=== PATIENT | male | born 1950 | race Caucasian/White ===

== ENCOUNTER 2017-06-12 09:30 | Inpatient (IN) ==
[2017-06-11 14:25] LABS: Basophils # (Auto) 0 K/mcL (0.0-0.3); Basophils % (Auto) 0.4 % (0.0-2.0); Eosinophils # (Auto) 0.1 K/mcL (0.0-0.7); Eosinophils % (Auto) 1.4 % (0.0-7.0); Lymphocytes # (Auto) 0.9 K/mcL (1.5-4.8); Lymphocytes % (Auto) 19.9 % (15.5-49.0); Mean Cell Volume 100.4 fL (80.0-100.0); Mean Corpuscular HGB Conc 34.7 g/dL (31.0-36.0); Mean Corpuscular Hemoglobin 34.8 pg (26.0-34.0); Monocytes # (Auto) 0.6 K/mcL (0.1-0.9); Monocytes % (Auto) 13.3 % (1.0-12.0); Platelet Count 113 K/mcL (140-440); RBC 3.77 M/mcL (4.50-5.90); Red Cell Distribution Width 14.4 % (11.5-14.5)
[2017-06-11 14:34] LABS: Appearance,Urine CLEAR; Bacteria,Urine 0 /hpf (0); Bilirubin,Urine NEG (NEG); Color,Urine AMBER; Glucose,Urine (UA) NEGATIVE (NEG); Leukocyte Esterase,Urine 25 /uL (NEG); Mucus,Urine MOD /hpf (0); Nitrate,Urine NEG (NEG); Protein,Urine NEG (NEG); Specific Gravity,Urine 1.024 (1.000-1.035); Urine Blood 0.03 mg/dL (<0.03); Urine RBC 3 /hpf (0-1); Urine Squamous Epithelial Cell < 1 /hpf (0-4); Urine WBC 14 /hpf (0-4)
[2017-06-11 14:42] LABS: Blood Urea Nitrogen 14 mg/dl (8-23)
[~2017-06-12 09:30] MED LIST: CELECOXIB 200 MG CAPSULE PO SCH; KETOROLAC 30 MG, ROPIVACAINE HCL/PF 49.5 ML, EPINEPHrine 0.5 MG, 0.9 % SODIUM CHLORIDE ... IJ SCH; PREGABALIN 75 MG CAPSULE PO SCH; ceFAZolin 1 GM VIAL IV SCH; oxyCODONE 10 MG TAB.ER.12H PO SCH
[2017-06-12] MEDS ORDERED: LIDOCAINE HCL/PF 100 MG/5 ML SYRINGE IV ONE (14:05)
[2017-06-12] MEDS ORDERED: MIDAZOLAM 2 MG/2 ML VIAL IV ONE (14:05)
[2017-06-12] MEDS ORDERED: SUCCINYLCHOLINE 20 MG/ML ML IV ONE (14:05)
[2017-06-12] MEDS ORDERED: PROPOFOL 200 MG/20 ML VIAL IV ONE (14:05)
[2017-06-12] MEDS ORDERED: fentaNYL 100 MCG/2 ML VIAL IV ONE (14:05)
[2017-06-12] MEDS ORDERED: DEXAMETHASONE 10 MG/ML VIAL IV ONE (14:05)
[2017-06-12] MEDS ORDERED: ONDANSETRON 4 MG/2 ML VIAL IV ONE (14:05)
[2017-06-12] MEDS ORDERED: IPRATROPIUM/ALBUTEROL 3 ML AMPUL.NEB NEB PRN (15:06)
[2017-06-12] MEDS ORDERED: fentaNYL 100 MCG/2 ML VIAL IV PRN (15:06)
[2017-06-12] MEDS ORDERED: ATROPINE SULFATE 0.4 MG/ML VIAL IV PRN (15:06)
[2017-06-12] MEDS ORDERED: ePHEDrine 50 MG/ML AMPUL IV PRN (15:06)
[2017-06-12] MEDS ORDERED: diphenhydrAMINE 50 MG/ML VIAL IV PRN (15:06)
[2017-06-12] MEDS ORDERED: FLUMAZENIL 0.1 MG/ML ML IV PRN (15:06)
[2017-06-12] MEDS ORDERED: ONDANSETRON 4 MG/2 ML VIAL IV PRN (15:06)
[2017-06-12] MEDS ORDERED: METOPROLOL TARTRATE 5 MG/5 ML VIAL IV PRN (15:06)
[2017-06-12] MEDS ORDERED: HYDROmorphone 2 MG/ML SYRINGE IV PRN (15:06)
[2017-06-12] MEDS ORDERED: NALOXONE HCL 0.4 MG/ML VIAL IV PRN (15:06)
[2017-06-12] MEDS ORDERED: MEPERIDINE 25 MG/ML SYRINGE IV PRN (15:06)
[2017-06-12] MEDS ORDERED: METHOCARBAMOL 1,000 MG/10 ML VIAL IV PRN (15:06)
[2017-06-12] MEDS ORDERED: BENZOCAINE/MENTHOL 1 LOZENGE PO PRN (15:06)
[2017-06-12] MEDS ORDERED: LACTATED RINGERS 1,000 ML IV SCH (15:15)
--- NOTE | 2017-06-12 15:40 | Brief Operative Note ---
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
[2017-06-12] MEDS ORDERED: TRANEXAMIC ACID 1,000 MG/10 ML VIAL IV ONE (15:42)
[2017-06-12] MEDS ORDERED: DEXTROSE 31 GM ORAL.SUSP PO PRN (15:42)
[2017-06-12] MEDS ORDERED: DEXTROSE 50% 50 ML VIAL IV PRN (15:42)
[2017-06-12] MEDS ORDERED: ZOLPIDEM 5 MG TABLET PO PRN (15:48)
--- NOTE | 2017-06-12 16:02 | Operative Note ---
DATE OF OPERATION: 06/12/2017 PREOPERATIVE DIAGNOSIS: Right knee instability, status post total knee arthroplasty. POSTOPERATIVE DIAGNOSIS: Right knee instability, status post total knee arthroplasty. PROCEDURE PERFORMED: Revision right total knee arthroplasty with replacement of tibial insert, removing 9 mm CR insert and replacing it with a 13 mm CS X3 Triathlon insert from [employer]. SURGEON: Eric Simmons MD. SURVEYOR GEODETIC: Matthew Heller PA-C. ANESTHESIA: Spinal plus general. DRAINS: None. SPECIMENS REMOVED: Removed polyethylene insert which was discarded, and culture and sensitivity of the deep joint fluid x2. BLOOD LOSS: 30 mL. COMPLICATIONS: None. POSTOPERATIVE CONDITION: Stable. INDICATIONS FOR SURGERY: This is a 67-year-old male who had a total knee arthroplasty done several years prior. He had done well initially from the surgery but then had progressive worsening pain. X-rays were negative. He had workup for infection which was negative. There was no evidence of loosening. However, on clinical exam, he had significant laxity. FINDINGS AT SURGERY: There was gross laxity to varus-valgus and anterior drawer. 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 Post-revision showed substantial improvement and stability with still good range of motion. PROCEDURE IN DETAIL: The patient had been seen preoperatively and informed consent had been obtained after discussion of risks and benefits of surgery. Risks including, but not limited to, bleeding; infection, possibly requiring implant removal and prolonged IV antibiotics; injury to nerves, blood vessels, and other surrounding structures; anesthetic risks; incomplete or no resolution of symptoms; stiffness; pain; instability; possibility of needing further revision surgery. He understood these risks and wished to proceed. Correct operative site was marked and then patient was taken to the operating room and general anesthesia was induced after spinal was given in preop holding. The right lower extremity was carefully prepped and draped in normal sterile fashion, and a time-out was performed verifying patient name, operative site, and plan. Esmarch was used to exsanguinate the extremity and tourniquet was inflated to 300 mmHg. His previous incision was used. A timeout was performed prior to the incision, and we did cover all skin surfaces with Ioban. Midline incision was made with a scalpel through skin and subcutaneous tissue. Irrisept was irrigated and then a medial parapatellar arthrotomy made. He had very little joint fluid, but we did go ahead and culture this with two culture swabs. Inspection of the joint revealed stained synovium which appeared to be from recurring hemarthrosis. Implants showed no evidence of loosening on the tibia or the femur. There was no purulence or evidence of deep infection. We did have gross instability. We went ahead and did a subperiosteal exposure of the anterior medial tibia. Exposure was challenging due to scarring of the retropatellar fat pad area. I did excise scar tissue from this. We removed the 9 insert. An 11 trial was placed which did improve stability, but we felt like still could be tightened more, and so we elected to open a 13 mm cruciate stabilized insert. We irrigated the joint with Irrisept. After waiting a minute, we pulse lavaged copiously with saline and then the insert was impacted. We carefully verified it was fully seated. We then felt our range of motion, and he had near full extension and much improved stability with no laxity to varus-valgus. We went ahead then and used a looped 0 Maxon with [id number] sutures around the patella, a running 0 Maxon for the patellar tendon and quad tendon. Another Irrisept irrigation was done, and after a minute more pulse lavage. Then 2-0 Monocryl was used for subcutaneous and placido for skin. Xeroform and sterile dressing were applied. Tourniquet was released. The patient was awakened, extubated, and transferred to recovery in stable condition. ALEX:sage Job ID: [id number] Doc ID: [id number] Eric Simmons MD
[2017-06-12] MEDS ORDERED: KETOROLAC 15 MG/ML VIAL IV ONE (16:39)
--- NOTE | 2017-06-12 16:50 | XRay Report ---
CLINICAL INFORMATION: Status post right total knee arthroplasty TECHNIQUE: AP, crosstable lateral, patellar views COMPARISON: None. FINDINGS: Status post right total knee arthroplasty. Distal femoral and proximal tibial complements are in anatomic positions. There is postsurgical soft tissue and intra-articular gas. There is skin placido anteriorly IMPRESSION: Status post right total knee arthroplasty Interpreted and Authenticated by: Ovidio Suarez 06/12/17
[2017-06-12] MEDS: 0.9 % SODIUM CHLORIDE 1,000 ML IV SCH (16:53)
[2017-06-12] MEDS: INSULIN LISPRO 1 UNIT/0.01 ML UNIT SQ SCH ×2 (18:18→21:58)
[2017-06-12] MEDS: HYDROCODONE/APAP 7.5/325MG TABLET PO PRN ×2 (19:26→21:57)
[2017-06-12] MEDS ORDERED: ASPIRIN 325 MG ENTERIC COATED TABLET PO SCH (21:00)
[2017-06-12] MEDS: 0.9 % SODIUM CHLORIDE 10 ML SYRINGE IV SCH (21:46)
[2017-06-12] MEDS: ceFAZolin 1 GM VIAL IV SCH (21:58)
[2017-06-13] MEDS: 0.9 % SODIUM CHLORIDE 1,000 ML IV SCH (02:43)
[2017-06-13] MEDS: HYDROCODONE/APAP 7.5/325MG TABLET PO PRN (03:38)
[2017-06-13] MEDS: 0.9 % SODIUM CHLORIDE 10 ML SYRINGE IV SCH (05:27)
[2017-06-13] MEDS: ceFAZolin 1 GM VIAL IV SCH (05:27)
--- NOTE | 2017-06-13 05:50 | Discharge Summary ---
Ortho Discharge - TKA - Patient Instructions Diet: Consistent Carbohydrate Activity: activity as tolerated, weight bearing as tolerated Total Knee Protocol: For Total Knee: Start ROM DENICE with stationary bike or rocking chair. Work on gaining full extension of knee. Posterior dislocation precautions provided. Hip abductor strengthening and gait training instructions provided. Apply Cryocuff as instructed. Dressing Care: May shower in 3 days, Cover dressing in shower, Aquacel Ag - leave on for 5 days - Follow Up Plan Follow Up Appointments: Eric Simmons MD [Physician] - 06/27/17 1:40 pm Disposition: Home, Self-Care Prognosis: Fair Rehab Potential: Fair - Orders For Discharge Additional Discharge Orders: Physical Therapy at Discharge - TKA Location: Determined By Patient Toilet Riser Discharge Order Location: Determined By Patient Walker Location: Determined By Patient
--- NOTE | 2017-06-13 06:16 | Orthopedic Progress Note ---
Subjective Patient information: Note initiated : 06/13/17 at 6:14 am Service Date, if different from initiated Date: [] Patient: Jamie Aggarwal 67 y/o M admitted on 06/12/17 for Rt Knee Revision w/ Removal of Tibial Insert*!party coordinator!. Chief Complaint: [] Principal diagnosis: s/p revision right total knee Interval history: pain tolerable, wants to d/c Objective Vital signs: Vital Signs Temp Pulse Resp BP BP Pulse Ox 06/13/17 03:44 98.0 F 60 16 118/70 95 06/13/17 00:00 97.6 F 66 18 131/81 98 06/12/17 19:47 97.4 F 66 14 145/90 98 06/12/17 18:47 66 130/92 99 06/12/17 18:13 62 155/88 99 06/12/17 17:47 62 158/98 84 L 06/12/17 17:32 76 153/83 98 06/12/17 17:17 62 159/107 97 06/12/17 17:02 69 162/95 06/12/17 16:45 97.4 F 60 12 130/76 99 06/12/17 16:26 60 12 132/74 99 06/12/17 16:11 61 14 113/94 98 06/12/17 15:56 97.5 F 70 16 138/73 99 06/12/17 11:27 97.6 F 65 20 111/68 96 Intake and Output 06/12/17 06/13/17 06/13/17 21:59 05:59 13:59 Intake Total 1640 / 1640 1483 / 1483 Output Total 1650 / 1650 825 / 825 Balance -10 / -10 658 / 658 Intake: IV 983 / 983 Sodium Chloride 0.9% 1, 983 / 983 000 ml @ 100 mls/hr IV . Q10H RICHARD Rx#:[id number] Oral 240 / 240 500 / 500 Epidural 1300 / 1300 IV - Manual Only 100 / 100 Output: Urine Catheter Amount 500 / 500 Void Amount 1050 / 1050 825 / 825 # of times incontinent of 0 / 0 urine Estimated Blood Loss 100 / 100 Other: Meal Dinner tuna sandwich, suger free ice cream, Percent of Meal Consumed 100% 100% Feeding Ability Assist with Tray Set Up # Voids 1 1 Weight 272 lb Intake & Output: Intake & Output 06/12/17 06/13/17 06/13/17 21:59 05:59 13:59 Intake Total 1640 / 1640 1483 / 1483 Output Total 1650 / 1650 825 / 825 Balance -10 / -10 658 / 658 Weight 272 lb Intake: IV 983 / 983 Sodium Chloride 0.9% 1, 983 / 983 000 ml @ 100 mls/hr IV . Q10H RICHARD Rx#:[id number] Oral 240 / 240 500 / 500 Epidural 1300 / 1300 IV - Manual Only 100 / 100 Output: Urine Catheter Amount 500 / 500 Void Amount 1050 / 1050 825 / 825 # of times incontinent of 0 / 0 urine Estimated Blood Loss 100 / 100 Other: Meal Dinner tuna sandwich, suger free ice cream, Percent of Meal Consumed 100% 100% Feeding Ability Assist with Tray Set Up # Voids 1 1 Dressing: Yes clean Neurological exam IM: Yes alert, Yes oriented X3 Extremities exam IM: Yes neurovascular intact - Labs CBC & BMP: 06/11/17 12:48 06/11/17 12:48 Labs: Orthopedic Labs 06/11/17 12:48 PT 16.0 H INR 1.2 H 06/11/17 12:48 Hgb 13.1 L Hct 37.9 L Assessment and Plan (1) S/P total knee arthroplasty POD#1 s/p poly exchange R total knee- -d/c home Status: Acute
[2017-06-13] MEDS: INSULIN LISPRO 1 UNIT/0.01 ML UNIT SQ SCH (07:13)
[2017-06-13] MEDS ORDERED: FUROSEMIDE 40 MG TABLET PO SCH (09:00)
[2017-06-13] MEDS ORDERED: SPIRONOLACTONE 25 MG TABLET PO SCH (09:00)
== END 2017-06-13 10:00 | disposition home or self-care (01) | DRG 488 ==
LOC: MEDSUR 10:24
PROVIDERS: ADMIT Orthopaedic Surgery; ATTEND Orthopaedic Surgery

== ENCOUNTER 2017-07-10 11:50 | Inpatient (IN) ==
[2017-07-10 13:12] LABS: Basophils # (Auto) 0 K/mcL (0.0-0.3); Basophils % (Auto) 0.3 % (0.0-2.0); Eosinophils # (Auto) 0.1 K/mcL (0.0-0.7); Eosinophils % (Auto) 1.5 % (0.0-7.0); Lymphocytes # (Auto) 0.7 K/mcL (1.5-4.8); Lymphocytes % (Auto) 10.6 % (15.5-49.0); Mean Cell Volume 99.4 fL (80.0-100.0); Mean Corpuscular HGB Conc 34.7 g/dL (31.0-36.0); Mean Corpuscular Hemoglobin 34.4 pg (26.0-34.0); Monocytes # (Auto) 1.2 K/mcL (0.1-0.9); Monocytes % (Auto) 18.6 % (1.0-12.0); Platelet Count 176 K/mcL (140-440); RBC 3.42 M/mcL (4.50-5.90); Red Cell Distribution Width 13.3 % (11.5-14.5)
[2017-07-10] MEDS ORDERED: BENZOCAINE/MENTHOL 1 LOZENGE PO PRN ×2 (13:40→15:38)
[2017-07-10] MEDS ORDERED: ACETAMINOPHEN 1,000 MG/100 ML BOTTLE IV ONE (13:40)
[2017-07-10] MEDS ORDERED: MEPERIDINE 25 MG/ML SYRINGE IV PRN (13:40)
[2017-07-10] MEDS ORDERED: METHOCARBAMOL 1,000 MG/10 ML VIAL IV PRN (13:40)
[2017-07-10] MEDS ORDERED: IPRATROPIUM/ALBUTEROL 3 ML AMPUL.NEB NEB PRN (13:40)
[2017-07-10] MEDS ORDERED: ONDANSETRON 4 MG/2 ML VIAL IV PRN ×2 (13:40→15:38)
[2017-07-10] MEDS ORDERED: diphenhydrAMINE 50 MG/ML VIAL IV PRN (13:40)
[2017-07-10] MEDS ORDERED: MIDAZOLAM 2 MG/2 ML VIAL IV ONE (13:45)
[2017-07-10] MEDS ORDERED: PROPOFOL 200 MG/20 ML VIAL IV ONE (13:45)
[2017-07-10] MEDS ORDERED: TRANEXAMIC ACID 1,000 MG/10 ML VIAL IV ONE ×2 (13:45→15:38)
[2017-07-10] MEDS ORDERED: ceFAZolin 1 GM VIAL IV ONE (13:45)
[2017-07-10] MEDS ORDERED: LIDOCAINE HCL/PF 100 MG/5 ML SYRINGE IV ONE (13:45)
[2017-07-10] MEDS ORDERED: GLYCOPYRROLATE 0.2 MG/ML VIAL IV ONE (13:45)
[2017-07-10] MEDS ORDERED: LACTATED RINGERS 1,000 ML IV SCH (13:45)
[2017-07-10] MEDS ORDERED: ROPIVACAINE HCL/PF 20 ML VIAL IJ ONE (13:45)
[2017-07-10] MEDS ORDERED: fentaNYL 100 MCG/2 ML VIAL IV ONE (13:45)
[2017-07-10] MEDS ORDERED: KETAMINE 100 MG/ML ML IV ONE (13:45)
[2017-07-10] MEDS ORDERED: ONDANSETRON 4 MG/2 ML VIAL IV ONE (13:45)
[2017-07-10 13:47] LABS: Appearance,Urine CLEAR; Bacteria,Urine 0 /hpf (0); Bilirubin,Urine NEG (NEG); Color,Urine YELLOW; Glucose,Urine (UA) NEGATIVE (NEG); Leukocyte Esterase,Urine NEG /uL (NEG); Mucus,Urine FEW /hpf (0); Nitrate,Urine NEG (NEG); Protein,Urine NEG (NEG); Urine Blood 0.03 mg/dL (<0.03); Urine RBC 1 /hpf (0-1); Urine Squamous Epithelial Cell < 1 /hpf (0-4); Urine WBC < 1 /hpf (0-4); Urobilinogen,Urine NEG (NEG)
[2017-07-10] MEDS ORDERED: TOBRAMYCIN SULFATE 1.2 GM VIAL TOPICAL ONE (15:25)
[2017-07-10] MEDS ORDERED: VANCOMYCIN 1 GM VIAL TOPICAL ONE (15:30)
--- NOTE | 2017-07-10 15:37 | Brief Operative Note ---
Date of procedure: 07/10/17 Pre-op diagnosis: R infected total knee, acute Post-op diagnosis: same Procedure: Irrigation and debridement of infected total knee, poly liner exchange, placement of antibiotic beads. Grafts/Implants: Yes (13 CS size 6 liner exchanged) Anesthesia: spinal, GLMA Findings: purulence into joint Complications: none Surgeon: Eric Simmons Molding Supervisor: Bala Heller Estimated blood loss (cc): 100 Specimens Removed/Pathology: other (2 superficial aspirates, 1 deep joint culture, 1 poly insert discarded) Disposition: PACU
[2017-07-10] MEDS ORDERED: BISACODYL 10 MG SUPP.RECT PR PRN (15:38)
[2017-07-10] MEDS ORDERED: POLYETHYLENE GLYCOL 3350 17 GM PACKET PO PRN (15:38)
[2017-07-10] MEDS ORDERED: FLEETS ADULT ENEMA PR PRN (15:38)
[2017-07-10] MEDS ORDERED: MAGNESIUM HYDROXIDE 30 ML ORAL.SUSP PO PRN (15:38)
[2017-07-10] MEDS ORDERED: DEXTROSE 50% 50 ML VIAL IV PRN (15:43)
[2017-07-10] MEDS ORDERED: DEXTROSE 31 GM ORAL.SUSP PO PRN (15:43)
[2017-07-10] MEDS ORDERED: ZOLPIDEM 5 MG TABLET PO PRN (15:48)
[2017-07-10] MEDS: fentaNYL 100 MCG/2 ML VIAL IV PRN ×7 (16:15→16:55)
[2017-07-10] MEDS ORDERED: VANCOMYCIN PER PHARMACY IV SCH (16:51)
[2017-07-10] MEDS ORDERED: VANCOMYCIN 1,000 MG in 0.9 % SODIUM CHLORIDE 250 ML IV ONE (17:00)
--- NOTE | 2017-07-10 17:21 | XRay Report ---
HISTORY: Reason for Exam: Follow-up incision and drainage and exchange of a probably line are in the right knee following previous arthroplasty FINDINGS: The total knee prosthesis remains well-positioned. There is no reabsorption of bone around the hardware. No fracture is present. Numerous radiopaque antibiotic pellets have been inserted into the joint. The majority of of them are in the suprapatellar bursa. IMPRESSION: Normal exam following debriding of the joint and insertion of pellets into the joint Interpreted and Authenticated by: Leroy Thornton 07/10/17
--- NOTE | 2017-07-10 17:34 | Internal Med History&Physical ---
Medical - H&P: HPI Patient information: Note initiated : 07/10/17 at 5:31 pm Service Date, if different from initiated Date: [] Patient: Jamie Aggarwal a 67 y/o M admitted on 07/10/17 for I&D & Rt Polyliner Exchange. Chief Complaint: [] History of present illness: Mr. Aggarwal is a 67 year old Male with h/o cirrhosis, liver ca, who has had a right knee washout and explant with antibiotic bead placement after being diagnosed with septic arthritis. Medicine is c onsulted for antibiotic management as well as medical management of medical issues. On my eval patient was post op and confused did not answer much questions, history obtained from chart review. The patient has cirrhosis on aldactone, lasix and lactulose for same. The patient has h/o right TKA in the past, it seems that he had worseing pain in that knee over the last few months, he was seen by Dr Perez and a Knee explant was done with thicke tibial insert around 1 month ago. The patient as per history fell and had some dihence of the wound. He was given oral antibiotics at that time. (keflex) The patient presented to [facility] on the july with worsening pain in the right leg and swelling and redness with subjective sensation of fever. blood and wound cultures sent. He was advised to continue antibiotics and follow up with Dr Simmons in the clinic. In the clinic the patient was deemed to have septic arthritis with pus coming out of the knee and he was taken to the OR for removal hard arboleda and washout, with antibiotic bead placement. He was noted to be more confused around that time. GIven patients history of cirrhosis and need for antibiotic managemnet, Medicine was consulted for further management. Pt was sleepy , just post op and therefore did not answer much, plan to check ammonia levels. ROS unobtainable: due to mental status Medical - H&P: PMH Medical history: liver ca hep c cirrhosis obesity Surgical history: right tka x2 latest 06/23, explant of tka today Pertinent family history: dad with cad mother with osteoporosis and dm Social history: right handed individual ex smoker present tobacco chewer. etoh? Medical - H&P: Meds Home Medications Medication Instructions Recorded Confirmed Type Furosemide [Lasix] 40 mg PO DAILY 06/11/17 07/10/17 History Lactulose [Cephulac] 10 gm PO BID 06/11/17 07/10/17 History Spironolactone [Aldactone] 100 mg PO DAILY 06/11/17 07/10/17 History Zolpidem [Ambien] 5 mg PO HSP PRN 06/11/17 07/10/17 History Aspirin [Ecotrin] 325 mg PO BID #28 tab.ec 06/13/17 07/10/17 Rx HYDROcodone/APAP 10/325MG [[place] 1 - 2 tab PO Q4H PRN #90 tablet 06/13/17 Rx 10/325Mg] Allergies Allergy/AdvReac Type Severity Reaction Status Date / Time No Known Drug Allergies Allergy Verified 07/10/17 13:25 Medical - H&P: Exam - Constitutional Vitals: Temp Pulse Resp BP Pulse Ox 98.0 F 82 16 132/68 99 07/10/17 17:00 07/10/17 17:00 07/10/17 17:00 07/10/17 17:00 07/10/17 17:00 Exam: GENERAL: The patient is a well-developed, well-nourished in no apparent distress. Is drowsy, but opens eyes to words but sleeps again. VITAL SIGNS: Reviewed and as noted elsewhere. HEENT: Head is normocephalic and atraumatic. Extraocular muscles are intact. Pupils are equal, round, Nares appeared normal. Mouth appears any without lesions. Mucous membranes are dry NECK: Normal to inspection, Supple, No lymphadenopathy or thyromegaly. LUNGS: Air entry equal on both sides, no wheezing, crackles or rhonchi noted. No accessory muscles of respiration HEART: Regular rate and rhythm normal, S1 and S2 heard, no Gallop, S3 or Rub Noted, No Gross murmur heard. ABDOMEN: Soft, nontender, and nondistended. Positive bowel sounds. No hepatosplenomegaly was noted. EXTREMITIES: No cyanosis, clubbing, rash, lesions or edema. NEUROLOGIC: Cranial nerves II through XII are grossly intact. Motor and Sensory System Grossly Intact limited exam given post op status. PSYCHIATRIC: drowsy. SKIN: No ulceration or wounds noted, No jaundice, No rash noted. Medical - H&P: Reslt - Labs CBC & Chem 7: 07/10/17 12:32 07/10/17 17:15 Labs: Short CBC 07/10/17 Range/Units 12:32 WBC 6.6 (4.5-11.0) K/mcL Hgb 11.8 L (13.5-16.5) g/dL Hct 34.0 L (41.0-55.0) % Plt Count 176 (140-440) K/mcL Urine 07/10/17 Range/Units 12:56 Urine Color Yellow Urine Appearance Clear Urine pH 5.0 (5.0-9.0) Ur Specific [place] 1.010 (1.000-1.035) Urine Protein Neg (NEG) mg/dL Urine Glucose (UA) Negative (NEG) mg/dL Medical - H&P: A/P - Narrative A/P Narrative: A/P Septic arthritis: patient has clinical picture of septic arthritis, the patient wbc is normal but given his cirroshisis status its likely he may not mount as good a immune response. Microbiology has been sent, will add fungal cultures, crystal, and cell count to the fluid. gram stain is negative. IV vancomycin ordered, as well as IV rocephin ordered. pt is on anceph as per post op policy, will discuss with Dr Simmons the need for this given coverage with vanco and rocephin. Will descalate antibiotics as per culture. will need atleast 4 weeks of antibiotics. will monitor labs, cbc, inpatient panel, crp and esr for now to establish baseline get blood cultures. cirrhosis: secondary to hep c, on Aldactone, lasix and lactulose, check ammonia level, if patient mental status does not clear in AM, will increase dose and consider NG administration. h/o hep c/ liver ca: review with patient when more awake DVT on asa 325 bid as per ortho policy Appreciate the opportunity to participate in the care of this patient. Medical - H&P: Qual - VTE Deep Vein Thrombosis/Pulmonary Embolism Present on Admission: No
[2017-07-10 18:01] LABS: Mean Cell Volume 98.6 fL (80.0-100.0); Mean Corpuscular HGB Conc 35.3 g/dL (31.0-36.0); Mean Corpuscular Hemoglobin 34.8 pg (26.0-34.0); Platelet Count 160 K/mcL (140-440); RBC 3.35 M/mcL (4.50-5.90); Red Cell Distribution Width 13.5 % (11.5-14.5)
[2017-07-10 18:10] LABS: ALT/SGPT 28 U/l (0-40); Albumin 2.9 gm/dL (3.2-5.2); Albumin/Globulin Ratio 0.9 (1.0-2.3); Alkaline Phosphatase 112 U/L (39-117); Blood Urea Nitrogen 11 mg/dl (8-23)
[2017-07-10 18:11] LABS: C-Reactive Protein 3.8 mg/dl (0.0-0.8)
[2017-07-10] MEDS: cefTRIAXone 2 GM in DEXTROSE 5% IN WATER 50 ML IV SCH (18:13)
[2017-07-10] MEDS: 0.9 % SODIUM CHLORIDE 1,000 ML IV SCH (18:43)
[2017-07-10 18:47] LABS: Basophils % (Manual) 1 % (0-2); Eosinophils % (Manual) 1 % (0-7); Lymphocytes % 17 % (15-49); Monocytes % (Manual) 8 % (1-12); Platelet Estimate NORMAL (NORMAL); RBC Morphology NORMAL (NORMAL); Segmented Neutrophils % 73 % (38-78)
[2017-07-10] MEDS ORDERED: VANCOMYCIN 500 MG in 0.9 % SODIUM CHLORIDE 100 ML IV ONE (19:00)
[2017-07-10] MEDS: oxyCODONE HCL 5 MG TABLET PO PRN (19:30)
[2017-07-10] MEDS ORDERED: ASPIRIN 325 MG ENTERIC COATED TABLET PO SCH (21:00)
[2017-07-10] MEDS: SENNOSIDES 1 TABLET PO SCH (21:47)
[2017-07-10] MEDS: LACTULOSE 20 GM/30 ML ORAL.SOL PO SCH (21:47)
[2017-07-10] MEDS: DOCUSATE SODIUM 100 MG CAPSULE PO SCH (21:47)
[2017-07-10] MEDS: ASPIRIN 325 MG ENTERIC COATED TABLET PO SCH (21:47)
[2017-07-10] MEDS: INSULIN LISPRO 1 UNIT/0.01 ML UNIT SQ SCH ×3 (21:48→22:11)
[2017-07-10] MEDS ORDERED: ceFAZolin 1 GM VIAL IV SCH (22:00)
[2017-07-10] MEDS: 0.9 % SODIUM CHLORIDE 10 ML SYRINGE IV SCH (22:50)
[2017-07-11] MEDS: 0.9 % SODIUM CHLORIDE 1,000 ML IV SCH ×4 (02:31→23:47)
[2017-07-11] MEDS: oxyCODONE HCL 5 MG TABLET PO PRN ×5 (02:31→23:47)
[2017-07-11 06:56] LABS: Basophils # (Auto) 0 K/mcL (0.0-0.3); Basophils % (Auto) 0.3 % (0.0-2.0); Eosinophils # (Auto) 0 K/mcL (0.0-0.7); Eosinophils % (Auto) 0.4 % (0.0-7.0); Granulocytes % (Auto) 75.6 % (38.0-78.0); Lymphocytes # (Auto) 0.7 K/mcL (1.5-4.8); Lymphocytes % (Auto) 9.5 % (15.5-49.0); Mean Cell Volume 98.3 fL (80.0-100.0); Mean Corpuscular Hemoglobin 34.4 pg (26.0-34.0); Monocytes % (Auto) 14.2 % (1.0-12.0); Platelet Count 154 K/mcL (140-440); RBC 3.17 M/mcL (4.50-5.90); Red Cell Distribution Width 12.9 % (11.5-14.5)
[2017-07-11 07:20] LABS: ALT/SGPT 26 U/l (0-40); Albumin 2.8 gm/dL (3.2-5.2); Albumin/Globulin Ratio 0.9 (1.0-2.3); Alkaline Phosphatase 105 U/L (39-117); Bilirubin,Direct 0.4 mg/dL (0.0-0.3); Blood Urea Nitrogen 11 mg/dl (8-23); C-Reactive Protein 4.4 mg/dl (0.0-0.8); Gamma Glutamyl Transpeptidase 49 U/L (8-61); Magnesium 1.7 mg/dL (1.6-2.5); Uric Acid 2.8 mg/dL (2.5-8.0)
--- NOTE | 2017-07-11 07:55 | Orthopedic Progress Note ---
Orthopedics - Auxillary Note - Subjective Patient Information: Note initiated : 07/11/17 at 7:54 am Service Date, if different from initiated Date: [] Patient: Jamie Aggarwal 67 y/o M admitted on 07/10/17 for I&D & Rt Polyliner Exchange. Chief Complaint: Moderate knee pain bandages c/d/i nvi-distal Vital Signs Temp Pulse Resp BP Pulse Ox 07/11/17 03:29 98.9 F 65 16 123/66 91 07/11/17 00:00 97.8 F 67 16 116/66 96 07/10/17 19:55 97.9 F 66 16 124/77 99 07/10/17 18:55 63 117/73 99 07/10/17 18:25 57 L 122/73 97 07/10/17 17:55 66 133/78 100 07/10/17 17:40 129/74 99 07/10/17 17:25 135/74 99 07/10/17 17:10 133/75 99 07/10/17 17:00 98.0 F 82 16 132/68 99 07/10/17 16:45 98.0 F 71 16 128/80 99 07/10/17 16:30 98.0 F 69 16 135/73 99 07/10/17 16:15 98.0 F 71 16 128/61 100 07/10/17 16:10 98.0 F 72 14 156/81 100 07/10/17 16:05 98.0 F 67 14 147/90 100 07/10/17 16:00 98.0 F 66 12 148/73 99 07/10/17 15:30 98.6 F 18 126/60 97 07/10/17 12:30 98.4 F 18 113/55 98 Intake and Output 07/10/17 07/11/17 07/11/17 21:59 05:59 13:59 Intake Total 1400 / 1400 1575 / 1575 Output Total 1635 / 1635 1070 / 1070 Balance -235 / -235 505 / 505 Intake: IV 975 / 975 Sodium Chloride 0.9% 1,000 ml @ 975 / 975 125 mls/hr IV .Q8H [facility] Rx#: [id number] Oral 0 / 0 600 / 600 IV - Manual Only 1400 / 1400 Output: Drainage 45 / 45 Right Knee 45 / 45 Right Knee Hemovac 0 / 0 Urine Catheter Amount 800 / 800 Void Amount 775 / 775 1025 / 1025 Estimated Blood Loss 60 / 60 Other: Weight 265 lb 9.6 oz Laboratory Results - last 24 hr 07/10/17 07/10/17 07/10/17 12:32 12:32 12:32 WBC 6.6 RBC 3.42 L Hgb 11.8 L Hct 34.0 L POC Hct 34.0 L MCV 99.4 MCH 34.4 H MCHC 34.7 RDW 13.3 Plt Count 176 MPV 7.4 Gran % 69.0 Lymph % (Auto) 10.6 L [place] % (Auto) 18.6 H Eos % (Auto) 1.5 Baso % (Auto) 0.3 Gran # 4.6 Lymph # (Auto) 0.7 L [place] # (Auto) 1.2 H Eos # (Auto) 0.1 Baso # (Auto) 0 Total Counted Seg Neutrophils % Band Neutrophils % Lymphocytes % Monocytes % (Manual) Eosinophils % (Manual) Basophils % (Manual) Platelet Estimate RBC Morphology ESR PT 15.4 H INR 1.2 H POC Sodium 136 Sodium POC Potassium 4.3 Potassium POC Chloride 100 Chloride Carbon Dioxide POC Total CO2 28 Anion Gap POC BUN 11 BUN Creatinine POC Creatinine 0.7 GFR Calculation Glucose POC Glucose 95 Uric Acid Calcium POC WB Ioniz Calcium 1.16 Phosphorus Magnesium Total Bilirubin Direct Bilirubin GGT AST ALT Alkaline Phosphatase Ammonia Lactate Dehydrogenase C-Reactive Protein Total Protein Albumin Globulin Albumin/Globulin Ratio Triglycerides Urine Color Urine Appearance Urine pH Ur Specific [place] Urine Protein Urine Glucose (UA) Urine Ketones Urine Occult Blood Urine Nitrate Urine Bilirubin Urine Urobilinogen Ur Leukocyte Esterase Urine RBC Urine WBC Ur Squamous Epith Cells Urine Bacteria Urine Mucus Ur Culture Indicated? Fluid Crystals Synovial Source Synovial Color Synovial Appearance Synovial Tot Cell Ct Synovial Nuc Cells Synovial Neutrophils Synovial Lymphocytes Synovial Other Cells Synovial Diff Comment 07/10/17 07/10/17 07/10/17 12:32 12:56 15:43 WBC RBC Hgb Hct POC Hct MCV MCH MCHC RDW Plt Count MPV Gran % Lymph % (Auto) [place] % (Auto) Eos % (Auto) Baso % (Auto) Gran # Lymph # (Auto) [place] # (Auto) Eos # (Auto) Baso # (Auto) Total Counted Seg Neutrophils % Band Neutrophils % Lymphocytes % Monocytes % (Manual) Eosinophils % (Manual) Basophils % (Manual) Platelet Estimate RBC Morphology ESR Cancelled PT INR POC Sodium Sodium POC Potassium Potassium POC Chloride Chloride Carbon Dioxide POC Total CO2 Anion Gap POC BUN BUN Creatinine POC Creatinine GFR Calculation Glucose POC Glucose Uric Acid Calcium POC WB Ioniz Calcium Phosphorus Magnesium Total Bilirubin Direct Bilirubin GGT AST ALT Alkaline Phosphatase Ammonia Lactate Dehydrogenase C-Reactive Protein Total Protein Albumin Globulin Albumin/Globulin Ratio Triglycerides Urine Color Yellow Urine Appearance Clear Urine pH 5.0 Ur Specific [place] 1.010 Urine Protein Neg Urine Glucose (UA) Negative Urine Ketones Neg Urine Occult Blood 0.03 A Urine Nitrate Neg Urine Bilirubin Neg Urine Urobilinogen Neg Ur Leukocyte Esterase Neg Urine RBC 1 Urine WBC < 1 Ur Squamous Epith Cells < 1 Urine Bacteria 0 Urine Mucus Few Ur Culture Indicated? No Fluid Crystals TNP Synovial Source Synovial Color Synovial Appearance Synovial Tot Cell Ct Synovial Nuc Cells Synovial Neutrophils Synovial Lymphocytes Synovial Other Cells Synovial Diff Comment 07/10/17 07/10/17 07/10/17 16:43 17:15 17:15 WBC 4.5 RBC 3.35 L Hgb 11.7 L Hct 33.1 L POC Hct MCV 98.6 MCH 34.8 H MCHC 35.3 RDW 13.5 Plt Count 160 MPV 7.3 L Gran % Lymph % (Auto) [place] % (Auto) Eos % (Auto) Baso % (Auto) Gran # Lymph # (Auto) [place] # (Auto) Eos # (Auto) Baso # (Auto) Total Counted 100 Seg Neutrophils % 73 Band Neutrophils % Not Reportable Lymphocytes % 17 Monocytes % (Manual) 8 Eosinophils % (Manual) 1 Basophils % (Manual) 1 Platelet Estimate Normal RBC Morphology Normal ESR PT INR POC Sodium Sodium POC Potassium Potassium POC Chloride Chloride Carbon Dioxide POC Total CO2 Anion Gap POC BUN BUN Creatinine POC Creatinine GFR Calculation Glucose POC Glucose Uric Acid Calcium POC WB Ioniz Calcium Phosphorus Magnesium Total Bilirubin Direct Bilirubin GGT AST ALT Alkaline Phosphatase Ammonia Lactate Dehydrogenase C-Reactive Protein 3.8 H Total Protein Albumin Globulin Albumin/Globulin Ratio Triglycerides Urine Color Urine Appearance Urine pH Ur Specific [place] Urine Protein Urine Glucose (UA) Urine Ketones Urine Occult Blood Urine Nitrate Urine Bilirubin Urine Urobilinogen Ur Leukocyte Esterase Urine RBC Urine WBC Ur Squamous Epith Cells Urine Bacteria Urine Mucus Ur Culture Indicated? Fluid Crystals Synovial Source TNP Synovial Color TNP Synovial Appearance TNP Synovial Tot Cell Ct Not Reportable Synovial Nuc Cells TNP Synovial Neutrophils TNP Synovial Lymphocytes Not Reportable Synovial Other Cells Not Reportable Synovial Diff Comment Not Reportable 07/10/17 07/10/17 07/10/17 17:15 17:15 17:24 WBC RBC Hgb Hct POC Hct MCV MCH MCHC RDW Plt Count MPV Gran % Lymph % (Auto) [place] % (Auto) Eos % (Auto) Baso % (Auto) Gran # Lymph # (Auto) [place] # (Auto) Eos # (Auto) Baso # (Auto) Total Counted Seg Neutrophils % Band Neutrophils % Lymphocytes % Monocytes % (Manual) Eosinophils % (Manual) Basophils % (Manual) Platelet Estimate RBC Morphology ESR 36 H PT INR POC Sodium Sodium 133 POC Potassium Potassium 4.4 POC Chloride Chloride 97 Carbon Dioxide 26 POC Total CO2 Anion Gap 10.0 POC BUN BUN 11 Creatinine 0.8 POC Creatinine GFR Calculation 92 Glucose 117 H POC Glucose Uric Acid Calcium 8.2 L POC WB Ioniz Calcium Phosphorus Magnesium Total Bilirubin 1.4 H Direct Bilirubin GGT AST 43 H ALT 28 Alkaline Phosphatase 112 Ammonia 24 Lactate Dehydrogenase C-Reactive Protein Total Protein 6.3 Albumin 2.9 L Globulin 3.4 Albumin/Globulin Ratio 0.9 L Triglycerides Urine Color Urine Appearance Urine pH Ur Specific [place] Urine Protein Urine Glucose (UA) Urine Ketones Urine Occult Blood Urine Nitrate Urine Bilirubin Urine Urobilinogen Ur Leukocyte Esterase Urine RBC Urine WBC Ur Squamous Epith Cells Urine Bacteria Urine Mucus Ur Culture Indicated? Fluid Crystals Synovial Source Synovial Color Synovial Appearance Synovial Tot Cell Ct Synovial Nuc Cells Synovial Neutrophils Synovial Lymphocytes Synovial Other Cells Synovial Diff Comment 07/11/17 07/11/17 07/11/17 05:30 05:30 05:30 WBC 7.4 RBC 3.17 L Hgb 10.9 L Hct 31.2 L POC Hct MCV 98.3 MCH 34.4 H MCHC 35.0 RDW 12.9 Plt Count 154 MPV 7.9 Gran % 75.6 Lymph % (Auto) 9.5 L [place] % (Auto) 14.2 H Eos % (Auto) 0.4 Baso % (Auto) 0.3 Gran # 5.6 Lymph # (Auto) 0.7 L [place] # (Auto) 1.0 H Eos # (Auto) 0 Baso # (Auto) 0 Total Counted Seg Neutrophils % Band Neutrophils % Lymphocytes % Monocytes % (Manual) Eosinophils % (Manual) Basophils % (Manual) Platelet Estimate RBC Morphology ESR TNP PT INR POC Sodium Sodium 136 POC Potassium Potassium 4.5 POC Chloride Chloride 101 Carbon Dioxide 24 POC Total CO2 Anion Gap 11.0 POC BUN BUN 11 Creatinine 0.7 POC Creatinine GFR Calculation 97 Glucose 110 H POC Glucose Uric Acid 2.8 Calcium 8.5 L POC WB Ioniz Calcium Phosphorus 3.5 Magnesium 1.7 Total Bilirubin 1.3 H Direct Bilirubin 0.4 H GGT 49 AST 40 H ALT 26 Alkaline Phosphatase 105 Ammonia 56 Lactate Dehydrogenase 225 C-Reactive Protein 4.4 H Total Protein 6.0 Albumin 2.8 L Globulin 3.2 Albumin/Globulin Ratio 0.9 L Triglycerides 38 Urine Color Urine Appearance Urine pH Ur Specific [place] Urine Protein Urine Glucose (UA) Urine Ketones Urine Occult Blood Urine Nitrate Urine Bilirubin Urine Urobilinogen Ur Leukocyte Esterase Urine RBC Urine WBC Ur Squamous Epith Cells Urine Bacteria Urine Mucus Ur Culture Indicated? Fluid Crystals Synovial Source Synovial Color Synovial Appearance Synovial Tot Cell Ct Synovial Nuc Cells Synovial Neutrophils Synovial Lymphocytes Synovial Other Cells Synovial Diff Comment 07/11/17 05:30 WBC RBC Hgb Hct POC Hct MCV MCH MCHC RDW Plt Count MPV Gran % Lymph % (Auto) [place] % (Auto) Eos % (Auto) Baso % (Auto) Gran # Lymph # (Auto) [place] # (Auto) Eos # (Auto) Baso # (Auto) Total Counted Seg Neutrophils % Band Neutrophils % Lymphocytes % Monocytes % (Manual) Eosinophils % (Manual) Basophils % (Manual) Platelet Estimate RBC Morphology ESR PT TNP INR TNP POC Sodium Sodium POC Potassium Potassium POC Chloride Chloride Carbon Dioxide POC Total CO2 Anion Gap POC BUN BUN Creatinine POC Creatinine GFR Calculation Glucose POC Glucose Uric Acid Calcium POC WB Ioniz Calcium Phosphorus Magnesium Total Bilirubin Direct Bilirubin GGT AST ALT Alkaline Phosphatase Ammonia Lactate Dehydrogenase C-Reactive Protein Total Protein Albumin Globulin Albumin/Globulin Ratio Triglycerides Urine Color Urine Appearance Urine pH Ur Specific [place] Urine Protein Urine Glucose (UA) Urine Ketones Urine Occult Blood Urine Nitrate Urine Bilirubin Urine Urobilinogen Ur Leukocyte Esterase Urine RBC Urine WBC Ur Squamous Epith Cells Urine Bacteria Urine Mucus Ur Culture Indicated? 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
[2017-07-11] MEDS: 0.9 % SODIUM CHLORIDE 10 ML SYRINGE IV SCH ×3 (08:28→20:23)
[2017-07-11] MEDS: INSULIN LISPRO 1 UNIT/0.01 ML UNIT SQ SCH ×4 (08:29→20:18)
[2017-07-11] MEDS: VANCOMYCIN 1,500 MG in 0.9 % SODIUM CHLORIDE 500 ML IV SCH (09:27)
[2017-07-11] MEDS: SPIRONOLACTONE 25 MG TABLET PO SCH (09:43)
[2017-07-11] MEDS: DOCUSATE SODIUM 100 MG CAPSULE PO SCH ×2 (09:43→20:16)
[2017-07-11] MEDS: ASPIRIN 325 MG ENTERIC COATED TABLET PO SCH ×2 (09:43→20:16)
[2017-07-11] MEDS: FUROSEMIDE 40 MG TABLET PO SCH (09:43)
[2017-07-11] MEDS: LACTULOSE 20 GM/30 ML ORAL.SOL PO SCH (09:44)
--- NOTE | 2017-07-11 10:49 | XRay Report ---
HISTORY: Reason for Exam:PICC PLACEMENT FINDINGS: PICC line has been inserted through the left arm. The tip is in the region of the left innominate vein. There is no widening of the mediastinum. No pneumothorax or pleural effusion are present. The lungs are clear. The heart is borderline enlarged. IMPRESSION: PICC line in the region of the left innominate vein. Nursing was called with the results Interpreted and Authenticated by: Leroy Thornton 07/11/17
--- NOTE | 2017-07-11 15:47 | Internal Med Progress Note ---
Medical - PN: Subj Patient information: Note initiated : 07/11/17 at 3:45 pm Service Date, if different from initiated Date: [] Patient: Jamie Aggarwal a 67 y/o M admitted on 07/10/17 for I&D & Rt Polyliner Exchange. Chief Complaint: [] Interval history: Mr. Aggarwal is a 67 year old Male with h/o cirrhosis, liver ca, who has had a right knee washout and explant with antibiotic bead placement after being diagnosed with septic arthritis. Medicine is c onsulted for antibiotic management as well as medical management of medical issues. On my eval patient was post op and confused did not answer much questions, history obtained from chart review. The patient has cirrhosis on aldactone, lasix and lactulose for same. The patient has h/o right TKA in the past, it seems that he had worseing pain in that knee over the last few months, he was seen by Dr Perez and a Knee explant was done with thick tibial insert around 1 month ago. The patient as per history fell and had some dihence of the wound. He was given oral antibiotics at that time. (keflex) The patient presented to [facility] on the july with worsening pain in the right leg and swelling and redness with subjective sensation of fever. blood and wound cultures sent. He was advised to continue antibiotics and follow up with Dr Simmons in the clinic. In the clinic the patient was deemed to have septic arthritis with pus coming out of the knee and he was taken to the OR for removal hard arboleda and washout, with antibiotic bead placement. He was noted to be more confused around that time. GIven patients history of cirrhosis and need for antibiotic managemnet, Medicine was consulted for further management. Pt was sleepy , just post op and therefore did not answer much, plan to check ammonia levels. july 11: patient seen examined mental status much better today, lying comfortably in bed, does have some pain in the knee, but otherwise doing well history and home meds reviewed with him Patient takes lacutolose bid, but only has one BM a day, educated the need for 2 -3 BM a day, Await cultures and sensitivities. continue with rocephin and vancomycin for now. Pertinent ROS: Denies headache, dizziness Denies chest pain, palpitations Denies cough or shortness of breath Denies abdominal pain, nausea or vomiting. - Constitutional Vitals: Vital Signs Temp Pulse Resp BP Pulse Ox 98.4 F 66 16 126/71 93 07/11/17 12:00 07/11/17 12:00 07/11/17 12:00 07/11/17 12:00 07/11/17 12:00 Period Temp Pulse Resp BP Sys/Roper Pulse Ox Last 24 Hr 97.8 F-98.9 F 57-82 12-16 116-156/61-90 91-100 Intake and Output 07/11/17 07/11/17 07/11/17 05:59 13:59 21:59 Intake Total 1575 / 1575 2165 / 2165 Output Total 1070 / 1070 510 / 510 Balance 505 / 505 1655 / 1655 Intake & Output: Intake & Output 07/11/17 07/11/17 07/11/17 05:59 13:59 21:59 Intake Total 1575 / 1575 2165 / 2165 Output Total 1070 / 1070 510 / 510 Balance 505 / 505 1655 / 1655 Intake: IV 975 / 975 1365 / 1365 Sodium Chloride 0.9% 1,000 ml @ 975 / 975 865 / 865 125 mls/hr IV .Q8H [facility] Rx#: [id number] Vancomycin 1,500 mg In Sodium 500 / 500 Chloride 0.9% 500 ml @ 333.3 mls/hr IV Q24H [facility] Rx#: [id number] Oral 600 / 600 800 / 800 Output: Drainage 45 / 45 110 / 110 Right Knee 45 / 45 Right Knee Hemovac 0 / 0 110 / 110 Void Amount 1025 / 1025 400 / 400 Exam: Constitutional; Afebrile, cooperative, alert, not in distress. Eyes- No icterus, , No periorbital swelling Ears- Ext ear normal, hearing normal to conversation. Neck- Midline trachea, supple Respiratory system: Air Entry equal on both sides, No crackles or wheezing, no rhonchi. CVS- Rate rhythm regular, S1,S2 heard, no gallop, no rub. Abdomen- Soft nontender abdomen, no organomegaly, no tenderness, no guarding or rigidity, JUICE TESTER- AOOx3, moving all extremities, no gross focal deficit noted. No astrexis, exam limited in the irght lower leg which is covered in bandage Medical - PN: Obj Da - Labs CBC & Chem 7: 07/11/17 05:30 07/11/17 05:30 Labs: Abnormal Lab Results 07/11/17 07/11/17 07/11/17 06:40 06:40 05:30 RBC Hgb Hct POC Hct MCH MPV Lymph % (Auto) [place] % (Auto) Lymph # (Auto) [place] # (Auto) ESR 31 H PT 16.4 H INR 1.3 H Glucose 110 H Calcium 8.5 L Total Bilirubin 1.3 H Direct Bilirubin 0.4 H AST 40 H C-Reactive Protein 4.4 H Albumin 2.8 L Albumin/Globulin Ratio 0.9 L Urine Occult Blood 07/11/17 07/10/17 07/10/17 05:30 17:15 17:15 RBC 3.17 L Hgb 10.9 L Hct 31.2 L POC Hct MCH 34.4 H MPV Lymph % (Auto) 9.5 L [place] % (Auto) 14.2 H Lymph # (Auto) 0.7 L [place] # (Auto) 1.0 H ESR 36 H PT INR Glucose 117 H Calcium 8.2 L Total Bilirubin 1.4 H Direct Bilirubin AST 43 H C-Reactive Protein Albumin 2.9 L Albumin/Globulin Ratio 0.9 L Urine Occult Blood 07/10/17 07/10/17 07/10/17 17:15 17:15 12:56 RBC 3.35 L Hgb 11.7 L Hct 33.1 L POC Hct MCH 34.8 H MPV 7.3 L Lymph % (Auto) [place] % (Auto) Lymph # (Auto) [place] # (Auto) ESR PT INR Glucose Calcium Total Bilirubin Direct Bilirubin AST C-Reactive Protein 3.8 H Albumin Albumin/Globulin Ratio Urine Occult Blood 0.03 A 07/10/17 07/10/17 07/10/17 12:32 12:32 12:32 RBC 3.42 L Hgb 11.8 L Hct 34.0 L POC Hct 34.0 L MCH 34.4 H MPV Lymph % (Auto) 10.6 L [place] % (Auto) 18.6 H Lymph # (Auto) 0.7 L [place] # (Auto) 1.2 H ESR PT 15.4 H INR 1.2 H Glucose Calcium Total Bilirubin Direct Bilirubin AST C-Reactive Protein Albumin Albumin/Globulin Ratio Urine Occult Blood Meds: Medications Aspirin (Ecotrin) 325 mg PO BID [facility] Last Admin: 07/11/17 09:43 Dose: 325 mg Bisacodyl (Dulcolax) 10 mg MO Q2-3DAYS PRN PRN Reason: Constipation Dextrose (Dextrose 50%) 0 ml IV UD PRN PRN Reason: Hypoglycemia Diagnostic Test (Pha) (Accu-Chek) 1 each FS ACHS [facility] Last Admin: 07/11/17 11:25 Dose: 1 each Docusate Sodium (Colace) 100 mg PO BID [facility] Last Admin: 07/11/17 09:43 Dose: 100 mg Furosemide (Lasix) 40 mg PO DAILY [facility] Last Admin: 07/11/17 09:43 Dose: 40 mg Glucose (Insta-Glucose) 15 gm PO PRN PRN PRN Reason: Hypoglycemia Heparin Sodium (Porcine) (Heparin Flush) 2 ml IV Q12 [facility] Sodium Chloride (Sodium Chloride 0.9%) 1,000 mls @ 125 mls/hr IV .Q8H [facility] Last Admin: 07/11/17 09:26 Dose: 125 mls/hr Ceftriaxone Sodium 2 gm/ (Dextrose) 50 mls @ 100 mls/hr IV Q24H [facility] Last Infusion: 07/10/17 19:15 Dose: Infused Vancomycin HCl 1,500 mg/ (Sodium Chloride) 500 mls @ 333.3 mls/hr IV Q24H [facility] Last Infusion: 07/11/17 11:00 Dose: Infused Insulin Human Lispro (Humalog) 0 unit SQ ACHS [facility] PRN Reason: Protocol Last Admin: 07/11/17 11:25 Dose: Not Given Lactulose (Cephulac) 10 gm PO TID [facility] Magnesium Hydroxide (Milk Of Magnesia) 30 ml PO BIDP PRN PRN Reason: Constipation Morphine Sulfate (Morphine) 0 mg IV Q1HP PRN PRN Reason: Pain Last Admin: 07/11/17 09:50 Dose: 4 mg Ondansetron HCl (Zofran) 4 mg IV Q4HP PRN PRN Reason: Nausea And Vomiting Oxycodone HCl (Roxicodone) 0 mg PO Q4HP PRN PRN Reason: Pain Last Admin: 07/11/17 11:26 Dose: 10 mg Polyethylene Glycol (Miralax) 17 gm PO DAILYP PRN PRN Reason: Constipation Senna (Senokot) 2 tab PO HS [facility] Last Admin: 07/10/17 21:47 Dose: 2 tab Sodium Biphosphate/Sodium Phosphate (Fleets Adult) 1 dose MO Q3-4DAYS PRN PRN Reason: Constipation Sodium Chloride (Saline Flush) 10 ml IV Q8 [facility] Last Admin: 07/11/17 14:49 Dose: Not Given Spironolactone (Aldactone) 100 mg PO DAILY [facility] Last Admin: 07/11/17 09:43 Dose: 100 mg Throat Lozenges (Cepacol) 1 lozenge PO PRN PRN PRN Reason: Sore Throat Vancomycin HCl (Vancomycin Per Pharmacy) 1 order IV UD [facility] Zolpidem Tartrate (Ambien) 5 mg PO HSP PRN PRN Reason: Sleep Medical - PN: A/P - Time Spent With Patient Total time spent is greater than 50% in coordination of care (as documented) at patient's floor/unit and/or counseling patient: - Narrative A/P Narrative: A/P Septic Arthritis Hep C Cirrhosis h/o Liver Ca Anemia continue vanco and rocephin, await sensitivities Not in Hepatic enceph but increase dose of lactulose for 2-3 soft BM in 24 hrs PICC line placed, will need abx for 4 weeks atleast outpatient ID follow up continue lasix and aldactone MELD score is 10 DVT porphylaxis as per ortho Regular diet. Medical - PN: Qual - VTE Deep Vein Thrombosis/Pulmonary Embolism Present on Admission: No
[2017-07-11] MEDS: cefTRIAXone 2 GM in DEXTROSE 5% IN WATER 50 ML IV SCH (18:09)
[2017-07-11] MEDS: SENNOSIDES 1 TABLET PO SCH (20:16)
[2017-07-11] MEDS ORDERED: LACTULOSE 20 GM/30 ML ORAL.SOL PO SCH (21:00)
[2017-07-12] MEDS: 0.9 % SODIUM CHLORIDE 10 ML SYRINGE IV SCH ×3 (05:22→21:58)
[2017-07-12 06:05] LABS: Basophils # (Auto) 0 K/mcL (0.0-0.3); Basophils % (Auto) 0 % (0.0-2.0); Eosinophils # (Auto) 0.1 K/mcL (0.0-0.7); Eosinophils % (Auto) 0.8 % (0.0-7.0); Granulocytes % (Auto) 78.5 % (38.0-78.0); Lymphocytes # (Auto) 0.6 K/mcL (1.5-4.8); Lymphocytes % (Auto) 7.3 % (15.5-49.0); Mean Cell Volume 98.8 fL (80.0-100.0); Mean Corpuscular HGB Conc 35.1 g/dL (31.0-36.0); Mean Corpuscular Hemoglobin 34.7 pg (26.0-34.0); Monocytes # (Auto) 1.2 K/mcL (0.1-0.9); Monocytes % (Auto) 13.4 % (1.0-12.0); Platelet Count 147 K/mcL (140-440); RBC 3.23 M/mcL (4.50-5.90); Red Cell Distribution Width 12.7 % (11.5-14.5)
[2017-07-12 06:26] LABS: ALT/SGPT 21 U/l (0-40); Albumin 2.8 gm/dL (3.2-5.2); Albumin/Globulin Ratio 0.8 (1.0-2.3); Alkaline Phosphatase 101 U/L (39-117); Bilirubin,Direct 0.5 mg/dL (0.0-0.3); Blood Urea Nitrogen 11 mg/dl (8-23); C-Reactive Protein 8.7 mg/dl (0.0-0.8); Gamma Glutamyl Transpeptidase 44 U/L (8-61); Magnesium 1.7 mg/dL (1.6-2.5); Uric Acid 2.5 mg/dL (2.5-8.0)
[2017-07-12] MEDS ORDERED: LACTULOSE 20 GM/30 ML ORAL.SOL PO ONE (06:26)
[2017-07-12] MEDS: INSULIN LISPRO 1 UNIT/0.01 ML UNIT SQ SCH ×2 (07:03→11:27)
[2017-07-12] MEDS: 0.9 % SODIUM CHLORIDE 1,000 ML IV SCH ×3 (07:04→23:47)
[2017-07-12] MEDS: LACTULOSE 20 GM/30 ML ORAL.SOL PO SCH ×3 (09:22→20:06)
[2017-07-12] MEDS: ASPIRIN 325 MG ENTERIC COATED TABLET PO SCH ×2 (09:22→20:05)
[2017-07-12] MEDS: FUROSEMIDE 40 MG TABLET PO SCH (09:23)
[2017-07-12] MEDS: DOCUSATE SODIUM 100 MG CAPSULE PO SCH ×2 (09:23→20:05)
[2017-07-12] MEDS: SPIRONOLACTONE 25 MG TABLET PO SCH (09:23)
--- NOTE | 2017-07-12 10:00 | Orthopedic Progress Note ---
Subjective Patient information: Note initiated : 07/12/17 at 9:59 am Service Date, if different from initiated Date: [] Patient: Jamie Aggarwal 67 y/o M admitted on 07/10/17 for I&D & Rt Polyliner Exchange. Chief Complaint: [] Principal diagnosis: s/p I&D of infected R TKA revision Interval history: c/o pain, but reasonably controlled Objective Vital signs: Vital Signs Temp Pulse Pulse Resp BP Pulse Ox 07/12/17 07:12 98.9 F 18 124/66 96 07/12/17 04:00 95 07/12/17 03:58 98.2 F 62 16 119/68 84 L 07/11/17 23:40 73 18 93 07/11/17 23:38 99.2 F H 74 18 151/78 88 L 07/11/17 19:36 98.8 F 65 16 132/60 94 07/11/17 16:00 98.0 F 70 18 126/70 93 07/11/17 12:00 98.4 F 66 16 126/71 93 Intake and Output 07/11/17 07/12/17 07/12/17 21:59 05:59 13:59 Intake Total 1920 / 1920 881 / 881 Output Total 760 / 760 1675 / 1675 100 / 100 Balance 1160 / 1160 -794 / -794 -100 / -100 Intake: IV 1000 / 1000 681 / 681 Sodium Chloride 0.9% 1,000 ml @ 1000 / 1000 681 / 681 125 mls/hr IV .Q8H [facility] Rx#: [id number] Oral 920 / 920 200 / 200 Output: Drainage 160 / 160 Right Knee Hemovac 160 / 160 Void Amount 600 / 600 1675 / 1675 100 / 100 Other: Meal Dinner Percent of Meal Consumed 25% Feeding Ability Independent # Voids 1 Weight 266 lb Intake & Output: Intake & Output 07/11/17 07/12/17 07/12/17 21:59 05:59 13:59 Intake Total 0 / 1920 881 / 881 Output Total 760 / 760 1675 / 1675 100 / 100 Balance 1160 / 1160 -794 / -794 -100 / -100 Weight 266 lb Intake: IV 1000 / 1000 681 / 681 Sodium Chloride 0.9% 1,000 ml @ 1000 / 1000 681 / 681 125 mls/hr IV .Q8H [facility] Rx#: [id number] Oral 920 / 920 200 / 200 Output: Drainage 160 / 160 Right Knee Hemovac 160 / 160 Void Amount 600 / 600 1675 / 1675 100 / 100 Other: Meal Dinner Percent of Meal Consumed 25% Feeding Ability Independent # Voids 1 Dressing: Yes clean, Yes dry, Yes intact Extremities exam IM: Yes neurovascular intact - Labs CBC & BMP: 07/12/17 04:59 07/12/17 04:59 Labs: Orthopedic Labs 07/12/17 07/11/17 07/11/17 04:59 06:40 05:30 PT 16.8 H 16.4 H TNP INR 1.3 H 1.3 H TNP 07/10/17 12:32 PT 15.4 H INR 1.2 H 07/12/17 07/11/17 07/10/17 04:59 05:30 17:15 Hgb 11.2 L 10.9 L 11.7 L Hct 32.0 L 31.2 L 33.1 L 07/10/17 12:32 Hgb 11.8 L Hct 34.0 L Assessment and Plan (1) Infection of total knee replacement POD#2 s/p I&D, cultures still neg to date- -await final cultures -will need 6 weeks IV Gauri, social work to arrange, likely d/c home tomorrow -hospitalist following Status: Acute
--- NOTE | 2017-07-12 10:27 | Discharge Summary ---
Ortho Discharge - TKA - Patient Instructions Diet: Regular Diet Activity: weight bearing as tolerated Total Knee Protocol: For Total Knee: Start ROM DENICE with stationary bike or rocking chair. Work on gaining full extension of knee. Posterior dislocation precautions provided. Hip abductor strengthening and gait training instructions provided. Apply Cryocuff as instructed. Dressing Care: Cover dressing in shower, Aquacel Ag - leave on for 5 days - Problem Maintenance (1) Infection of total knee replacement Status: Acute - Follow Up Plan Follow Up Appointments: Eric Simmons MD [Physician] - Disposition: Home Health Service Prognosis: Fair Rehab Potential: Fair - Orders For Discharge Additional Discharge Orders: Physical Therapy at Discharge - TKA Location: Determined By Patient C-Reactive Protein Location: Determined By Patient Erythrocyte Sedimentation Rate Location: Determined By Patient
[2017-07-12] MEDS: VANCOMYCIN 1,500 MG in 0.9 % SODIUM CHLORIDE 500 ML IV SCH ×3 (10:49→21:53)
--- NOTE | 2017-07-12 11:14 | Internal Med Progress Note ---
Medical - PN: Subj Patient information: Note initiated : 07/12/17 at 11:11 am Service Date, if different from initiated Date: [] Patient: Jamie Aggarwal a 67 y/o M admitted on 07/10/17 for I&D & Rt Polyliner Exchange. Chief Complaint: [] Interval history: Mr. Aggarwal is a 67 year old Male with h/o cirrhosis, liver ca, who has had a right knee washout and explant with antibiotic bead placement after being diagnosed with septic arthritis. Medicine is c onsulted for antibiotic management as well as medical management of medical issues. On my eval patient was post op and confused did not answer much questions, history obtained from chart review. The patient has cirrhosis on aldactone, lasix and lactulose for same. The patient has h/o right TKA in the past, it seems that he had worseing pain in that knee over the last few months, he was seen by Dr Perez and a Knee explant was done with thick tibial insert around 1 month ago. The patient as per history fell and had some dihence of the wound. He was given oral antibiotics at that time. (keflex) The patient presented to [facility] on the july with worsening pain in the right leg and swelling and redness with subjective sensation of fever. blood and wound cultures sent. He was advised to continue antibiotics and follow up with Dr Simmons in the clinic. In the clinic the patient was deemed to have septic arthritis with pus coming out of the knee and he was taken to the OR for removal hard arboleda and washout, with antibiotic bead placement. He was noted to be more confused around that time. GIven patients history of cirrhosis and need for antibiotic managemnet, Medicine was consulted for further management. Pt was sleepy , just post op and therefore did not answer much, plan to check ammonia levels. july 11: patient seen examined mental status much better today, lying comfortably in bed, does have some pain in the knee, but otherwise doing well history and home meds reviewed with him Patient takes lacutolose bid, but only has one BM a day, educated the need for 2 -3 BM a day, Await cultures and sensitivities. continue with rocephin and vancomycin for now. Jul 12: Patient seen examined, overnight had some nausea and one episode of vomiting as per patient, nurse notes he was more confused. This am doing well, but still tired no BM yet dose of lactuose increased to 20mg TID, culture neg so far Plan for 6 weeks abx, vanco and rocephin unless microbiology suggests otherwise. if mental status clears, can d/c in AM, ortho cleared for D/C Pertinent ROS: Denies headache, dizziness Denies chest pain, palpitations Denies cough or shortness of breath Denies abdominal pain, nausea or vomiting. - Constitutional Vitals: Vital Signs Temp Pulse Resp BP Pulse Ox 98.9 F 62 18 124/66 96 07/12/17 07:12 07/12/17 03:58 07/12/17 07:12 07/12/17 07:12 07/12/17 07:12 Period Temp Pulse Resp BP Sys/Roper Pulse Ox Last 24 Hr 98.0 F-99.2 F 62-74 16-18 119-151/60-78 84-96 Intake and Output 07/11/17 07/12/17 07/12/17 21:59 05:59 13:59 Intake Total 1920 / 1920 881 / 881 Output Total 760 / 760 1675 / 1675 100 / 100 Balance 1160 / 1160 -794 / -794 -100 / -100 Weight 266 lb Intake & Output: Intake & Output 07/11/17 07/12/17 07/12/17 21:59 05:59 13:59 Intake Total 1920 / 1920 881 / 881 Output Total 760 / 760 1675 / 1675 100 / 100 Balance 1160 / 1160 -794 / -794 -100 / -100 Weight 266 lb Intake: IV 1000 / 1000 681 / 681 Sodium Chloride 0.9% 1,000 ml @ 1000 / 1000 681 / 681 125 mls/hr IV .Q8H [facility] Rx#: [id number] Oral 920 / 920 200 / 200 Output: Drainage 160 / 160 Right Knee Hemovac 160 / 160 Void Amount 600 / 600 1675 / 1675 100 / 100 Other: Meal Dinner Percent of Meal Consumed 25% Feeding Ability Independent # Voids 1 Exam: Constitutional; Afebrile, cooperative, alert, not in distress. Eyes- No icterus, , No periorbital swelling Ears- Ext ear normal, hearing normal to conversation. Neck- Midline trachea, supple Respiratory system: Air Entry equal on both sides, No crackles or wheezing, no rhonchi. CVS- Rate rhythm regular, S1,S2 heard, no gallop, no rub. Abdomen- Soft nontender abdomen, no organomegaly, no tenderness, no guarding or rigidity, TRAINING DEVELOPMENT DIRECTOR- AOOx3, moving all extremities, no gross focal deficit noted. No [employer] Medical - PN: Obj Da - Labs CBC & Chem 7: 07/12/17 04:59 07/12/17 04:59 Labs: Abnormal Lab Results 07/12/17 07/12/17 07/12/17 07:04 04:59 04:59 RBC Hgb Hct POC Hct MCH MPV Gran % Lymph % (Auto) Laurel % (Auto) Lymph # (Auto) Laurel # (Auto) ESR 39 H PT 16.8 H INR 1.3 H Sodium 131 L Glucose 110 H Calcium Total Bilirubin 1.7 H Direct Bilirubin 0.5 H AST Lactate Dehydrogenase 259 H C-Reactive Protein 8.7 H Albumin 2.8 L Albumin/Globulin Ratio 0.8 L Urine Occult Blood 07/12/17 07/11/17 07/11/17 04:59 06:40 06:40 RBC 3.23 L Hgb 11.2 L Hct 32.0 L POC Hct MCH 34.7 H MPV Gran % 78.5 H Lymph % (Auto) 7.3 L Laurel % (Auto) 13.4 H Lymph # (Auto) 0.6 L Laurel # (Auto) 1.2 H ESR 31 H PT 16.4 H INR 1.3 H Sodium Glucose Calcium Total Bilirubin Direct Bilirubin AST Lactate Dehydrogenase C-Reactive Protein Albumin Albumin/Globulin Ratio Urine Occult Blood 07/11/17 07/11/17 07/10/17 05:30 05:30 17:15 RBC 3.17 L Hgb 10.9 L Hct 31.2 L POC Hct MCH 34.4 H MPV Gran % Lymph % (Auto) 9.5 L Laurel % (Auto) 14.2 H Lymph # (Auto) 0.7 L Laurel # (Auto) 1.0 H ESR PT INR Sodium Glucose 110 H 117 H Calcium 8.5 L 8.2 L Total Bilirubin 1.3 H 1.4 H Direct Bilirubin 0.4 H AST 40 H 43 H Lactate Dehydrogenase C-Reactive Protein 4.4 H Albumin 2.8 L 2.9 L Albumin/Globulin Ratio 0.9 L 0.9 L Urine Occult Blood 07/10/17 07/10/17 07/10/17 17:15 17:15 17:15 RBC 3.35 L Hgb 11.7 L Hct 33.1 L POC Hct MCH 34.8 H MPV 7.3 L Gran % Lymph % (Auto) Laurel % (Auto) Lymph # (Auto) Laurel # (Auto) ESR 36 H PT INR Sodium Glucose Calcium Total Bilirubin Direct Bilirubin AST Lactate Dehydrogenase C-Reactive Protein 3.8 H Albumin Albumin/Globulin Ratio Urine Occult Blood 07/10/17 07/10/17 07/10/17 12:56 12:32 12:32 RBC Hgb Hct POC Hct 34.0 L MCH MPV Gran % Lymph % (Auto) Laurel % (Auto) Lymph # (Auto) Laurel # (Auto) ESR PT 15.4 H INR 1.2 H Sodium Glucose Calcium Total Bilirubin Direct Bilirubin AST Lactate Dehydrogenase C-Reactive Protein Albumin Albumin/Globulin Ratio Urine Occult Blood 0.03 A 07/10/17 12:32 RBC 3.42 L Hgb 11.8 L Hct 34.0 L POC Hct MCH 34.4 H MPV Gran % Lymph % (Auto) 10.6 L Laurel % (Auto) 18.6 H Lymph # (Auto) 0.7 L Laurel # (Auto) 1.2 H ESR PT INR Sodium Glucose Calcium Total Bilirubin Direct Bilirubin AST Lactate Dehydrogenase C-Reactive Protein Albumin Albumin/Globulin Ratio Urine Occult Blood Meds: Medications Aspirin (Ecotrin) 325 mg PO BID [facility] Last Admin: 07/12/17 09:22 Dose: 325 mg Bisacodyl (Dulcolax) 10 mg MA Q2-3DAYS PRN PRN Reason: Constipation Dextrose (Dextrose 50%) 0 ml IV UD PRN PRN Reason: Hypoglycemia Diagnostic Test (Pha) (Accu-Chek) 1 each FS ACHS [facility] Last Admin: 07/12/17 07:02 Dose: 1 each Docusate Sodium (Colace) 100 mg PO BID [facility] Last Admin: 07/12/17 09:23 Dose: 100 mg Furosemide (Lasix) 40 mg PO DAILY [facility] Last Admin: 07/12/17 09:23 Dose: 40 mg Glucose (Insta-Glucose) 15 gm PO PRN PRN PRN Reason: Hypoglycemia Heparin Sodium (Porcine) (Heparin Flush) 2 ml IV Q12 [facility] Last Admin: 07/12/17 09:23 Dose: 2 ml Sodium Chloride (Sodium Chloride 0.9%) 1,000 mls @ 125 mls/hr IV .Q8H [facility] Last Admin: 07/12/17 07:04 Dose: Not Given Ceftriaxone Sodium 2 gm/ (Dextrose) 50 mls @ 100 mls/hr IV Q24H [facility] Last Admin: 07/11/17 18:09 Dose: 100 mls/hr Vancomycin HCl 1,500 mg/ (Sodium Chloride) 500 mls @ 333.3 mls/hr IV Q12H [facility] Last Admin: 07/12/17 10:49 Dose: 333.3 mls/hr Insulin Human Lispro (Humalog) 0 unit SQ ACHS [facility] PRN Reason: Protocol Last Admin: 07/12/17 07:03 Dose: Not Given Lactulose (Cephulac) 20 gm PO TID [facility] Last Admin: 07/12/17 09:22 Dose: 20 gm Magnesium Hydroxide (Milk Of Magnesia) 30 ml PO BIDP PRN PRN Reason: Constipation Morphine Sulfate (Morphine) 0 mg IV Q1HP PRN PRN Reason: Pain Last Admin: 07/11/17 09:50 Dose: 4 mg Ondansetron HCl (Zofran) 4 mg IV Q4HP PRN PRN Reason: Nausea And Vomiting Last Admin: 07/11/17 23:58 Dose: 4 mg Oxycodone HCl (Roxicodone) 0 mg PO Q4HP PRN PRN Reason: Pain Last Admin: 07/11/17 23:47 Dose: 10 mg Polyethylene Glycol (Miralax) 17 gm PO DAILYP PRN PRN Reason: Constipation Senna (Senokot) 2 tab PO HS [facility] Last Admin: 07/11/17 20:16 Dose: 2 tab Sodium Biphosphate/Sodium Phosphate (Fleets Adult) 1 dose MA Q3-4DAYS PRN PRN Reason: Constipation Sodium Chloride (Saline Flush) 10 ml IV Q8 [facility] Last Admin: 07/12/17 05:22 Dose: 10 ml Spironolactone (Aldactone) 100 mg PO DAILY [facility] Last Admin: 07/12/17 09:23 Dose: 100 mg Throat Lozenges (Cepacol) 1 lozenge PO PRN PRN PRN Reason: Sore Throat Vancomycin HCl (Vancomycin Per Pharmacy) 1 [place] [facility] [place] Zolpidem Tartrate (Ambien) 5 mg PO HSP PRN PRN Reason: Sleep Last Admin: 07/11/17 22:27 Dose: 5 mg Medical - PN: A/P - Time Spent With Patient Total time spent is greater than 50% in coordination of care (as documented) at patient's floor/unit and/or counseling patient: - Narrative A/P Narrative: A/P Septic Arthritis Hep C Cirrhosis h/o Liver Ca Anemia continue vanco and rocephin, await sensitivities, culture neg so far Not in Hepatic enceph this AM, but pt does have intermittent confusion and no bm since admission, lactulose increased to 20mg TID PICC line placed, will need abx for 6 weeks atleast outpatient ID follow up/ Ortho follow up continue lasix and aldactone MELD score is 10 DVT porphylaxis as per ortho Regular diet. Medical - PN: Qual - VTE Deep Vein Thrombosis/Pulmonary Embolism Present on Admission: No
[2017-07-12] MEDS: oxyCODONE HCL 5 MG TABLET PO PRN ×3 (13:51→23:46)
[2017-07-12] MEDS ORDERED: ESCITALOPRAM 10 MG TABLET PO ONE (16:00)
[2017-07-12] MEDS: cefTRIAXone 2 GM in DEXTROSE 5% IN WATER 50 ML IV SCH (17:31)
[2017-07-12] MEDS: SENNOSIDES 1 TABLET PO SCH (20:05)
[2017-07-13 07:36] LABS: Basophils # (Auto) 0 K/mcL (0.0-0.3); Basophils % (Auto) 0.2 % (0.0-2.0); Eosinophils # (Auto) 0.1 K/mcL (0.0-0.7); Eosinophils % (Auto) 1.1 % (0.0-7.0); Lymphocytes # (Auto) 0.6 K/mcL (1.5-4.8); Lymphocytes % (Auto) 8.1 % (15.5-49.0); Mean Cell Volume 99.3 fL (80.0-100.0); Mean Corpuscular HGB Conc 34.8 g/dL (31.0-36.0); Mean Corpuscular Hemoglobin 34.5 pg (26.0-34.0); Monocytes # (Auto) 1.1 K/mcL (0.1-0.9); Monocytes % (Auto) 14.6 % (1.0-12.0); Platelet Count 149 K/mcL (140-440); RBC 3.29 M/mcL (4.50-5.90); Red Cell Distribution Width 12.8 % (11.5-14.5)
[2017-07-13 08:10] LABS: ALT/SGPT 20 U/l (0-40); Albumin 3.1 gm/dL (3.2-5.2); Albumin/Globulin Ratio 0.9 (1.0-2.3); Alkaline Phosphatase 107 U/L (39-117); Bilirubin,Direct 0.4 mg/dL (0.0-0.3); Blood Urea Nitrogen 13 mg/dl (8-23); C-Reactive Protein 9.5 mg/dl (0.0-0.8); Gamma Glutamyl Transpeptidase 48 U/L (8-61); Magnesium 1.9 mg/dL (1.6-2.5); Uric Acid 2.9 mg/dL (2.5-8.0)
[2017-07-13] MEDS ORDERED: SPIRONOLACTONE 25 MG TABLET PO SCH (09:00)
[2017-07-13] MEDS ORDERED: ESCITALOPRAM 10 MG TABLET PO SCH (09:00)
[2017-07-13 09:05] LABS: Erythrocyte Sedimentation Rate 41 mm/hr (0-15)
--- NOTE | 2017-07-13 09:15 | Discharge Summary ---
Providers - Providers Patient information: Note initiated : 07/13/17 at 9:14 am Service Date, if different from initiated Date: [] Patient: Jamie Aggarwal 67 y/o M admitted on 07/10/17 for I&D & Rt Polyliner Exchange. Chief Complaint: [right knee infection s/p TKA] POD #3 s/p right knee I&D and polyliner exchange. He is doing quite well this morning and has no questions. He denies numbness, tingling or calf pain. Discharge date: 07/13/17 Hospitalization Hospital course: Patient was admitted on 07/10/17 for right knee I&D with poly exchange. This procedure occurred without event. He was admitted to the hospital for observation, medical management and pain control. He will d/c to home today and f/u with Dr. Simmons in clinic in 2 weeks time. The length of his stay occurred without major event. Discharge diagnosis: right knee infection Exam - Exam Incision healing: Yes Clean and dry: Yes Weight bearing status: as tolerated (with assistive device) Ortho Discharge - TKA - Patient Instructions Diet: Regular Diet Activity: weight bearing as tolerated Total Knee Protocol: For Total Knee: Start ROM DENICE with stationary bike or rocking chair. Work on gaining full extension of knee. Posterior dislocation precautions provided. Hip abductor strengthening and gait training instructions provided. Apply Cryocuff as instructed. Patient Education: Aspirin (By mouth), Oxycodone, Rapid Release (By mouth), Vancomycin (Injection), Revision Total Joint Arthroplasty (DC), Incision and Drainage (DC) Additional Instructions: Discharge Instructions: Do the exercises at home that physical therapy gave you. You will have home health for physical therapy. Take your prescription, photo ID, insurance cards, and current medication list with you to your first physical therapy appointment. Wear comfortable clothing for your physical therapy. Weight bearing as tolerated. You have the Aquacel Ag dressing, leave in place for 7 days then remove. If dressing becomes soiled (turns black), remove and use gauze 4x4 dressing and silvasorb ointment and change daily. Keep incision clean and dry. You may start showering on post op day #2. To avoid constipation while taking any narcotic pain medication, take an over the counter stool softener/laxative. Use your Cryocuff or ice packs as directed, on for 20 minutes at a time throughout the day. This and elevation will help with pain and swelling. Call your physician for fevers above 100.5 or pain not controlled by medication. Your prescriptions are with your discharge information. Some medications were electronically transmitted to your pharmacy of choice. - Follow Up Plan Follow Up Appointments: Eric Simmons MD [Physician] - 07/25/17 9:20 am ( ) Disposition: Home Health Service Prognosis: Fair Rehab Potential: Fair - Orders For Discharge Prescriptions: Aspirin [Ecotrin] 325 mg PO DAILY #14 tab.ec oxyCODONE HCL [Roxicodone] 5 - 10 mg PO Q4HP PRN #60 tab PRN Reason: Pain Vancomycin Per Pharmacy 1 order IV ONCE #40 miscell Additional Discharge Orders: Physical Therapy at Discharge - TKA Location: Determined By Patient C-Reactive Protein Location: Determined By Patient Erythrocyte Sedimentation Rate Location: Determined By Patient Pending Studies Resuscitation Status Full Code Diet Regular Diet Start Sat 6 Dinner Aspirin (Ecotrin) 325 mg PO BID [facility] Last Admin: 07/12/17 20:05 Dose: 325 mg Admin: 07/12/17 09:22 Dose: 325 mg Admin: 07/11/17 20:16 Dose: 325 mg Admin: 07/11/17 09:43 Dose: 325 mg Admin: 07/10/17 21:47 Dose: 325 mg Docusate Sodium (Colace) 100 mg PO BID [facility] Last Admin: 07/12/17 20:05 Dose: 100 mg Admin: 07/12/17 09:23 Dose: 100 mg Admin: 07/11/17 20:16 Dose: 100 mg Admin: 07/11/17 09:43 Dose: 100 mg Admin: 07/10/17 21:47 Dose: 100 mg Furosemide (Lasix) 40 mg PO DAILY [facility] Last Admin: 07/12/17 09:23 Dose: 40 mg Admin: 07/11/17 09:43 Dose: 40 mg Heparin Sodium (Porcine) (Heparin Flush) 2 ml IV Q12 [facility] Last Admin: 07/12/17 20:06 Dose: 2 ml Admin: 07/12/17 09:23 Dose: 2 ml Admin: 07/11/17 20:22 Dose: 2 ml Sodium Chloride (Sodium Chloride 0.9%) 1,000 mls @ 125 mls/hr IV .Q8H [facility] Last Admin: 07/12/17 23:47 Dose: Admin: 07/12/17 14:43 Dose: Admin: 07/12/17 07:04 Dose: Admin: 07/11/17 23:47 Dose: Infusion: 07/11/17 23:35 Dose: 125 mls/hr Admin: 07/11/17 18:08 Dose: 125 mls/hr Infusion: 07/11/17 18:08 Dose: 0 mls/hr Admin: 07/11/17 09:26 Dose: 125 mls/hr Infusion: 07/11/17 09:26 Dose: 125 mls/hr Admin: 07/11/17 02:31 Dose: 125 mls/hr Infusion: 07/11/17 02:31 Dose: 125 mls/hr Admin: 07/10/17 18:43 Dose: 125 mls/hr Ceftriaxone Sodium 2 gm/ (Dextrose) 50 mls @ 100 mls/hr IV Q24H [facility] Last Admin: 07/12/17 17:31 Dose: 100 mls/hr Infusion: 07/11/17 18:39 Dose: 100 mls/hr Admin: 07/11/17 18:09 Dose: 100 mls/hr Infusion: 07/10/17 19:15 Dose: 0 mls/hr Admin: 07/10/17 18:13 Dose: 100 mls/hr Vancomycin HCl 1,500 mg/ (Sodium Chloride) 500 mls @ 333.3 mls/hr IV Q12H [facility] Last Infusion: 07/12/17 23:48 Dose: 0 mls/hr Admin: 07/12/17 21:53 Dose: 333.3 mls/hr Infusion: 07/12/17 13:50 Dose: 333.3 mls/hr Infusion: 07/12/17 12:20 Dose: 333.3 mls/hr Admin: 07/12/17 10:49 Dose: 333.3 mls/hr Lactulose (Cephulac) 20 gm PO TID [facility] Last Admin: 07/12/17 20:06 Dose: 20 gm Admin: 07/12/17 15:07 Dose: 20 gm Admin: 07/12/17 09:22 Dose: 20 gm Morphine Sulfate (Morphine) 0 mg IV Q1HP PRN PRN Reason: Pain Last Admin: 07/11/17 09:50 Dose: 4 mg Admin: 07/11/17 05:42 Dose: 2 mg Ondansetron HCl (Zofran) 4 mg IV Q4HP PRN PRN Reason: Nausea And Vomiting Last Admin: 07/11/17 23:58 Dose: 4 mg Oxycodone HCl (Roxicodone) 0 mg PO Q4HP PRN PRN Reason: Pain Last Admin: 07/12/17 23:46 Dose: 5 mg Admin: 07/12/17 20:05 Dose: 10 mg Admin: 07/12/17 13:51 Dose: 10 mg Admin: 07/11/17 23:47 Dose: 10 mg Admin: 07/11/17 20:16 Dose: 10 mg Admin: 07/11/17 11:26 Dose: 10 mg Admin: 07/11/17 08:34 Dose: 10 mg Admin: 07/11/17 02:31 Dose: 10 mg Admin: 07/10/17 19:30 Dose: 10 mg Senna (Senokot) 2 tab PO HS [facility] Last Admin: 07/12/17 20:05 Dose: 2 tab Admin: 07/11/17 20:16 Dose: 2 tab Admin: 07/10/17 21:47 Dose: 2 tab Sodium Chloride (Saline Flush) 10 ml IV Q8 [facility] Last Admin: 07/12/17 21:58 Dose: 10 ml Admin: 07/12/17 15:07 Dose: 10 ml Admin: 07/12/17 05:22 Dose: 10 ml Admin: 07/11/17 20:23 Dose: 10 ml Admin: 07/11/17 14:49 Dose: Not Given Admin: 07/11/17 08:28 Dose: 10 ml Admin: 07/10/17 22:50 Dose: 10 ml Zolpidem Tartrate (Ambien) 5 mg PO HSP PRN PRN Reason: Sleep Last Admin: 07/11/17 22:27 Dose: 5 mg Shift Summary 07/13/17 05:15 Shift Summary by Krystian Martines&Briana4. Had one instance of confusion during night when pt awoke saying he was having hallucinating dreams but knew they were not real. PICC to left arm. Dressing changed this shift. Ambulating to BR with FWW and SBA. Uses call light appropriately. C/o nausea and heartburn. 1 loose stool this shift. Oxycodone 2 tabs for pain control. Given for knee pain and headache this shift. Last dose, 1 tab @ 2350. Dressing to right knee changed, covered with aquacel. Knee very edematous and red. Hopes to discharge this morning. Initialized on 07/13/17 05:15 - END OF NOTE
[2017-07-13] MEDS: ASPIRIN 325 MG ENTERIC COATED TABLET PO SCH (10:17)
[2017-07-13] MEDS: LACTULOSE 20 GM/30 ML ORAL.SOL PO SCH (10:17)
[2017-07-13] MEDS: FUROSEMIDE 40 MG TABLET PO SCH (10:17)
[2017-07-13] MEDS: DOCUSATE SODIUM 100 MG CAPSULE PO SCH (10:17)
[2017-07-13] MEDS: 0.9 % SODIUM CHLORIDE 1,000 ML IV SCH (10:18)
[2017-07-13] MEDS: 0.9 % SODIUM CHLORIDE 10 ML SYRINGE IV SCH (10:18)
--- NOTE | 2017-07-13 11:48 | Discharge Summary ---
Medical - DS: Prov Patient information: Note initiated : 07/13/17 at 11:48 am Patient: Jamie Aggarwal 67 y/o M admitted on 07/10/17 for I&D & Rt Polyliner Exchange. Date of admission: 07/10/17 12:01 Discharge date: 07/13/17 Primary care physician: Dr. Vee Mckeon, at [facility] Admitting clinician: Eric Simmons Consults: 07/10/17 Consult to Physician [CONS] Urgent Comment: Consulting Provider: Rafael Barrera Reason For Exam: Physician to Consult Nadir Simmons, orthopedics Pascale Hwang, hospitalist Attending physician on discharge: Eric Simmons Medical - DS: Meds - Discharge Medications Prescriptions: cefTRIAXone [Rocephin] 2 gm IV Q24H #30 vial Escitalopram [Lexapro] 10 mg PO DAILY #30 tab oxyCODONE HCL [Roxicodone] 5 - 10 mg PO Q4HP PRN #60 tab PRN Reason: Pain Vancomycin Per Pharmacy 1 order IV ONCE #40 miscell Active and Home Medications: Discharge medications: Rocephin 2 g IV every 24 hours Vancomycin 1500 mg IV every 12 hours, here at Hospital I believe. Aspirin 325 mg p.o. twice daily for at least 1 month following surgery. Colace 100 mg p.o. twice daily as needed Lexapro 10 mg p.o. daily Lasix 40 mg p.o. daily Increase lactulose to 20 g p.o. 3 times daily Oxycodone 5 mg 1-2 tabs every 4 hours as needed Hydrocodone/APAP 10/325 1-2 every 4 hours as needed Spironolactone 50 mg p.o. daily Ambien 5 mg p.o. nightly as needed MiraLAX 17 g p.o. daily as needed constipation Senokot 2 tabs nightly as needed constipation Previous home Medications: Furosemide [Lasix] 40 mg PO DAILY 06/11/17 [History Confirmed 07/10/17 Last Taken 06/11/17 08:00] Lactulose [Cephulac] 10 gm PO BID 06/11/17 [History Confirmed 07/10/17 Last Taken 06/11/17 12:00] Zolpidem [Ambien] 5 mg PO HSP PRN 06/11/17 [History Confirmed 07/10/17 Last Taken 06/11/17 21:00] Aspirin [Ecotrin] 325 mg PO BID #28 tab.ec 06/13/17 [Rx Confirmed 07/10/17 Last Taken Unknown] HYDROcodone/APAP 10/325MG [[place] 10/325Mg] 1 - 2 tab PO Q4H PRN #90 tablet 06/13 [Rx Confirmed 07/10/17 Last Taken Unknown] Escitalopram 10 mg PO DAILY 07/12/17 [History Confirmed 07/12/17 Last Taken Unknown] Spironolactone [Aldactone] 50 mg PO DAILY 07/12/17 [History Confirmed 07/12/17 Last Taken Unknown] Medical - DS: Hosp Hospital course: Mr. Aggarwal is a 67 year old M July 10, 2017: Medical consultation: Mr. Aggarwal is a 67 year old Male with h/o cirrhosis, liver ca, who has had a right knee washout and explant with antibiotic bead placement after being diagnosed with septic arthritis. Medicine is c onsulted for antibiotic management as well as medical management of medical issues. On my eval patient was post op and confused did not answer much questions, history obtained from chart review. The patient has cirrhosis on aldactone, lasix and lactulose for same. The patient has h/o right TKA in the past, it seems that he had worseing pain in that knee over the last few months, he was seen by Dr Perez and a Knee explant was done with thick tibial insert around 1 month ago. The patient as per history fell and had some dehiscence of the wound. He was given oral antibiotics at that time. (keflex) The patient presented to [facility] on the july with worsening pain in the right leg and swelling and redness with subjective sensation of fever. blood and wound cultures sent. He was advised to continue antibiotics and follow up with Dr Simmons in the clinic. In the clinic the patient was deemed to have septic arthritis with pus coming out of the knee and he was taken to the OR for removal hard arboleda and washout, with antibiotic bead placement. He was noted to be more confused around that time. GIven patients history of cirrhosis and need for antibiotic managemnet, Medicine was consulted for further management. Pt was sleepy , just post op and therefore did not answer much, plan to check ammonia levels. july 11: patient seen examined mental status much better today, lying comfortably in bed, does have some pain in the knee, but otherwise doing well history and home meds reviewed with him Patient takes lacutolose bid, but only has one BM a day, educated the need for 2 -3 BM a day, Await cultures and sensitivities. continue with rocephin and vancomycin for now. Jul 12: Patient seen examined, overnight had some nausea and one episode of vomiting as per patient, nurse notes he was more confused. This am doing well, but still tired no BM yet dose of lactuose increased to 20mg TID, culture neg so far Plan for 6 weeks abx, vanco and rocephin unless microbiology suggests otherwise. if mental status clears, can d/c in AM, ortho cleared for D/C July 13: The patient reportedly did well overnight. He was a little confused during the night, but was clear this morning. Nursing staff reported that he had one loose bowel movement overnight, as he is now on increased dose of lactulose. Bilirubin levels are somewhat improved today. T-max is 99.1, white blood cell count remains normal. Sed rate remains elevated at 41. C-reactive protein also continues elevated. Intraoperative knee cultures are still pending. Blood cultures are negative so far. The patient notes he still having significant discomfort in his right knee. The pain medication seem to take the edge off. He continues to have a fair amount of drainage from the incision. The knee continues swollen. Otherwise he denies fever chills, chest pain or shortness of breath, abdominal pain, nausea or vomiting, dysuria. On physical exam, he is an elderly man in no acute distress. He seems fairly alert. Temperature 98.6, heart rate 57, respiratory rate 18, blood pressure 116/69, O2 saturation 95% on room air Neck shows no obvious JVD. Cardiac exam shows regular rate and rhythm. Lungs are clear to auscultation. Abdomen is soft and nontender. Extremities: Right lower extremity still has marked edema surrounding the knee. The incision is fairly soaked with a pink discharge, prior to the nurses changing it. A/P Narrative: Septic Arthritis Hep C Cirrhosis h/o Liver Ca Anemia #1. Septic arthritis. -He is status post right knee I&D and polyliner exchange, with antibiotic beads implanted. -Cultures are still pending. Continue IV Vanco and rocephin, await sensitivities. He will likely need 4-6 weeks of IV antibiotics. He should have CBC and CMP weekly to be sure he is tolerating these. -Primary care physician may want to have him follow-up with ID as well. -PICC line is in place. I believe he will be following up at the hospital for daily antibiotics. -Follow-up with physical therapy and orthopedics, as per orthotic discharge instructions 2. GI. History of cirrhosis, hepatitis C, previous liver cancer. The patient did have some confusion postop, which may have been mild exacerbation of hepatic encephalopathy, just reaction from medication and anesthesia. He was only having one bowel movement per day, so lactulose was increased to 20 g 3 times daily. -Resume usual diuretics. MELD score is 10 #3. DVT porphylaxis: I believe he is to be on aspirin 325 mg p.o. twice daily, as per ortho. #4. Probably should be on a lower protein hepatic diet. #5. Depression?. We apparently receive some information that the patient is normally on Lexapro, so this was resumed. Follow-up with primary care physician. Patient should have follow-up with his primary care physician, Dr. Vee Mckeon, at [facility]. Discharge diagnosis: Septic right knee, after total knee replacement. Hepatic encephalopathy. Secondary discharge diagnosis: Chronic liver cirrhosis. History of liver cancer. - Time Spent with Patient Total time spent providing and/or coordinating discharge services: Greater than 30 minutes Medical - DS: Exam - Constitutional Vitals: Vital Signs Temp Pulse Resp BP Pulse Ox 07/13/17 08:00 98.3 F 18 118/56 95 07/13/17 04:00 98.0 F 61 16 133/70 93 07/13/17 02:30 93 07/13/17 00:00 99.1 F H 63 16 146/69 95 07/12/17 23:51 97 07/12/17 20:00 98.3 F 63 16 133/73 96 07/12/17 16:55 98.7 F 64 17 132/69 94 07/12/17 12:00 98.7 F 20 124/63 92 Intake and Output 07/12/17 07/13/17 07/13/17 21:59 05:59 13:59 Intake Total 600 / 600 900 / 900 120 / 120 Output Total 200 / 200 330 / 330 225 / 225 Balance 400 / 400 570 / 570 -105 / -105 Intake: IV 500 / 500 Vancomycin 1,500 mg In Sodium 500 / 500 Chloride 0.9% 500 ml @ 333.3 mls/hr IV Q12H [facility] Rx#: [id number] Oral 600 / 600 400 / 400 120 / 120 Output: Void Amount 200 / 200 330 / 330 225 / 225 Other: Meal Dinner Breakfast Percent of Meal Consumed 50% 25% Feeding Ability Independent Independent # Voids 1 1 Weight 280 lb 6.4 oz Medical - DS: Data Labs on day of discharge: Labs from last 24 hours 07/13/17 07/13/17 07/13/17 09:05 04:30 04:30 WBC 7.9 RBC 3.29 L Hgb 11.4 L Hct 32.7 L MCV 99.3 MCH 34.5 H MCHC 34.8 RDW 12.8 Plt Count 149 MPV 8.0 Gran % 76.0 Lymph % (Auto) 8.1 L Reeves % (Auto) 14.6 H Eos % (Auto) 1.1 Baso % (Auto) 0.2 Gran # 6.0 Lymph # (Auto) 0.6 L Reeves # (Auto) 1.1 H Eos # (Auto) 0.1 Baso # (Auto) 0 ESR 41 H Sodium 137 Potassium 4.3 Chloride 99 Carbon Dioxide 27 Anion Gap 11.0 BUN 13 Creatinine 0.6 L GFR Calculation 103 Glucose 96 Uric Acid 2.9 Calcium 9.9 Phosphorus 3.7 Magnesium 1.9 Total Bilirubin 1.3 H Direct Bilirubin 0.4 H GGT 48 AST 28 ALT 20 Alkaline Phosphatase 107 Lactate Dehydrogenase 243 C-Reactive Protein 9.5 H Total Protein 6.4 Albumin 3.1 L Globulin 3.3 Albumin/Globulin Ratio 0.9 L Triglycerides 46 Vancomycin Trough 9.0 H Preliminary micro results at discharge 07/10/17 14:43 Anaerobic Culture - Preliminary Knee - Right Wound Culture - Preliminary 07/10/17 14:43 Anaerobic Culture - Preliminary Knee - Right Wound Culture - Preliminary 07/10/17 14:43 Anaerobic Culture - Preliminary Knee - Right 07/10/17 17:24 Blood Culture - Preliminary Blood 07/10/17 17:15 Blood Culture - Preliminary Blood July 4: Urinalysis: Negative for nitrites and leukocyte esterase. Fairly normal. July 10, blood cultures are negative so far. Intraoperative knee cultures are negative so far July 11: Chest x-ray: PICC line in the region of the left innominate vein. Lungs are clear. Medical - DS: A/P - Patient/Caregiver Discharge Instructions Activity: as per physical therapy, increase activity as tolerated Diet: Low Sodium (2gm) Additional Instructions: Discharge Instructions: Increase lactulose to 20 g 3 times a day, to achieve 2-3 bowel movements per day, to help avoid liver toxicity. Resume home diet as tolerated. Follow up with [facility] on 07/25 at 9:20 am. You will be receiving 2 different IV antibiotics for 6 weeks, twice a day. You received your first dose as an inpatient. Return to [facility], 07/13, at 9:00 pm for your second dose. Do the exercises at home that physical therapy gave you. Start range of motion DENICE with stationary bike or rocking chair.You will have home health for physical therapy. Wear comfortable clothing for your physical therapy. Weight bearing as tolerated. Use your Cryocuff or ice packs as directed, on for 20 minutes at a time throughout the day. This and elevation will help with pain and swelling. You have Silvasorb and Medipore dressing. Change daily for 7 days. If dressing becomes soiled (turns black), remove and replace. After day 7, stop using the Silvasorb gel. Keep incision clean and dry. You may start showering on post op day #2. Follow up with the lab of your choice for blood draws. Get draws done on 07/19 or 07/22. Take attached slip. To avoid constipation while taking any narcotic pain medication, take an over the counter stool softener/laxative. Your prescriptions are with your discharge information. Some medications were electronically transmitted to your pharmacy of choice. Return to ER for uncontrolled pain, unable to go to the bathroom, nausea and/or vomiting, chills, fever, signs of infection, swelling, redness, dizziness, shortness of breath, chest pain. Discharge medications: Rocephin 2 g IV every 24 hours Vancomycin 1500 mg IV every 12 hours, here at Hospital I believe. Aspirin 325 mg p.o. twice daily for at least 1 month following surgery. Colace 100 mg p.o. twice daily as needed Lexapro 10 mg p.o. daily Lasix 40 mg p.o. daily Increase lactulose to 20 g p.o. 3 times daily Oxycodone 5 mg 1-2 tabs every 4 hours as needed Hydrocodone/APAP 10/325 1-2 every 4 hours as needed Spironolactone 50 mg p.o. daily Ambien 5 mg p.o. nightly as needed MiraLAX 17 g p.o. daily as needed constipation Senokot 2 tabs nightly as needed constipation Previous home Medications: Furosemide [Lasix] 40 mg PO DAILY 06/11/17 [History Confirmed 07/10/17 Last Taken 06/11/17 08:00] Lactulose [Cephulac] 10 gm PO BID 06/11/17 [History Confirmed 07/10/17 Last Taken 06/11/17 12:00] Zolpidem [Ambien] 5 mg PO HSP PRN 06/11/17 [History Confirmed 07/10/17 Last Taken 06/11/17 21:00] Aspirin [Ecotrin] 325 mg PO BID #28 tab.ec 06/13/17 [Rx Confirmed 07/10/17 Last Taken Unknown] HYDROcodone/APAP 10/325MG [[place] 10/325Mg] 1 - 2 tab PO Q4H PRN #90 tablet 06/13 [Rx Confirmed 07/10/17 Last Taken Unknown] Escitalopram 10 mg PO DAILY 07/12/17 [History Confirmed 07/12/17 Last Taken Unknown] Spironolactone [Aldactone] 50 mg PO DAILY 07/12/17 [History Confirmed 07/12/17 Last Taken Unknown] Prescriptions: cefTRIAXone [Rocephin] 2 gm IV Q24H #30 vial Escitalopram [Lexapro] 10 mg PO DAILY #30 tab oxyCODONE HCL [Roxicodone] 5 - 10 mg PO Q4HP PRN #60 tab PRN Reason: Pain Vancomycin Per Pharmacy 1 order IV ONCE #40 miscell Other Amb Orders: Physical Therapy at Discharge - TKA Location: Determined By Patient C-Reactive Protein Location: Determined By Patient Complete Blood Count Time Frame: 5 Days, Location: Determined By Patient Comprehensive Metabolic Panel Time Frame: 5 Days, Location: Determined By Patient Erythrocyte Sedimentation Rate Location: Determined By Patient - Follow up Plan Follow up with: Eric Simmons MD [Physician] - 07/25/17 9:20 am ( ) Disposition: Home Health Service Prognosis: Fair Rehab Potential: Fair I certify that the patient requires SNF services: Yes Overall status at discharge: patient is progressing back to baseline Medical - DS: Qual - VTE Deep Vein Thrombosis/Pulmonary Embolism Present on Admission: No
[2017-07-13] MEDS: VANCOMYCIN 1,500 MG in 0.9 % SODIUM CHLORIDE 500 ML IV SCH (12:37)
--- NOTE | 2017-08-13 08:44 | Operative Note ---
DATE OF OPERATION: 07/10/2017 PREOPERATIVE DIAGNOSIS: Right infected total knee arthroplasty, acute. POSTOPERATIVE DIAGNOSIS: Right infected total knee arthroplasty, acute. PROCEDURE PERFORMED: Irrigation and debridement of infected total knee arthroplasty with polyethylene liner exchange, placement of antibiotic beads, and total synovectomy. SURGEON: Eric Simmons M.D. TWISTER FRAME TENDER: Matthew Heller PA-C. ANESTHESIA: General. DRAINS: Medium Hemovac. SPECIMENS: Culture and sensitivity, a deep joint culture and two superficial aspirates, as well as his initial polyethylene insert which was discarded. BLOOD LOSS: 100 mL. COMPLICATIONS: None. POSTOPERATIVE CONDITION: Stable. INDICATIONS FOR SURGERY: This is a 67-year-old male who had undergone a total knee arthroplasty and had ended up falling down. I believe it was about a month after his total knee arthroplasty and dehisced his wound. This was irrigated and debrided and closed about 2 weeks prior. He then started developing increasing swelling and pain, and there was concern for deep prosthetic infection. FINDINGS AT SURGERY: There was fluid tracking from the subcutaneous through the medial arthrotomy into the joint with purulence. PROCEDURE IN DETAIL: The patient had been seen preoperatively. Informed consent had been obtained after discussion of risks and benefits of surgery. Risks including, but not limited to, bleeding, possibly requiring transfusion; infection, continued despite surgical treatment; possibility of further surgery. He understood these risks and wished to proceed. Correct operative site was marked. The patient was taken to the operating room and general anesthesia induced. The right lower extremity was then elevated for a minute, and a time-out was performed verifying patient name, operative site, and plan. Tourniquet was inflated. I used a needle to aspirate superficial fluid collection which did not show a whole lot of fluid, so I went ahead and made a midline incision and opened his previous incision down onto the extensor mechanism. We were then able to palpate a rent in the medial arthrotomy medial to the patella that communicated into the joint and purulence noted, so a deep joint culture was taken. We then opened his prior suture line and removed all suture material. I then removed his previous polyethylene insert. We then proceeded to irrigate preliminarily and then aggressively performed a synovectomy with a rongeur, removing any pseudomembrane. Once we had done an aggressive debridement and complete synovectomy, including the posterior capsule with insert removed, I then filled the joint with a mixture of 50% saline and 50% Betadine. I let this sit in the joint for several minutes and then aggressively pulse lavaged 9000 mL of fluid. Once this was completed, I then opened up a new 13 mm CS size 6 liner and impacted this into place. We had also mixed absorbable antibiotic beads which had vancomycin and tobramycin mixed. These were then placed in the suprapatellar pouch in the gutters. Then looped 0 Maxon was used in interrupted [id number] around the patella, running looped Maxon for the patellar tendon and quad tendon. We did another irrigation and then used 2-0 Monocryl for subcutaneous and placido for skin. We did place a drain out the superolateral pouch prior to closure. This was then hooked to ConstaVac suction. The patient was then awakened, extubated, and transferred to recovery in stable condition. BJB:sage Job ID: [id number] Doc ID: [id number] Eric Simmons MD
== END 2017-07-13 14:30 | disposition home health service (06) | DRG 470 ==
LOC: MEDSUR 12:01 → SUATTDRO 12:01 → MEDSUR 12:16
PROVIDERS: ADMIT Orthopaedic Surgery; ATTEND Internal Medicine

== ENCOUNTER 2017-11-06 11:02 | Inpatient (IN) ==
[2017-11-01 16:11] LABS: Appearance,Urine CLEAR; Bacteria,Urine 0 /hpf (0); Bilirubin,Urine NEG (NEG); Color,Urine AMBER; Glucose,Urine (UA) NEGATIVE (NEG); Leukocyte Esterase,Urine NEG /uL (NEG); Mucus,Urine MOD /hpf (0); Protein,Urine NEG (NEG); Specific Gravity,Urine 1.026 (1.000-1.035); Urine Blood 0.03 mg/dL (<0.03); Urine RBC 1 /hpf (0-1); Urine Squamous Epithelial Cell 0 /hpf (0-4); Urine WBC 1 /hpf (0-4)
[2017-11-01 20:38] LABS: Blood Urea Nitrogen 9 mg/dl (8-23); C-Reactive Protein 5.2 mg/dl (0.0-0.8)
[2017-11-01 21:02] LABS: Basophils # (Auto) 0 K/mcL (0.0-0.3); Basophils % (Auto) 0.3 % (0.0-2.0); Eosinophils # (Auto) 0.2 K/mcL (0.0-0.7); Eosinophils % (Auto) 3.6 % (0.0-7.0); Granulocytes % (Auto) 65.8 % (38.0-78.0); Lymphocytes # (Auto) 0.7 K/mcL (1.5-4.8); Lymphocytes % (Auto) 14.2 % (15.5-49.0); Mean Cell Volume 91.3 fL (80.0-100.0); Mean Corpuscular HGB Conc 34.6 g/dL (31.0-36.0); Mean Corpuscular Hemoglobin 31.6 pg (26.0-34.0); Monocytes # (Auto) 0.8 K/mcL (0.1-0.9); Monocytes % (Auto) 16.1 % (1.0-12.0); Platelet Count 188 K/mcL (140-440); RBC 3.46 M/mcL (4.50-5.90); Red Cell Distribution Width 15.5 % (11.5-14.5)
[~2017-11-06 11:02] MED LIST changes: -KETOROLAC 30 MG, ROPIVACAINE HCL/PF 49.5 ML, EPINEPHrine 0.5 MG, 0.9 % SODIUM CHLORIDE ... IJ SCH
[2017-11-06] MEDS ORDERED: MIDAZOLAM 2 MG/2 ML VIAL IV ONE (15:35)
[2017-11-06] MEDS ORDERED: LIDOCAINE HCL/PF 100 MG/5 ML SYRINGE IV ONE (15:35)
[2017-11-06] MEDS ORDERED: DEXAMETHASONE 10 MG/ML VIAL IV ONE (15:35)
[2017-11-06] MEDS ORDERED: PHENYLEPHRINE 10 MG/ML VIAL IV ONE (15:35)
[2017-11-06] MEDS ORDERED: ONDANSETRON 4 MG/2 ML VIAL IV ONE (15:35)
[2017-11-06] MEDS ORDERED: BUPIVACAINE W/EPI 0.5% 50 ML VIAL IJ ONE (15:35)
[2017-11-06] MEDS ORDERED: KETAMINE 100 MG/ML ML IV ONE (15:35)
[2017-11-06] MEDS ORDERED: fentaNYL 100 MCG/2 ML VIAL IV ONE (15:35)
[2017-11-06] MEDS ORDERED: GLYCOPYRROLATE 0.2 MG/ML VIAL IV ONE (15:35)
[2017-11-06] MEDS ORDERED: TRANEXAMIC ACID 1,000 MG/10 ML VIAL IV ONE ×2 (15:35→17:31)
[2017-11-06] MEDS ORDERED: PROPOFOL 200 MG/20 ML VIAL IV ONE (15:35)
[2017-11-06] MEDS ORDERED: ePHEDrine 50 MG/ML AMPUL IV ONE (15:35)
[2017-11-06] MEDS ORDERED: TOBRAMYCIN SULFATE 1.2 GM VIAL TOPICAL ONE (16:11)
[2017-11-06] MEDS ORDERED: VANCOMYCIN 1 GM VIAL TOPICAL SCH (16:15)
[2017-11-06] MEDS ORDERED: IPRATROPIUM/ALBUTEROL 3 ML AMPUL.NEB NEB PRN (17:14)
[2017-11-06] MEDS ORDERED: ONDANSETRON 4 MG/2 ML VIAL IV PRN ×2 (17:14→17:31)
[2017-11-06] MEDS ORDERED: ACETAMINOPHEN 1,000 MG/100 ML BOTTLE IV ONE (17:14)
[2017-11-06] MEDS ORDERED: NALOXONE HCL 0.4 MG/ML VIAL IV PRN (17:14)
[2017-11-06] MEDS ORDERED: PROMETHAZINE 25 MG/ML VIAL IV PRN (17:14)
[2017-11-06] MEDS ORDERED: LACTATED RINGERS 250 ML IV PRN (17:14)
[2017-11-06] MEDS ORDERED: FLUMAZENIL 0.1 MG/ML ML IV PRN (17:14)
[2017-11-06] MEDS ORDERED: BENZOCAINE/MENTHOL 1 LOZENGE PO PRN ×2 (17:14→17:31)
[2017-11-06] MEDS ORDERED: METHOCARBAMOL 1,000 MG/10 ML VIAL IV PRN (17:14)
[2017-11-06] MEDS ORDERED: LACTATED RINGERS 1,000 ML IV SCH (17:15)
--- NOTE | 2017-11-06 17:21 | Brief Operative Note ---
Date of procedure: 11/06/17 Pre-op diagnosis: Infected R total knee arthroplasty Post-op diagnosis: same Procedure: Removal of infected total knee arthroplasty and placement of articulating antibiotic spacer Grafts/Implants: Yes (Depuy Attune 8 CR femur, 8mm tibial insert) Anesthesia: spinal, GLMA Findings: gross purulence Complications: none Surgeon: Eric Simmons Stock Hanger: Allegra Bruno Specimens Removed/Pathology: other (c&s x 2, gram stain x 2) Condition: stable Disposition: PACU
[2017-11-06] MEDS ORDERED: POLYETHYLENE GLYCOL 3350 17 GM PACKET PO PRN ×2 (17:31→17:36)
[2017-11-06] MEDS ORDERED: MAGNESIUM HYDROXIDE 30 ML ORAL.SUSP PO PRN (17:31)
[2017-11-06] MEDS ORDERED: DEXTROSE 31 GM ORAL.SUSP PO PRN (17:31)
[2017-11-06] MEDS ORDERED: BISACODYL 10 MG SUPP.RECT PR PRN (17:31)
[2017-11-06] MEDS ORDERED: DEXTROSE 50% 50 ML VIAL IV PRN (17:31)
[2017-11-06] MEDS ORDERED: FLEETS ADULT ENEMA PR PRN (17:31)
[2017-11-06] MEDS: fentaNYL 100 MCG/2 ML VIAL IV PRN ×2 (18:30→18:32)
[2017-11-06] MEDS: 0.9 % SODIUM CHLORIDE 1,000 ML IV SCH (18:52)
[2017-11-06] MEDS: HYDROmorphone 2 MG/ML VIAL IV PRN (19:14)
[2017-11-06] MEDS: SENNOSIDES 1 TABLET PO SCH (20:40)
[2017-11-06] MEDS: LACTULOSE 20 GM/30 ML ORAL.SOL PO SCH (20:40)
[2017-11-06] MEDS: VANCOMYCIN 1,500 MG in 0.9 % SODIUM CHLORIDE 500 ML IV SCH (20:40)
[2017-11-06] MEDS: DOCUSATE SODIUM 100 MG CAPSULE PO SCH (20:41)
[2017-11-06] MEDS: WARFARIN 5 MG TABLET PO SCH (20:41)
[2017-11-06] MEDS: HYDROcodone/APAP 10/325MG TABLET PO PRN (20:41)
[2017-11-06] MEDS: INSULIN LISPRO 1 UNIT/0.01 ML UNIT SQ SCH (20:55)
[2017-11-06] MEDS ORDERED: VANCOMYCIN PER PHARMACY IV SCH (21:00)
[2017-11-06] MEDS: 0.9 % SODIUM CHLORIDE 10 ML SYRINGE IV SCH (22:15)
[2017-11-07] MEDS: HYDROcodone/APAP 10/325MG TABLET PO PRN ×4 (01:08→21:09)
[2017-11-07] MEDS: HYDROmorphone 2 MG/ML VIAL IV PRN ×2 (03:45→15:28)
[2017-11-07] MEDS: 0.9 % SODIUM CHLORIDE 10 ML SYRINGE IV SCH ×3 (04:15→21:12)
[2017-11-07 06:38] LABS: Basophils # (Auto) 0 K/mcL (0.0-0.3); Basophils % (Auto) 0 % (0.0-2.0); Eosinophils # (Auto) 0.2 K/mcL (0.0-0.7); Eosinophils % (Auto) 2.8 % (0.0-7.0); Granulocytes % (Auto) 89.1 % (38.0-78.0); Lymphocytes # (Auto) 0.3 K/mcL (1.5-4.8); Lymphocytes % (Auto) 3.8 % (15.5-49.0); Mean Cell Volume 90.8 fL (80.0-100.0); Mean Corpuscular HGB Conc 34.6 g/dL (31.0-36.0); Mean Corpuscular Hemoglobin 31.4 pg (26.0-34.0); Monocytes # (Auto) 0.3 K/mcL (0.1-0.9); Monocytes % (Auto) 4.3 % (1.0-12.0); Platelet Count 177 K/mcL (140-440); RBC 3.26 M/mcL (4.50-5.90); Red Cell Distribution Width 15.9 % (11.5-14.5)
[2017-11-07] MEDS: INSULIN LISPRO 1 UNIT/0.01 ML UNIT SQ SCH ×4 (07:03→21:01)
[2017-11-07] MEDS: 0.9 % SODIUM CHLORIDE 1,000 ML IV SCH ×3 (07:06→19:07)
--- NOTE | 2017-11-07 08:25 | XRay Report ---
HISTORY: Reason for Exam:Post-Op Total Knee FINDINGS: The knee prosthesis has been revised since 07/10/17. The prosthetic tibial plateau has been replaced with a radiolucent prosthesis. There is radiopaque cement between this prosthesis and the bone. There is also dense radiopaque material within the joint space between the patella and femur, extending into the suprapatellar bursa. Numerous radiopaque pellets are again seen throughout the joint. No fracture is present. There is no bone erosion. IMPRESSION: Well-positioned revised knee prosthesis Interpreted and Authenticated by: Leroy Thornton 11/07/17
--- NOTE | 2017-11-07 08:35 | Operative Note ---
DATE OF OPERATION: 11/06/2017 PREOPERATIVE DIAGNOSIS: Infected right total knee arthroplasty. POSTOPERATIVE DIAGNOSIS: Infected right total knee arthroplasty. PROCEDURES PERFORMED: Irrigation and debridement of infected right total knee arthroplasty with removal of the knee implant and placement of an articulating antibiotic spacer. SURGEON: Eric Simmons M.D. [employer] SUPERVISOR: Allegra Bruno PA-C. ANESTHESIA: Spinal plus general. DRAINS: Medium Hemovac. SPECIMENS: Culture and sensitivity x2, as well as the removed total knee arthroplasty components. BLOOD LOSS: 50 mL. COMPLICATIONS: None. POSTOPERATIVE CONDITION: Stable. INDICATIONS FOR SURGERY: This is a 67-year-old male who several years ago underwent a total knee arthroplasty. He did not do well from the initial surgery, and it was identified that he had some instability. His infection workup at that time was negative. He did not wish to live with his symptoms as they currently were so elected to proceed with a revision of the knee with placement of a thicker tibial insert. He is very pleased with that surgery, and several weeks after surgery was out working on his deck and fell down, striking his knee and dehiscing the wound. He was brought in and washed out and closed. However, he subsequently developed an infection, so we attempted a polyethylene exchange with I and D and prolonged IV antibiotics. He then stopped the IV antibiotics and had increasing pain and swelling with a rising CRP. FINDINGS AT SURGERY: There was willam pus within the joint. PROCEDURE IN DETAIL: The patient had been seen preoperatively. Informed consent had been obtained after discussion of risks and benefits of surgery. Risks including, but not limited to, bleeding; continued infection; injury to nerves, blood vessels, and other surrounding structures; anesthetic risks; continued pain, infection, instability; DVT and pulmonary embolus risks; the need for further revision surgery; possibility of eventually ending up in an amputation. He understood these risks and wished to proceed. Correct operative site was marked and then patient was taken to the operating room and general anesthesia induced. He did receive spinal in preop holding. He was then positioned on the table and then the right lower extremity was carefully prepped and draped in normal sterile fashion, and a time-out was performed verifying patient name, operative site, and plan. A knife was used through skin using a midline incision. We then continued carefully sharply dissecting through dense scar tissue. We then sharply made medial and lateral flaps. We did identify our prior suture line. We then made a medial parapatellar arthrotomy and noted immediate pus which was cultured with a culture swab x2. We then removed some scar tissue behind the patellar tendon. The patella was making our exposure difficult, so we went ahead and used an oscillating saw underneath the patella and amputated the patellar component. We then used a small drill to remove the three pegs. We then used a flexible osteotome to get underneath the cement layer and removed most of the cement off the patella. At this point we did note there was pus between the cement layer and within the bone. We went ahead and then exposed the femoral component. Flexible osteotomes were used and then used the mallet to knock this off of the femur. It did take bone with it. We then exposed the tibia and flexible osteotome was used around it as much as possible and then a fishmouth was used to remove the tibia. Again, there was purulence down into the bone. We used osteotomes and then graspers to remove the cement from the tibia. We then checked our femoral component and he sized to a size 8 Attune which was opened. We chose a size 8 mm thick stemmed tibial insert. We then did an aggressive multi-compartment synovectomy using a rongeur of the suprapatellar pouch, medial and lateral gutters and the posterior capsule. Once this was completed, we then filled the joint with his leg in extension with 50% saline and 50% Betadine. We let this sit for 5 minutes and then pulse lavaged with 3000 mL of saline. We then had antibiotic beads already made and we also mixed two bottles of tobramycin and two bottles of vancomycin with a single [place] cement mix. Cement was mixed and then we allowed the cancellous bone surfaces to get blood covering them and then we placed the doughy cement on the tibia and then placed our tibial component. We then cemented the femur and femoral component. This was impacted and the knee was taken into extension. Excess cement removed. We then also made a small disk with the antibiotic cement to place in the suprapatellar pouch. Once the cement had hardened, we placed the disk in the suprapatellar pouch as well as our antibiotic beads. We used a looped Maxon running stitch, one starting distal running to mid-patella, the second one starting proximal and running to mid-patella. We then irrigated some more with pulse lavage after irrigating with Irrisept. Then 2-0 Monocryl for subcutaneous and placido for skin. We did place a drain prior to closure. A large Hemovac out the superolateral pouch. Xeroform and sterile dressing were applied and the suction was hooked to a ConstaVac reservoir. We then released the tourniquet. The patient was then awakened, extubated, and transferred to recovery in stable condition after being placed in a hinged knee ranger. ALEX:sage Job ID: [id number] Doc ID: [id number] Eric Simmons MD
[2017-11-07] MEDS: ESCITALOPRAM 10 MG TABLET PO SCH (08:59)
[2017-11-07] MEDS: FUROSEMIDE 40 MG TABLET PO SCH (08:59)
[2017-11-07] MEDS: DOCUSATE SODIUM 100 MG CAPSULE PO SCH ×2 (08:59→21:09)
[2017-11-07] MEDS: LACTULOSE 20 GM/30 ML ORAL.SOL PO SCH ×3 (08:59→21:08)
[2017-11-07] MEDS: VANCOMYCIN 1,500 MG in 0.9 % SODIUM CHLORIDE 500 ML IV SCH ×2 (08:59→21:09)
[2017-11-07] MEDS: SPIRONOLACTONE 25 MG TABLET PO SCH (08:59)
[2017-11-07] MEDS ORDERED: ESCITALOPRAM 10 MG TABLET PO SCH (09:00)
--- NOTE | 2017-11-07 12:00 | Orthopedic Progress Note ---
Subjective Patient information: Note initiated : 11/07/17 at 11:56 am Service Date, if different from initiated Date: [] Patient: Jamie Aggarwal 67 y/o M admitted on 11/06/17 for Right Knee, Removal of Total Knee, I&D . Chief Complaint: [] Principal diagnosis: infected TKA Interval history: pain is significant Objective Vital signs: Vital Signs Temp Pulse Resp BP Pulse Ox 11/07/17 06:58 98.2 F 20 145/68 97 11/07/17 04:00 97.6 F 70 16 118/61 96 11/07/17 00:30 95 11/07/17 00:00 97.7 F 73 16 126/72 97 11/06/17 22:35 93 11/06/17 21:48 97.8 F 67 18 124/68 97 11/06/17 20:48 90 145/81 97 11/06/17 20:20 95 H 173/79 95 11/06/17 19:48 86 150/83 94 11/06/17 19:34 79 142/64 91 11/06/17 19:19 88 140/76 100 11/06/17 19:03 93 H 159/94 93 11/06/17 19:00 98 11/06/17 18:48 97.6 F 91 H 18 175/79 98 11/06/17 18:40 97.9 F 89 15 139/72 98 11/06/17 18:35 86 15 148/86 99 11/06/17 18:20 91 H 15 164/78 99 11/06/17 18:15 90 16 154/86 97 11/06/17 18:10 86 17 164/86 99 11/06/17 18:05 87 16 147/84 99 11/06/17 18:00 88 18 163/82 100 11/06/17 17:55 81 15 149/75 99 11/06/17 17:50 97.8 F 82 12 138/78 100 Intake and Output 11/06/17 11/07/17 11/07/17 21:59 05:59 13:59 Intake Total 1890 / 1890 2480 / 2480 240 / 240 Output Total 1305 / 1305 766 / 766 200 / 200 Balance 585 / 585 1714 / 1714 40 / 40 Intake: IV 1800 / 1800 1500 / 1500 Sodium Chloride 0.9% 1,000 ml @ 1000 / 1000 100 mls/hr IV .Q10H RICHARD Rx#: [id number] Vancomycin 1,500 mg In Sodium 500 / 500 Chloride 0.9% 500 ml @ 333.3 mls/hr IV Q12H RICHARD Rx#: [id number] Oral 90 / 90 980 / 980 240 / 240 Output: Drainage 280 / 280 140 / 140 Right Knee 280 / 280 140 / 140 Void Amount 925 / 925 625 / 625 200 / 200 Straight 550 / 550 # of times incontinent of urine 1 Estimated Blood Loss 100 / 100 Other: Meal jello & 2x chees sticks Soup & 3x cracker pks Breakfast Percent of Meal Consumed 100% 100% 75% Feeding Ability Independent Independent # Voids 1 1 1 Weight 171 lb 8 oz Intake & Output: Intake & Output 11/06/17 11/07/17 11/07/17 21:59 05:59 13:59 Intake Total 1890 / 1890 2480 / 2480 240 / 240 Output Total 1305 / 1305 766 / 766 200 / 200 Balance 585 / 585 1714 / 1714 40 / 40 Weight 171 lb 8 oz Intake: IV 1800 / 1800 1500 / 1500 Sodium Chloride 0.9% 1,000 ml @ 1000 / 1000 100 mls/hr IV .Q10H RICHARD Rx#: [id number] Vancomycin 1,500 mg In Sodium 500 / 500 Chloride 0.9% 500 ml @ 333.3 mls/hr IV Q12H RICHARD Rx#: [id number] Oral 90 / 90 980 / 980 240 / 240 Output: Drainage 280 / 280 140 / 140 Right Knee 280 / 280 140 / 140 Void Amount 925 / 925 625 / 625 200 / 200 Straight 550 / 550 # of times incontinent of urine 1 / Estimated Blood Loss 100 / 100 Other: Meal jello & 2x chees sticks Soup & 3x cracker pks Breakfast Percent of Meal Consumed 100% 100% 75% Feeding Ability Independent Independent # Voids 1 1 1 Dressing: Yes clean, Yes dry, Yes intact Neurological exam IM: Yes alert, Yes oriented X3 - Labs CBC & BMP: 11/07/17 05:03 11/01/17 14:09 Labs: Orthopedic Labs 11/07/17 05:03 PT 16.2 H INR 1.3 H 11/07/17 11/01/17 05:03 14:10 Hgb 10.2 L 10.9 L Hct 29.6 L 31.6 L Assessment and Plan (1) Infection of total knee replacement POD#1 s/p removal of infected TKA-stable, gram stain neg, afebrile -IV abx, pull drain today -consult hospitalist -plan Snf placement Status: Acute
[2017-11-07] MEDS: WARFARIN 5 MG TABLET PO SCH (13:53)
--- NOTE | 2017-11-07 20:21 | Internal Medicine Consult Note ---
Medical - CN: HPI - Data of Consult Consult date: 11/07/17 Requesting Physician: Eric Simmons Primary Care Provider: Vee Levine MD - Consult Narrative Reason for consult: Medical management of infected total knee arthroplasty History of present illness: Mr. Aggarwal is a 67 year old M with a history of hepatitis C, cirrhosis from above, osteoarthritis with prior right total knee replacement. History is obtained in speaking with the patient, speaking with Dr. Simmons and reviewing the medical record. Patient had a right total knee arthroplasty approximately 3 years ago. He subsequently had revision for instability, and underwent revision with liner exchange on June 12, 2017. He tolerated the procedure well, intraoperative cultures were without growth. He did well initially, however he presented to [facility] on July 09 with complaints of surgical wound becoming red hot and swollen for 3-4 days. Apparently he had been working on a porch and had dehiscence of the wound. He had purulent drainage from the wound, and on July 10 he underwent irrigation debridement and had liner exchange and placement of antibiotic beads. Purulence extended into the wound at that time. Cultures were notable for eventual growth of Staphylococcus saccharolyticus on 1 of 3 anaerobic cultures, finalizing on July 20. All other aerobic and anaerobic cultures remained no growth. At that time he was started on vancomycin and ceftriaxone. He was eventually discharged from the hospital on July 13, and completed a 6 week course of antibiotics on August 24. Appears he received vancomycin and ceftriaxone (according to internal medicine discharge summary, which was done following the orthopedic discharge summary). Patient states he did well initially, however then noted that he was having difficulty walking upstairs, apparently from pain in the knee. He also developed swelling of the knee. This occurred before [place]. His symptoms continued to progress, particularly the swelling. Because of this, he presented to Dr. Simmons's office, who took him to the OR yesterday for incision and drainage. There is purulent material in the joint. He had removal of the hardware, a new femoral component and tibial component with antibiotics cementation antibiotic beads to allow weight bearing. Cultures were done intraoperatively. In addition to the patient's symptoms, inflammatory markers have worsened with a sedimentation rate of 65 and CRP of 8.0. Patient states he had a low-grade fever during that [place] [address] [place]. Occasionally have chills. He had no nausea, no vomiting, no abdominal pain. He has chronic loose stools secondary to lactulose therapy for cirrhosis. Noted no rashes, no headache, no vision changes, no sore throat , no cough, no sputum production, no dyspnea, no chest pain. 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 Surgical history: Right TKA with revision 06/23 Amputation right index finger Pertinent family history: Dad with cad Mother with osteoporosis and DM Son of pancreatic cancer 08/2017 Social history: Ex smoker, uses smokeless tobacco No alcohol use Medical - CN: Meds Home Medications Medication Instructions Recorded Confirmed Type Furosemide [Lasix] 40 mg PO DAILY 06/11/17 11/06/17 History Aspirin [Ecotrin] 325 mg PO BID #28 tab.ec 06/13/17 11/06/17 Rx HYDROcodone/APAP 10/325MG [Cedar 1 - 2 tab PO Q4H PRN #90 tablet 06/13/17 Rx 10/325Mg] Escitalopram 10 mg PO DAILY 07/12/17 11/06/17 History oxyCODONE HCL [Roxicodone] 5 - 10 mg PO Q4HP PRN #60 tab 07/12/17 11/06/17 Rx Escitalopram [Lexapro] 10 mg PO DAILY #30 tab 07/13/17 11/06/17 Rx Lactulose [Cephulac] 20 gm PO TID oral.shaheed 07/13/17 11/06/17 Rx Polyethylene Glycol 3350 [Miralax] 17 gm PO DAILYP PRN packet 07/13/17 Rx Spironolactone [Aldactone] 50 mg PO DAILY tablet 07/13/17 11/06/17 Rx Allergies Allergy/AdvReac Type Severity Reaction Status Date / Time No Known Drug Allergies Allergy Verified 11/01/17 13:44 Medical - CN: Exam - Constitutional Vitals: Temp Pulse Resp BP Pulse Ox 99.2 F H 70 18 123/66 95 11/07/17 16:00 11/07/17 04:00 11/07/17 16:00 11/07/17 16:00 11/07/17 16:00 Exam: General: Alert, in no acute distress HEENT: Normocephalic. Pupils are equally round and reactive to light. Sclera are anicteric. No conjunctival injection. Oropharynx is with moist mucous membranes, no lip or gum lesions. Tongue is midline. Neck: Supple, no meningismus. No thyromegaly. Chest: Clear to auscultation bilaterally with no rales or wheezes. No accessory muscle use. Cardiovascular: Regular rate and rhythm without murmur gallop or rub. Carotid pulses are 2+ without bruit. There is no lower extremity edema. JVP is normal. Abdomen: Soft, mildly distended, nontender, no guarding or rebound. Bowel sounds active. No hepatosplenomegaly. Lymphatic: No cervical or supraclavicular lymphadenopathy. Skin: Warm, dry. Skin turgor is normal Musculoskeletal: Right leg in knee brace, drain in place, leg/thigh wrapped in dressings. NVI. Strength 5/5 in upper and left lower extremities. Digits without cyanosis or clubbing. Right index finger s/p amputation. Neuro: Alert, oriented X3. Cranial nerves II through XII grossly intact. Sensation intact to light touch. DTR 2+ in the upper and lower extremity. No asterixis Psychiatric: Affect and orientation are normal. Medical - CN: Result - Labs CBC & Chem 7: 11/07/17 05:03 11/01/17 14:09 Labs: Short CBC 11/07/17 Range/Units 05:03 WBC 8.0 (4.5-11.0) K/mcL Hgb 10.2 L (13.5-16.5) g/dL Hct 29.6 L (41.0-55.0) % Plt Count 177 (140-440) K/mcL Microbiology 11/06/17 18:17 Fungal Smear - Final Knee - Right 11/06/17 18:18 Fungal Smear - Final Knee - Right 11/06/17 18:17 Gram Stain - Final Knee - Right Gram Stain - Final Anaerobic Culture - Preliminary Gram Stain - Final Wound Culture - Preliminary 11/06/17 18:18 Gram Stain - Final Knee - Right Gram Stain - Final Anaerobic Culture - Preliminary Gram Stain - Final Wound Culture - Preliminary No growth to date. July 10, 2017: Synovial fluid culture without growth. Three further intra- op knee cultures without aerobic growth; one of the 3 anaerobic cultures grew Staphylococcus saccharolyticus. Medical - CN: A/P (1) Infection of total knee replacement Status: Acute - Narrative A/P Narrative: 67-year-old male with a history of cirrhosis, osteoarthritis, status post right total knee arthroplasty with revision and subsequent infection of revised prosthesis (liner was exchanged) and wound. Now with recurrent infection. Infected right total knee arthroplasty. Recurrent infection, now status post hardware removal with further antibiotic bead placement. New components to allow weightbearing have been placed with antibiotic impregnated cement. Suspect this was a recurrent deep infection rather than new infection that entered the joint space superficially (original infected joint was from wound dehiscence and infection). Only bacterium cultured was an anaerobic coag- negative staphylococcus species from one culture. Some anaerobic staphylococcus species have been reported to cause infection. As this came from a deep culture, could represent a pathogen. I am unaware of how easily this can be cultured, though it is possible that with a low inoculum only one of 3 cultures was positive. For staphylococcus vancomycin should have provided appropriate antibiotic coverage. It is possible that antibiotic tissue penetration deeper into the joint was inadequate to fully eradicate the infection (but clinical response suggest adequate coverage initially). I would' ve expected a significant infection back in July with Staphylococcus aureus or streptococcus to have grown on at least one intraoperative culture. 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 Currently compensated no evidence of encephalopathy. Plan: Continue with lactulose. Will continue to follow
[2017-11-07] MEDS: SENNOSIDES 1 TABLET PO SCH (21:08)
[2017-11-07] MEDS ORDERED: CLINDAMYCIN 600 MG/4 ML VIAL ONE (22:27)
[2017-11-07] MEDS: CLINDAMYCIN 600 MG in DEXTROSE 5% IN WATER 50 ML IV SCH (22:53)
[2017-11-08] MEDS: 0.9 % SODIUM CHLORIDE 1,000 ML IV SCH ×3 (01:26→20:23)
[2017-11-08] MEDS: HYDROcodone/APAP 10/325MG TABLET PO PRN ×4 (01:30→15:22)
[2017-11-08] MEDS ORDERED: CLINDAMYCIN 600 MG/4 ML VIAL ONE (05:01)
[2017-11-08] MEDS: CLINDAMYCIN 600 MG in DEXTROSE 5% IN WATER 50 ML IV SCH (05:28)
[2017-11-08] MEDS: INSULIN LISPRO 1 UNIT/0.01 ML UNIT SQ SCH ×4 (07:52→21:32)
[2017-11-08] MEDS: SPIRONOLACTONE 25 MG TABLET PO SCH (09:18)
[2017-11-08] MEDS: ESCITALOPRAM 10 MG TABLET PO SCH (09:19)
[2017-11-08] MEDS: DOCUSATE SODIUM 100 MG CAPSULE PO SCH ×2 (09:19→21:37)
[2017-11-08] MEDS: FUROSEMIDE 40 MG TABLET PO SCH (09:20)
[2017-11-08] MEDS: LACTULOSE 20 GM/30 ML ORAL.SOL PO SCH ×3 (09:20→21:36)
[2017-11-08] MEDS: 0.9 % SODIUM CHLORIDE 10 ML SYRINGE IV SCH ×2 (09:50→21:20)
--- NOTE | 2017-11-08 10:49 | Discharge Summary ---
Providers - Providers Patient information: Note initiated : 11/08/17 at 10:45 am Service Date, if different from initiated Date: [11/09/17] Patient: Jamie Aggarwal 67 y/o M admitted on 11/06/17 for Right Knee, Removal of Total Knee, I&D . Chief Complaint: [] Date of admission: 11/06/17 Discharge date: 11/09/17 Attending physician: Eric Simmons Hospitalist consultation for infectious disease consultation/medical comanagement Hospitalization Hospital course: Patient was taken for removal of infected prosthesis, he then was admitted postoperatively for IV abx and pain control. Hospitalist was consulted for infectious disease consultation and antibiotic recommendations and medical management. Discharge diagnosis: infected right total knee arthroplasty Reason for admission: increasing knee swelling and pain Procedures: Removal of infected total knee arthroplasty with placement of antibiotic spacer Pertinent studies/significant findings: he had elevated esr of 60's and crp 8 Exam - Exam Weight bearing status: as tolerated (with brace) Ortho Discharge - TKA - Patient Instructions Diet: Consistent Carbohydrate Activity: weight bearing as tolerated Total Knee Protocol: Apply Cryocuff as instructed. Dressing Care: Silvasorb gel & gauze - change daily Patient Education: Hardware Removal (DC), Incision and Drainage (DC) - Problem Maintenance (1) Infection of total knee replacement Status: Acute - Follow Up Plan Follow Up Appointments: Vee Levine MD [Primary Care Provider] - (It has been recommended by Anesthesia to follow up with your Primary Care doctor concerning your lab work. They have been faxed to your doctor. Call to set up an appointment.) Bala Heller PA-C [Physician [employer]] - 11/21/17 1:40 pm Disposition: Xfer SNF Prognosis: Fair Rehab Potential: Fair - Orders For Discharge Prescriptions: HYDROcodone/APAP 10/325MG [[place] 10/325Mg] 1 - 2 tab PO Q4H PRN #120 tab PRN Reason: Pain Warfarin [Coumadin] 4 mg PO DAILY #90 tab Additional Discharge Orders: OT Discharge Order Location: Determined By Patient Physical Therapy at Discharge - TKA Location: Determined By Patient Outpatient PICC Care Location: Determined By Patient Toilet Riser Discharge Order Location: Determined By Patient Walker Location: Determined By Patient Pending Studies Resuscitation Status Full Code Diet Consistent Carbohydrate Diet Start SatNov 06 Dinner Hydrocodone Bitart/Acetaminophen ([place] 10/325mg) 0 tab PO Q4HP PRN PRN Reason: PAIN LEVEL 3-6 Last Admin: 11/08/17 09:47 Dose: 2 tab Admin: 11/08/17 05:29 Dose: 2 tab Admin: 11/08/17 01:30 Dose: 2 tab Admin: 11/07/17 21:09 Dose: 2 tab Admin: 11/07/17 12:50 Dose: 2 tab Admin: 11/07/17 05:51 Dose: 2 tab Admin: 11/07/17 01:08 Dose: 2 tab Admin: 11/06/17 20:41 Dose: 2 tab Diagnostic Test (Pha) (Accu-Chek) 1 each FS ACHS [facility] Last Admin: 11/08/17 07:52 Dose: 1 each Admin: 11/07/17 21:00 Dose: 1 each Admin: 11/07/17 17:36 Dose: 1 each Admin: 11/07/17 11:12 Dose: 1 each Admin: 11/07/17 07:03 Dose: 1 each Admin: 11/06/17 20:51 Dose: 1 each Docusate Sodium (Colace) 100 mg PO BID [facility] Last Admin: 11/08/17 09:19 Dose: 100 mg Admin: 11/07/17 21:09 Dose: 100 mg Admin: 11/07/17 08:59 Dose: 100 mg Admin: 11/06/17 20:41 Dose: 100 mg Escitalopram Oxalate (Lexapro) 10 mg PO DAILY [facility] Last Admin: 11/08/17 09:19 Dose: 10 mg Admin: 11/07/17 08:59 Dose: 10 mg Furosemide (Lasix) 40 mg PO DAILY [facility] Last Admin: 11/08/17 09:20 Dose: 40 mg Admin: 11/07/17 08:59 Dose: 40 mg Heparin Sodium (Porcine) (Heparin Flush) 2 ml IV Q12 [facility] Last Admin: 11/08/17 09:50 Dose: Admin: 11/07/17 21:12 Dose: Admin: 11/07/17 09:00 Dose: Hydromorphone HCl (Dilaudid) 0 mg IV Q2HP PRN PRN Reason: PAIN LEVEL > 6 Last Admin: 11/07/17 15:28 Dose: 1 mg Admin: 11/07/17 03:45 Dose: 1 mg Admin: 11/06/17 19:14 Dose: 1 mg Sodium Chloride (Sodium Chloride 0.9%) 1,000 mls @ 100 mls/hr IV .Q10H [facility] Last Admin: 11/08/17 09:50 Dose: Admin: 11/08/17 01:26 Dose: Infusion: 11/08/17 01:24 Dose: 100 mls/hr Admin: 11/07/17 19:07 Dose: 100 mls/hr Infusion: 11/07/17 17:06 Dose: 100 mls/hr Admin: 11/07/17 12:51 Dose: Not Given Admin: 11/07/17 07:06 Dose: 100 mls/hr Infusion: 11/07/17 04:52 Dose: 100 mls/hr Admin: 11/06/17 18:52 Dose: 100 mls/hr Vancomycin HCl 1,500 mg/ (Sodium Chloride) 500 mls @ 333.3 mls/hr IV Q12H [facility] Last Infusion: 11/08/17 01:23 Dose: 333.3 mls/hr Admin: 11/07/17 21:09 Dose: 333 mls/hr Infusion: 11/07/17 10:30 Dose: 0 mls/hr Admin: 11/07/17 08:59 Dose: 333.3 mls/hr Infusion: 11/06/17 22:11 Dose: 333.3 mls/hr Admin: 11/06/17 20:40 Dose: 333.3 mls/hr Clindamycin Phosphate 600 mg/ (Dextrose) 54 mls @ 100 mls/hr IV Q8H [facility] Last Admin: 11/08/17 05:28 Dose: Not Given Admin: 11/07/17 22:53 Dose: Not Given Insulin Human Lispro (Humalog) 0 unit SQ ACHS [facility] PRN Reason: Protocol Last Admin: 11/08/17 07:52 Dose: Not Given Admin: 11/07/17 21:01 Dose: Not Given Admin: 11/07/17 17:39 Dose: 4 unit Admin: 11/07/17 11:12 Dose: 4 unit Admin: 11/07/17 07:03 Dose: Not Given Admin: 11/06/17 20:55 Dose: 2 unit Lactulose (Cephulac) 20 gm PO TID [facility] Last Admin: 11/08/17 09:20 Dose: 20 gm Admin: 11/07/17 21:08 Dose: 20 gm Admin: 11/07/17 15:15 Dose: 20 gm Admin: 11/07/17 08:59 Dose: 20 gm Admin: 11/06/17 20:40 Dose: 20 gm Senna (Senokot) 2 tab PO HS [facility] Last Admin: 11/07/17 21:08 Dose: 2 tab Admin: 11/06/17 20:40 Dose: 2 tab Sodium Chloride (Saline Flush) 10 ml IV Q12 [facility] Last Admin: 11/08/17 09:50 Dose: 10 ml Admin: 11/07/17 21:12 Dose: Not Given Admin: 11/07/17 09:05 Dose: Not Given Spironolactone (Aldactone) 50 mg PO DAILY [facility] Last Admin: 11/08/17 09:18 Dose: 50 mg Admin: 11/07/17 08:59 Dose: 50 mg Warfarin Sodium (Coumadin) 5 mg PO DAILY@1400 [facility] Last Admin: 11/07/17 13:53 Dose: 5 mg Admin: 11/06/17 20:41 Dose: 5 mg Shift Summary 11/08/17 04:59 Shift Summary by Kristin Zarate&Ox4. VSS on RA while awake; uses Bipap when sleeping. 18 gauge to left hand is SL. 20 to LAC is SL and PICC is to be placed to the site today. Patient has generalized edema and pitting edema to BLE. fine crackles noted in bases. Dressing in place to surgical site to right knee; brace also in place and locked in full extension. Up with FWW, gait belt and 2 assist. Medicated with 2 tablets Wilder 10/325mg for right knee pain x2. Will update at bedside. Initialized on 11/08/17 04:59 - END OF NOTE
--- NOTE | 2017-11-08 11:14 | XRay Report ---
HISTORY: Reason for Exam:PICC Placement FINDINGS: The PICC line has been inserted through the left arm. The tip is at the junction of the innominate vein and superior vena cava. There is no pneumothorax or pleural effusion. There are generalized infiltrates in both lungs, right worse than left. The heart is enlarged. IMPRESSION: Well-positioned PICC line at the boundary of the innominate vein and superior vena cava Bilateral pulmonary infiltrates which could be due to congestive heart failure with pulmonary edema or widespread pneumonia The charge nurse was called with the results Interpreted and Authenticated by: Leroy Thornton 11/08/17
[2017-11-08] MEDS: VANCOMYCIN 1,500 MG in 0.9 % SODIUM CHLORIDE 500 ML IV SCH ×2 (11:23→21:21)
[2017-11-08] MEDS: HYDROmorphone 2 MG/ML VIAL IV PRN (11:35)
--- NOTE | 2017-11-08 11:35 | Orthopedic Progress Note ---
Subjective Patient information: Note initiated : 11/08/17 at 11:32 am Service Date, if different from initiated Date: [] Patient: Jamie Aggarwal 67 y/o M admitted on 11/06/17 for Right Knee, Removal of Total Knee, I&D . Chief Complaint: [] Principal diagnosis: infected TKA Interval history: complains of significant pain still Objective Vital signs: Vital Signs Temp Pulse Resp BP BP Pulse Ox 11/08/17 06:46 97.9 F 18 117/63 94 11/08/17 03:40 98.1 F 64 14 133/71 96 11/08/17 00:00 97.1 F 69 13 124/67 96 11/07/17 19:30 98.1 F 68 13 130/58 95 11/07/17 16:00 99.2 F H 18 123/66 95 11/07/17 12:00 98.4 F 20 133/65 96 Intake and Output 11/07/17 11/08/17 11/08/17 21:59 05:59 13:59 Intake Total 1000 / 1000 1450 / 1450 200 / 200 Output Total 370 / 370 915 / 915 325 / 325 Balance 630 / 630 535 / 535 -125 / -125 Intake: IV 1000 / 1000 650 / 650 Sodium Chloride 0.9% 1,000 ml @ 1000 / 1000 150 / 150 100 mls/hr IV .Q10H [facility] Rx#: [id number] Vancomycin 1,500 mg In Sodium 500 / 500 Chloride 0.9% 500 ml @ 333.3 mls/hr IV Q12H [facility] Rx#: [id number] Oral 800 / 800 200 / 200 Output: Drainage 170 / 170 90 / 90 Right Knee 170 / 170 90 / 90 Void Amount 200 / 200 825 / 825 325 / 325 Other: Meal Milkshake Breakfast Percent of Meal Consumed 100% 75% Feeding Ability Independent # Voids 1 # Bowel Movements 1 Weight 263 lb 8 oz Intake & Output: Intake & Output 11/07/17 11/08/17 11/08/17 21:59 05:59 13:59 Intake Total 1000 / 1000 1450 / 1450 200 / 200 Output Total 370 / 370 915 / 915 325 / 325 Balance 630 / 630 535 / 535 -125 / -125 Weight 263 lb 8 oz Intake: IV 1000 / 1000 650 / 650 Sodium Chloride 0.9% 1,000 ml @ 1000 / 1000 150 / 150 100 mls/hr IV .Q10H [facility] Rx#: [id number] Vancomycin 1,500 mg In Sodium 500 / 500 Chloride 0.9% 500 ml @ 333.3 mls/hr IV Q12H [facility] Rx#: [id number] Oral 800 / 800 200 / 200 Output: Drainage 170 / 170 90 / 90 Right Knee 170 / 170 90 / 90 Void Amount 200 / 200 825 / 825 325 / 325 Other: Meal Milkshake Breakfast Percent of Meal Consumed 100% 75% Feeding Ability Independent # Voids 1 # Bowel Movements 1 Dressing: Yes intact Weight bearing status: as tolerated Neurological exam IM: Yes alert, Yes oriented X3 Extremities exam IM: Yes neurovascular intact - Labs CBC & BMP: 11/07/17 05:03 11/01/17 14:09 Labs: Orthopedic Labs 11/08/17 11/07/17 05:40 05:03 PT 17.2 H 16.2 H INR 1.4 H 1.3 H 11/07/17 11/01/17 05:03 14:10 Hgb 10.2 L 10.9 L Hct 29.6 L 31.6 L Assessment and Plan (1) Infection of total knee replacement POD#2 s/p removal of infected TKA-stable, gram stain neg, cx's ngtd, afebrile -IV abx per hospitalist recs -awaiting cx results -plan Snf placement tomorrow Status: Acute
[2017-11-08 11:48] LABS: Estimated Average Glucose(eAG) 97 mg/dL
[2017-11-08] MEDS: WARFARIN 5 MG TABLET PO SCH (13:37)
[2017-11-08] MEDS: CLINDAMYCIN 600 MG in 0.9 % SODIUM CHLORIDE 50 ML IV SCH ×2 (13:47→23:00)
--- NOTE | 2017-11-08 20:30 | Internal Med Progress Note ---
Medical - PN: Subj Patient information: Note initiated : 11/08/17 at 8:27 pm Service Date, if different from initiated Date: [] Patient: Jamie Aggarwal 67 y/o M admitted on 11/06/17 for Right Knee, Removal of Total Knee, I&D . Chief Complaint: f/u TKR infection Interval history: 11/07-consulted on this 67-year-old gentleman who had a right total knee arthroplasty approximately 3 years ago. He subsequently had revision for instability, and underwent revision with liner exchange on June 12, 2017. He tolerated the procedure well, intraoperative cultures were without growth. He did well initially, however he presented to [facility] on July 09 with complaints of surgical wound becoming red hot and swollen for 3-4 days. Apparently he had been working on a porch and had dehiscence of the wound. He had purulent drainage from the wound, and on July 10 he underwent irrigation debridement and had liner exchange and placement of antibiotic beads. Purulence extended into the wound at that time. Cultures were notable for eventual growth of Staphylococcus saccharolyticus on 1 of 3 anaerobic cultures, finalizing on July 20. All other aerobic and anaerobic cultures remained no growth. At that time he was started on vancomycin and ceftriaxone. He was eventually discharged from the hospital on July 13, and completed a 6 week course of antibiotics on August 24. He received vancomycin and ceftriaxone. Patient states he did well initially after antibiotics stopped, however then noted that he was having difficulty walking upstairs, apparently from pain in the knee. He also developed swelling of the knee. This occurred before . His symptoms continued to progress, particularly the swelling. Because of this, he presented to Dr. Simmons's office, who took him to the OR yesterday for incision and drainage. There is purulent material in the joint. He had removal of the hardware, a new femoral component and tibial component with antibiotics cementation antibiotic beads to allow weight bearing. Cultures were done intraoperatively. In addition to the patient's symptoms, inflammatory markers have worsened with a sedimentation rate of 65 and CRP of 8.0. 11/08-I saw the patient in late afternoon. He was still complaining of pain postoperatively. Cultures were reviewed, he now is growing coagulase-negative staph from both sets of intraoperative cultures from 2 days ago. Patient denies any fevers or chills. - Constitutional Vitals: Vital Signs Temp Pulse Resp BP Pulse Ox 98.0 F 66 12 134/66 97 11/08/17 19:20 11/08/17 19:20 11/08/17 19:20 11/08/17 19:20 11/08/17 19:20 Period Temp Pulse Resp BP Sys/Roper Pulse Ox Last 24 Hr 97.1 F-98.9 F 56-69 12-18 117-143/62-71 92-97 Intake and Output 11/08/17 11/08/17 11/08/17 05:59 13:59 21:59 Intake Total 1450 / 1450 700 / 700 754 / 754 Output Total 915 / 915 700 / 700 Balance 535 / 535 0 / 0 754 / 754 Weight 263 lb 8 oz Patient Weight 11/09/17 05:59 Weight 263 lb 8 oz Intake & Output: Intake & Output 11/08/17 11/08/17 11/08/17 05:59 13:59 21:59 Intake Total 1450 / 1450 700 / 700 754 / 754 Output Total 915 / 915 700 / 700 Balance 535 / 535 0 / 0 754 / 754 Weight 263 lb 8 oz Intake: IV 650 / 650 500 / 500 54 / 54 Sodium Chloride 0.9% 1,000 ml @ 150 / 150 100 mls/hr IV .Q10H [facility] Rx#: [id number] Cleocin 600 mg In Sodium 54 / 54 Chloride 0.9% 50 ml @ 100 mls/ hr IV Q8H [facility] Rx#:[id number] Vancomycin 1,500 mg In Sodium 500 / 500 500 / 500 Chloride 0.9% 500 ml @ 333.3 mls/hr IV Q12H [facility] Rx#: [id number] Oral 800 / 800 200 / 200 700 / 700 Output: Drainage 90 / 90 Right Knee 90 / 90 Void Amount 825 / 825 700 / 700 Other: Meal Lunch Dinner Percent of Meal Consumed 100% Refused # Voids 1 # Bowel Movements 1 1 Exam: General: Sleeping, awakes, no distress Chest: Unlabored, clear Cardiovascular: Regular, no murmur. Abdomen: Soft, nontender, mildly distended Musculoskeletal: Right lower extremity in knee brace, postop dressings have been changed. Extremity neurovascular intact Neuro: Alert, oriented 3, no asterixis Medical - PN: Obj Da - Labs CBC & Chem 7: 11/07/17 05:03 11/01/17 14:09 Labs: Abnormal Lab Results 11/08/17 11/07/17 11/07/17 05:40 05:03 05:03 RBC 3.26 L Hgb 10.2 L Hct 29.6 L RDW 15.9 H MPV 6.7 L Gran % 89.1 H Lymph % (Auto) 3.8 L Lymph # (Auto) 0.3 L ESR PT 17.2 H 16.2 H INR 1.4 H 1.3 H C-Reactive Protein 11/06/17 11/06/17 11/06/17 18:56 18:56 11:43 RBC Hgb Hct RDW MPV Gran % Lymph % (Auto) Lymph # (Auto) ESR 65 H 61 H PT INR C-Reactive Protein 8.0 H Microbiology 11/06/17 18:17 Gram Stain - Final Knee - Right Gram Stain - Final Anaerobic Culture - Preliminary Gram Stain - Final Wound Culture - Preliminary Coagulase negative staph 11/06/17 18:18 Gram Stain - Final Knee - Right Gram Stain - Final Anaerobic Culture - Preliminary Gram Stain - Final Wound Culture - Preliminary Coagulase negative staph 11/06/17 18:17 Fungal Smear - Final Knee - Right 11/06/17 18:18 Fungal Smear - Final Knee - Right Meds: Medications Hydrocodone Bitart/Acetaminophen ([place] 10/325mg) 0 tab PO Q4HP PRN PRN Reason: PAIN LEVEL 3-6 Last Admin: 11/08/17 15:22 Dose: 2 tab Bisacodyl (Dulcolax) 10 mg [place] Q2-3DAYS PRN PRN Reason: Constipation Dextrose (Dextrose 50%) 0 ml IV UD PRN PRN Reason: Hypoglycemia Diagnostic Test (Pha) (Accu-Chek) 1 each FS ACHS [facility] Last Admin: 11/08/17 17:18 Dose: 1 each Docusate Sodium (Colace) 100 mg PO BID [facility] Last Admin: 11/08/17 09:19 Dose: 100 mg Escitalopram Oxalate (Lexapro) 10 mg PO DAILY [facility] Last Admin: 11/08/17 09:19 Dose: 10 mg Furosemide (Lasix) 40 mg PO DAILY [facility] Last Admin: 11/08/17 09:20 Dose: 40 mg Glucose (Insta-Glucose) 15 gm PO PRN PRN PRN Reason: Hypoglycemia Heparin Sodium (Porcine) (Heparin Flush) 2 ml IV Q12 [facility] Last Admin: 11/08/17 09:50 Dose: Not Given Hydromorphone HCl (Dilaudid) 0 mg IV Q2HP PRN PRN Reason: PAIN LEVEL > 6 Last Admin: 11/08/17 11:35 Dose: 1 mg Sodium Chloride (Sodium Chloride 0.9%) 1,000 mls @ 100 mls/hr IV .Q10H [facility] Last Admin: 11/08/17 20:23 Dose: Not Given Vancomycin HCl 1,500 mg/ (Sodium Chloride) 500 mls @ 333.3 mls/hr IV Q12H [facility] Last Infusion: 11/08/17 13:00 Dose: Infused Clindamycin Phosphate 600 mg/ (Sodium Chloride) 54 mls @ 100 mls/hr IV Q8H [facility] Last Infusion: 11/08/17 14:20 Dose: Infused Insulin Human Lispro (Humalog) 0 unit SQ ACHS [facility] PRN Reason: Protocol Last Admin: 11/08/17 17:48 Dose: Not Given Lactulose (Cephulac) 20 gm PO TID [facility] Last Admin: 11/08/17 14:44 Dose: 20 gm Magnesium Hydroxide (Milk Of Magnesia) 30 ml PO BIDP PRN PRN Reason: Constipation Ondansetron HCl (Zofran) 4 mg IV Q4HP PRN PRN Reason: Nausea And Vomiting Oxycodone HCl (Roxicodone) 5 - 10 mg PO Q4HP PRN PRN Reason: Pain Polyethylene Glycol (Miralax) 17 gm PO DAILYP PRN PRN Reason: Constipation Senna (Senokot) 2 tab PO HS [facility] Last Admin: 11/07/17 21:08 Dose: 2 tab Sodium Biphosphate/Sodium Phosphate (Fleets Adult) 1 dose [place] Q3-4DAYS PRN PRN Reason: Constipation Sodium Chloride (Saline Flush) 10 ml IV UD PRN PRN Reason: FLUSH Sodium Chloride (Saline Flush) 10 ml IV Q12 [facility] Last Admin: 11/08/17 09:50 Dose: 10 ml Spironolactone (Aldactone) 50 mg PO DAILY [facility] Last Admin: 11/08/17 09:18 Dose: 50 mg Throat Lozenges (Cepacol) 1 lozenge PO PRN PRN PRN Reason: Sore Throat Vancomycin HCl (Vancomycin Per Pharmacy) 0 order IV UD [facility] Warfarin Sodium (Coumadin Per Pharmacy) 1 order PO UD [facility] Warfarin Sodium (Coumadin) 5 mg PO DAILY@1400 [facility] Last Admin: 11/08/17 13:37 Dose: 5 mg Medical - PN: A/P - Time Spent With Patient Total time spent is greater than 50% in coordination of care (as documented) at patient's floor/unit and/or counseling patient: 25 - 35 minutes (1) Infection of total knee replacement Status: Acute Current Visit: Yes - Narrative A/P Narrative: 67-year-old male with a history of cirrhosis, osteoarthritis, status post right total knee arthroplasty with revision and subsequent infection of revised prosthesis (liner was exchanged) and wound. Now with recurrent infection. Infected right total knee arthroplasty. Current cultures growing coag-negative staph from late this afternoon (Saturday). Single culture from July 09 grew an anaerobic coag-negative Staphylococcus. May be the same organism, though was not eradicated with initial antibiotic regimen. Alternatively may represent either coag-negative staph, some of which can be pathogenic, including anaerobic species. At this point we'll need to identify species to better determine final antibiotic choices. Recommendation: -Continue vancomycin and clindamycin -Delay discharge to skilled facility -Follow up current intraoperative cultures for final identification. 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 Currently compensated no evidence of encephalopathy. Plan: Continue with lactulose. Elevated blood glucoses. No prior history of diabetes. Is currently being covered with insulin. Could be secondary to physiologic stress from infection. Plan: Check hemoglobin A1c Will continue to follow Medical - PN: Qual - VTE Deep Vein Thrombosis/Pulmonary Embolism Present on Admission: No
[2017-11-08] MEDS: SENNOSIDES 1 TABLET PO SCH (21:36)
[2017-11-08] MEDS: 0.9 % SODIUM CHLORIDE 10 ML SYRINGE IV PRN (23:40)
[2017-11-09] MEDS: HYDROcodone/APAP 10/325MG TABLET PO PRN ×2 (00:44→05:12)
[2017-11-09] MEDS: 0.9 % SODIUM CHLORIDE 1,000 ML IV SCH (06:01)
[2017-11-09] MEDS: 0.9 % SODIUM CHLORIDE 10 ML SYRINGE IV PRN (06:02)
[2017-11-09] MEDS: CLINDAMYCIN 600 MG in 0.9 % SODIUM CHLORIDE 50 ML IV SCH ×3 (06:02→22:45)
[2017-11-09] MEDS: INSULIN LISPRO 1 UNIT/0.01 ML UNIT SQ SCH ×4 (08:07→21:14)
[2017-11-09] MEDS: DOCUSATE SODIUM 100 MG CAPSULE PO SCH ×2 (08:38→21:06)
[2017-11-09] MEDS: LACTULOSE 20 GM/30 ML ORAL.SOL PO SCH ×5 (08:38→21:05)
[2017-11-09] MEDS: SPIRONOLACTONE 25 MG TABLET PO SCH (08:41)
[2017-11-09] MEDS: FUROSEMIDE 40 MG TABLET PO SCH (08:41)
[2017-11-09] MEDS: 0.9 % SODIUM CHLORIDE 10 ML SYRINGE IV SCH ×2 (08:42→21:05)
[2017-11-09] MEDS: ESCITALOPRAM 10 MG TABLET PO SCH (08:42)
[2017-11-09] MEDS: VANCOMYCIN 1,500 MG in 0.9 % SODIUM CHLORIDE 500 ML IV SCH ×2 (08:42→21:04)
[2017-11-09] MEDS: oxyCODONE HCL 5 MG TABLET PO PRN ×4 (08:42→21:06)
--- NOTE | 2017-11-09 09:14 | Orthopedic Progress Note ---
Subjective Patient information: Note initiated : 11/09/17 at 9:12 am Service Date, if different from initiated Date: [] Patient: Jamie Aggarwal 67 y/o M admitted on 11/06/17 for Right Knee, Removal of Total Knee, I&D . Chief Complaint: [POD #3 s/p right I&D right knee with removal of hardware Patient is sitting up eating breakfast. He reports moderate pain in the left knee but otherwise has no concerns. He denies calf pain, SOB, chest pain, numbness or tingling in either foot. He has no questions or concerns at this time.] Principal diagnosis: infected TKA Objective Vital signs: Vital Signs Temp Pulse Resp BP Pulse Ox 11/09/17 07:34 98.8 F 20 146/74 97 11/09/17 04:00 98.2 F 58 L 16 136/73 97 11/08/17 22:23 98 F 59 L 132/76 97 11/08/17 19:20 98.0 F 66 12 134/66 97 11/08/17 17:53 14 11/08/17 16:00 98 F 16 138/62 94 11/08/17 13:14 98.3 F 56 L 12 143/62 92 11/08/17 12:00 98.9 F 18 132/70 96 Intake and Output 11/08/17 11/09/17 11/09/17 21:59 05:59 13:59 Intake Total 754 / 754 1354 / 1354 54 / 54 Output Total 350 / 350 Balance 754 / 754 1004 / 1004 54 / 54 Intake: IV 54 / 54 554 / 554 54 / 54 Cleocin 600 mg In Sodium 54 / 54 54 / 54 54 / 54 Chloride 0.9% 50 ml @ 100 mls/ hr IV Q8H [facility] Rx#:[id number] Vancomycin 1,500 mg In Sodium 500 / 500 Chloride 0.9% 500 ml @ 333.3 mls/hr IV Q12H [facility] Rx#: [id number] Oral 700 / 700 800 / 800 Output: Void Amount 350 / 350 Other: Meal Dinner Percent of Meal Consumed Refused # Voids 1 1 # Bowel Movements 1 1 Weight 260 lb 8 oz Intake & Output: Intake & Output 11/08/17 11/09/17 11/09/17 21:59 05:59 13:59 Intake Total 754 / 754 1354 / 1354 54 / 54 Output Total 350 / 350 Balance 754 / 754 1004 / 1004 / 54 Weight 260 lb 8 oz Intake: IV 554 / 554 54 / 54 Cleocin 600 mg In Sodium 54 / 54 54 / 54 54 / 54 Chloride 0.9% 50 ml @ 100 mls/ hr IV Q8H [facility] Rx#:[id number] Vancomycin 1,500 mg In Sodium 500 / 500 Chloride 0.9% 500 ml @ 333.3 mls/hr IV Q12H [facility] Rx#: [id number] Oral 700 / 700 800 / 800 Output: Void Amount 350 / 350 Other: Meal Dinner Percent of Meal Consumed Refused # Voids 1 1 # Bowel Movements 1 1 Incision: Yes healing Incision clean and dry: Yes Dressing: Yes clean, Yes dry, Yes intact Weight bearing status: as tolerated (with assistive device) Neurological exam IM: Yes alert, Yes oriented X3, Yes neurovascular intact Extremities exam IM: No calf tenderness, Yes normal capillary refill, Yes normal inspection, No Bob's sign, Yes Foot pink and warm, Yes neurovascular intact - Periperhal Pulses Peripheral pulses: 2+: dorsalis pedis (L), dorsalis pedis (R), posterior tibialis (L), posterior tibialis (R) - Labs CBC & BMP: 11/07/17 05:03 11/01/17 14:09 Labs: Orthopedic Labs 11/09/17 11/08/17 11/07/17 06:20 05:40 05:03 PT Pending 17.2 H 16.2 H INR Pending 1.4 H 1.3 H 11/07/17 11/01/17 05:03 14:10 Hgb 10.2 L 10.9 L Hct 29.6 L 31.6 L Assessment and Plan (1) Infection of total knee replacement Assessment: Infection of total knee replacement right knee s/p I&D with removal of implants Plan: -patient will d/c to SNF once referral is accepted -outpatient IV antibiotics per hospitalist recommendation -keep aquacel in place over placido for 5-7 days, may shower with aquacel on. -f/u with Dr. Simmons in clinic in 10-14 days for staple removal Status: Acute
[2017-11-09] MEDS ORDERED: WARFARIN 2.5 MG TABLET PO ONE (14:00)
--- NOTE | 2017-11-09 16:51 | Internal Med Progress Note ---
Medical - PN: Subj Patient information: Note initiated : 11/09/17 at 4:48 pm Service Date, if different from initiated Date: [] Patient: Jamie Aggarwal 67 y/o M admitted on 11/06/17 for Right Knee, Removal of Total Knee, I&D . Chief Complaint: follow-up right TKA infection Interval history: 11/07-consulted on this 67-year-old gentleman who had a right total knee arthroplasty approximately 3 years ago. He subsequently had revision for instability, and underwent revision with liner exchange on June 12, 2017. He tolerated the procedure well, intraoperative cultures were without growth. He did well initially, however he presented to [facility] on July 09 with complaints of surgical wound becoming red hot and swollen for 3-4 days. Apparently he had been working on a porch and had dehiscence of the wound. He had purulent drainage from the wound, and on July 10 he underwent irrigation debridement and had liner exchange and placement of antibiotic beads. Purulence extended into the wound at that time. Cultures were notable for eventual growth of Staphylococcus saccharolyticus on 1 of 3 anaerobic cultures, finalizing on July 20. All other aerobic and anaerobic cultures remained no growth. At that time he was started on vancomycin and ceftriaxone. He was eventually discharged from the hospital on July 13, and completed a 6 week course of antibiotics on August 24. He received vancomycin and ceftriaxone. Patient states he did well initially after antibiotics stopped, however then noted that he was having difficulty walking upstairs, apparently from pain in the knee. He also developed swelling of the knee. This occurred before . His symptoms continued to progress, particularly the swelling. Because of this, he presented to Dr. Simmons's office, who took him to the OR yesterday for incision and drainage. There is purulent material in the joint. He had removal of the hardware, a new femoral component and tibial component with antibiotics cementation antibiotic beads to allow weight bearing. Cultures were done intraoperatively. In addition to the patient's symptoms, inflammatory markers have worsened with a sedimentation rate of 65 and CRP of 8.0. 2/2-I saw the patient in late afternoon. He was still complaining of pain postoperatively. Cultures were reviewed, he now is growing coagulase-negative staph from both sets of intraoperative cultures from 2 days ago. Patient denies any fevers or chills. /3-still with some pain postoperatively. Slept poorly last night. Pain meds help some. Also notes increased urination with the diuretic. Working with physical therapy. Cultures from intraoperative, both sets, positive for coag- negative Staphylococcus. I've asked the lab to speciate, though they can say that it is not Staphylococcus lugdunesis, which often behaves more like staph aureus. Likely is Staphylococcus epidermidis. Sensitivities are to vancomycin. Given coag-negative staph, vancomycin is the preferred agent. - Constitutional Vitals: Vital Signs Temp Pulse Resp BP Pulse Ox 98.8 F 58 L 20 132/70 96 11/09/17 15:28 11/09/17 04:00 11/09/17 15:28 11/09/17 15:28 11/09/17 15:28 Period Temp Pulse Resp BP Sys/Roper Pulse Ox Last 24 Hr 98 F-98.8 F 58-66 12-20 132-146/66-76 96-97 Intake and Output 11/09/17 11/09/17 11/09/17 05:59 13:59 21:59 Intake Total 1354 / 1354 794 / 794 500 / 500 Output Total 350 / 350 1450 / 1450 250 / 250 Balance 1004 / 1004 -656 / -656 250 / 250 Intake & Output: Intake & Output 11/09/17 11/09/17 11/09/17 05:59 13:59 21:59 Intake Total 1354 / 1354 794 / 794 500 / 500 Output Total 350 / 350 1450 / 1450 250 / 250 Balance 1004 / 1004 -656 / -656 250 / 250 Intake: IV 554 / 554 554 / 554 Cleocin 600 mg In Sodium 54 / 54 54 / 54 Chloride 0.9% 50 ml @ 100 mls/ hr IV Q8H [facility] Rx#:[id number] Vancomycin 1,500 mg In Sodium 500 / 500 500 / 500 Chloride 0.9% 500 ml @ 333.3 mls/hr IV Q12H [facility] Rx#: [id number] Oral 800 / 800 240 / 240 500 / 500 Output: Void Amount 350 / 350 1450 / 1450 250 / 250 Other: Meal Lunch Percent of Meal Consumed 100% # Voids 1 # Bowel Movements 1 Exam: General: Laying in bed, no acute distress Chest: Unlabored, clear Cardiovascular: Regular, trace edema Abdomen: Soft, active bowel sounds, nontender Musculoskeletal: Right lower extremity in knee brace, ice packs over the knee, dressing in place Neuro: Alert, oriented, no asterixis. Medical - PN: Obj Da - Labs CBC & Chem 7: 11/07/17 05:03 11/01/17 14:09 Labs: Abnormal Lab Results 11/09/17 11/08/17 11/07/17 06:20 05:40 05:03 RBC Hgb Hct RDW MPV Gran % Lymph % (Auto) Lymph # (Auto) ESR PT 21.3 H 17.2 H 16.2 H INR 1.8 H 1.4 H 1.3 H C-Reactive Protein 11/07/17 11/06/17 11/06/17 05:03 18:56 18:56 RBC 3.26 L Hgb 10.2 L Hct 29.6 L RDW 15.9 H MPV 6.7 L Gran % 89.1 H Lymph % (Auto) 3.8 L Lymph # (Auto) 0.3 L ESR 65 H PT INR C-Reactive Protein 8.0 H Microbiology 11/06/17 18:17 Gram Stain - Final Knee - Right Gram Stain - Final Anaerobic Culture - Preliminary Gram Stain - Final Wound Culture - Final Coagulase negative staph 11/06/17 18:18 Gram Stain - Final Knee - Right Gram Stain - Final Anaerobic Culture - Preliminary Gram Stain - Final Wound Culture - Final Coagulase negative staph Meds: Medications Hydrocodone Bitart/Acetaminophen (Millen 10/325mg) 0 tab PO Q4HP PRN PRN Reason: PAIN LEVEL 3-6 Last Admin: 11/09/17 05:12 Dose: 2 tab Bisacodyl (Dulcolax) 10 mg [place] Q2-3DAYS PRN PRN Reason: Constipation Dextrose (Dextrose 50%) 0 ml IV UD PRN PRN Reason: Hypoglycemia Diagnostic Test (Pha) (Accu-Chek) 1 each FS ACHS [facility] Last Admin: 11/09/17 11:22 Dose: 1 each Docusate Sodium (Colace) 100 mg PO BID [facility] Last Admin: 11/09/17 08:38 Dose: Not Given Escitalopram Oxalate (Lexapro) 10 mg PO DAILY [facility] Last Admin: 11/09/17 08:42 Dose: 10 mg Furosemide (Lasix) 40 mg PO DAILY [facility] Last Admin: 11/09/17 08:41 Dose: 40 mg Glucose (Insta-Glucose) 15 gm PO PRN PRN PRN Reason: Hypoglycemia Heparin Sodium (Porcine) (Heparin Flush) 2 ml IV Q12 [facility] Last Admin: 11/09/17 08:42 Dose: 2 ml Hydromorphone HCl (Dilaudid) 0 mg IV Q2HP PRN PRN Reason: PAIN LEVEL > 6 Last Admin: 11/08/17 11:35 Dose: 1 mg Vancomycin HCl 1,500 mg/ (Sodium Chloride) 500 mls @ 333.3 mls/hr IV Q12H [facility] Last Infusion: 11/09/17 10:24 Dose: Infused Clindamycin Phosphate 600 mg/ (Sodium Chloride) 54 mls @ 100 mls/hr IV Q8H [facility] Last Admin: 11/09/17 13:48 Dose: 100 mls/hr Insulin Human Lispro (Humalog) 0 unit SQ ACHS [facility] PRN Reason: Protocol Last Admin: 11/09/17 11:23 Dose: Not Given Lactulose (Cephulac) 20 gm PO TID [facility] Last Admin: 11/09/17 08:38 Dose: Not Given Magnesium Hydroxide (Milk Of Magnesia) 30 ml PO BIDP PRN PRN Reason: Constipation Ondansetron HCl (Zofran) 4 mg IV Q4HP PRN PRN Reason: Nausea And Vomiting Oxycodone HCl (Roxicodone) 5 - 10 mg PO Q4HP PRN PRN Reason: Pain Last Admin: 11/09/17 12:59 Dose: 10 mg Polyethylene Glycol (Miralax) 17 gm PO DAILYP PRN PRN Reason: Constipation Senna (Senokot) 2 tab PO HS [facility] Last Admin: 11/08/17 21:36 Dose: 2 tab Sodium Biphosphate/Sodium Phosphate (Fleets Adult) 1 dose AR Q3-4DAYS PRN PRN Reason: Constipation Sodium Chloride (Saline Flush) 10 ml IV UD PRN PRN Reason: FLUSH Last Admin: 11/09/17 06:02 Dose: 10 ml Sodium Chloride (Saline Flush) 10 ml IV Q12 [facility] Last Admin: 11/09/17 08:42 Dose: 10 ml Spironolactone (Aldactone) 50 mg PO DAILY [facility] Last Admin: 11/09/17 08:41 Dose: 50 mg Throat Lozenges (Cepacol) 1 lozenge PO PRN PRN PRN Reason: Sore Throat Vancomycin HCl (Vancomycin Per Pharmacy) 0 order IV UD [facility] Warfarin Sodium (Coumadin Per Pharmacy) 1 order PO UD [facility] Medical - PN: A/P - Time Spent With Patient Total time spent is greater than 50% in coordination of care (as documented) at patient's floor/unit and/or counseling patient: 25 - 35 minutes (1) Infection of total knee replacement Status: Acute Current Visit: Yes - Narrative A/P Narrative: 67-year-old male with a history of cirrhosis, osteoarthritis, status post right total knee arthroplasty with revision and subsequent infection of revised prosthesis (liner was exchanged) and wound. Now with recurrent infection. Infected right total knee arthroplasty. Coag-negative Staphylococcus aureus on culture, vascular lab to identify species. Coag negative staph, cause prosthetic joint infections. This is different than the anaerobic Staphylococcus that grew on July 09 (confirmed this with the lab). Appears to be a de adrian infection. Vancomycin is the drug of choice, will need 6 weeks of therapy. Consider adding rifampin. Recommendation: -Continue vancomycin -Discontinue clindamycin -Discharge to skilled facility when available -Follow up current intraoperative cultures for final identification. 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 Currently compensated no evidence of encephalopathy. Plan: Continue with lactulose. Elevated blood glucoses. No prior history of diabetes. Is currently being covered with insulin. Could be secondary to physiologic stress from infection. Plan: Check hemoglobin A1c Will continue to follow Medical - PN: Qual - VTE Deep Vein Thrombosis/Pulmonary Embolism Present on Admission: No
[2017-11-10] MEDS: oxyCODONE HCL 5 MG TABLET PO PRN ×4 (02:16→22:17)
[2017-11-10] MEDS: HYDROmorphone 2 MG/ML VIAL IV PRN (04:30)
[2017-11-10] MEDS: CLINDAMYCIN 600 MG in 0.9 % SODIUM CHLORIDE 50 ML IV SCH ×3 (05:56→22:17)
[2017-11-10] MEDS: INSULIN LISPRO 1 UNIT/0.01 ML UNIT SQ SCH ×4 (07:25→20:11)
[2017-11-10] MEDS: LACTULOSE 20 GM/30 ML ORAL.SOL PO SCH ×3 (08:46→20:10)
[2017-11-10] MEDS: DOCUSATE SODIUM 100 MG CAPSULE PO SCH ×2 (08:47→20:10)
[2017-11-10] MEDS: SPIRONOLACTONE 25 MG TABLET PO SCH (08:47)
[2017-11-10] MEDS: FUROSEMIDE 40 MG TABLET PO SCH (08:47)
[2017-11-10] MEDS: VANCOMYCIN 1,500 MG in 0.9 % SODIUM CHLORIDE 500 ML IV SCH ×2 (08:48→20:25)
[2017-11-10] MEDS: 0.9 % SODIUM CHLORIDE 10 ML SYRINGE IV SCH ×2 (08:48→20:11)
[2017-11-10] MEDS: ESCITALOPRAM 10 MG TABLET PO SCH (08:48)
--- NOTE | 2017-11-10 08:48 | Orthopedic Progress Note ---
Subjective Patient information: Note initiated : 11/10/17 at 8:46 am Service Date, if different from initiated Date: [] Patient: Jamie Aggarwal 67 y/o M admitted on 11/06/17 for Right Knee, Removal of Total Knee, I&D . Chief Complaint: [POD #4 s/p right I&D and hardware removal of total knee Patient is doing well this morning. He ambulated down the hallway with PT this morning and did okay. He feels stiff and is having mild to moderate discomfort in the knee but overall is ok. He denies numbness or tingling down the right extremity as well as no calf pain, SOB or chest pain. He has no questions or concerns at this time.] Principal diagnosis: infected TKA Objective Vital signs: Vital Signs Temp Pulse Resp BP Pulse Ox 11/10/17 06:47 98.8 F 18 125/66 96 11/10/17 04:34 98.0 F 69 18 146/69 95 11/09/17 23:55 98.0 F 62 18 136/70 96 11/09/17 19:39 98.0 F 59 L 18 147/74 98 11/09/17 15:28 98.8 F 20 132/70 96 11/09/17 11:50 98.6 F 20 139/68 97 Intake and Output 11/09/17 11/10/17 11/10/17 21:59 05:59 13:59 Intake Total 554 / 554 1584 / 1584 54 / 54 Output Total 750 / 750 550 / 550 325 / 325 Balance -196 / -196 1034 / 1034 -271 / -271 Intake: IV 54 / 54 554 / 554 54 / 54 Cleocin 600 mg In Sodium 54 / 54 54 / 54 54 / 54 Chloride 0.9% 50 ml @ 100 mls/ hr IV Q8H [facility] Rx#:[id number] Vancomycin 1,500 mg In Sodium 500 / 500 Chloride 0.9% 500 ml @ 333.3 mls/hr IV Q12H [facility] Rx#: [id number] Oral 500 / 500 1030 / 1030 Output: Void Amount 750 / 750 550 / 550 325 / 325 Other: Meal Chocolate pudding Percent of Meal Consumed 100% Feeding Ability Independent # Voids 1 1 # Bowel Movements 1 Weight 260 lb 8 oz Intake & Output: Intake & Output 11/09/17 11/10/17 11/10/17 21:59 05:59 13:59 Intake Total 554 / 554 1584 / 1584 54 / 54 Output Total 750 / 750 550 / 550 325 / 325 Balance -196 / -196 1034 / 1034 -271 / -271 Weight 260 lb 8 oz Intake: IV 54 / 54 554 / 554 54 / 54 Cleocin 600 mg In Sodium 54 / 54 54 / 54 54 / 54 Chloride 0.9% 50 ml @ 100 mls/ hr IV Q8H [facility] Rx#:[id number] Vancomycin 1,500 mg In Sodium 500 / 500 Chloride 0.9% 500 ml @ 333.3 mls/hr IV Q12H [facility] Rx#: [id number] Oral 500 / 500 1030 / 1030 Output: Void Amount 750 / 750 550 / 550 325 / 325 Other: Meal Chocolate pudding Percent of Meal Consumed 100% Feeding Ability Independent # Voids 1 1 # Bowel Movements 1 Incision: Yes healing, Yes clean and dry Incision clean and dry: Yes Dressing: Yes clean, Yes dry, Yes intact (aquacel has some visible blood) Weight bearing status: partial Range of motion: 15 deg ext/50 deg flex. Full AROM ankle/foot/LLE Neurological exam IM: Yes abnormal gait, Yes alert, Yes oriented X3, Yes motor sensory intact, Yes neurovascular intact Extremities exam IM: No calf tenderness, Yes normal capillary refill, No Bob' s sign, Yes Foot pink and warm, Yes neurovascular intact - Periperhal Pulses Peripheral pulses: 2+: dorsalis pedis (L), dorsalis pedis (R), posterior tibialis (L), posterior tibialis (R) - Allied Health Allied health notes reviewed: PT - Labs CBC & BMP: 11/07/17 05:03 11/01/17 14:09 Labs: Orthopedic Labs 11/10/17 11/10/17 11/09/17 07:00 04:38 06:20 PT 21.5 H TNP 21.3 H INR 1.8 H Not Reportable 1.8 H 11/08/17 11/07/17 05:40 05:03 PT 17.2 H 16.2 H INR 1.4 H 1.3 H 11/07/17 11/01/17 05:03 14:10 Hgb 10.2 L 10.9 L Hct 29.6 L 31.6 L Assessment and Plan (1) Infection of total knee replacement Assessment: 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 Final growth is coagulase negative staph -may remove aquacel today and replace with dry dressing to keep fluid off of the wound. Replace dressing daily. Keep knee ranger in place -f/u with Dr. Simmons in clinic in 10-14 days for staple removal Status: Acute
[2017-11-10] MEDS ORDERED: WARFARIN 2.5 MG TABLET PO ONE (14:00)
--- NOTE | 2017-11-10 19:06 | Internal Med Progress Note ---
Medical - PN: Subj Patient information: Note initiated : 11/10/17 at 7:04 pm Service Date, if different from initiated Date: [] Patient: Jamie Aggarwal 67 y/o M admitted on 11/06/17 for Right Knee, Removal of Total Knee, I&D . Chief Complaint: f/u TKA infection Interval history: 11/07-consulted on this 67-year-old gentleman who had a right total knee arthroplasty approximately 3 years ago. He subsequently had revision for instability, and underwent revision with liner exchange on June 12, 2017. He tolerated the procedure well, intraoperative cultures were without growth. He did well initially, however he presented to [facility] on July 09 with complaints of surgical wound becoming red hot and swollen for 3-4 days. Apparently he had been working on a porch and had dehiscence of the wound. He had purulent drainage from the wound, and on July 10 he underwent irrigation debridement and had liner exchange and placement of antibiotic beads. Purulence extended into the wound at that time. Cultures were notable for eventual growth of Staphylococcus saccharolyticus on 1 of 3 anaerobic cultures, finalizing on July 20. All other aerobic and anaerobic cultures remained no growth. At that time he was started on vancomycin and ceftriaxone. He was eventually discharged from the hospital on July 13, and completed a 6 week course of antibiotics on August 24. He received vancomycin and ceftriaxone. Patient states he did well initially after antibiotics stopped, however then noted that he was having difficulty walking upstairs, apparently from pain in the knee. He also developed swelling of the knee. This occurred before . His symptoms continued to progress, particularly the swelling. Because of this, he presented to Dr. Simmons's office, who took him to the OR yesterday for incision and drainage. There is purulent material in the joint. He had removal of the hardware, a new femoral component and tibial component with antibiotics cementation antibiotic beads to allow weight bearing. Cultures were done intraoperatively. In addition to the patient's symptoms, inflammatory markers have worsened with a sedimentation rate of 65 and CRP of 8.0. 2/2-I saw the patient in late afternoon. He was still complaining of pain postoperatively. Cultures were reviewed, he now is growing coagulase-negative staph from both sets of intraoperative cultures from 2 days ago. Patient denies any fevers or chills. 2/3-still with some pain postoperatively. Slept poorly last night. Pain meds help some. Also notes increased urination with the diuretic. Working with physical therapy. Cultures from intraoperative, both sets, positive for coag- negative Staphylococcus. I've asked the lab to speciate, though they can say that it is not Staphylococcus lugdunesis, which often behaves more like staph aureus. Likely is Staphylococcus epidermidis. Sensitivities are to vancomycin. Given coag-negative staph, vancomycin is the preferred agent. /-final cultures from intraoperative I&D shows staph epidermidis. Different pathogen then what grew from one anaerobic culture from 07/09/17. Will require 6 weeks of intravenous vancomycin for full treatment. Patient is complaining of knee pain, after having been up to the bathroom. Also noted there was some bleeding when his knee was unwrapped earlier today. Otherwise is without particular complaints. Low disappointed to hear easily going to require 6 weeks of antibiotic therapy, but there does not appear to be a relatively recommended alternative, particularly given staph epidermidis as the pathogen. - Constitutional Vitals: Vital Signs Temp Pulse Resp BP Pulse Ox 98.5 F 81 18 146/76 96 11/10/17 15:22 11/10/17 15:22 11/10/17 15:22 11/10/17 15:22 11/10/17 15:22 Period Temp Pulse Resp BP Sys/Roper Pulse Ox Last 24 Hr 97.9 F-98.8 F 59-81 18-18 125-147/61-76 95-98 Intake and Output 11/10/17 11/10/17 11/10/17 05:59 13:59 21:59 Intake Total 1584 / 1584 554 / 554 840 / 840 Output Total 550 / 550 1275 / 1275 800 / 800 Balance 1034 / 1034 -721 / -721 40 / 40 Intake & Output: Intake & Output 11/10/17 11/10/17 11/10/17 05:59 13:59 21:59 Intake Total 1584 / 1584 554 / 554 840 / 840 Output Total 550 / 550 1275 / 1275 800 / 800 Balance 1034 / 1034 -721 / -721 40 / 40 Intake: IV 554 / 554 554 / 554 Cleocin 600 mg In Sodium 54 / 54 54 / 54 Chloride 0.9% 50 ml @ 100 mls/ hr IV Q8H [facility] Rx#:[id number] Vancomycin 1,500 mg In Sodium 500 / 500 500 / 500 Chloride 0.9% 500 ml @ 333.3 mls/hr IV Q12H [facility] Rx#: [id number] Oral 1030 / 1030 840 / 840 Output: Void Amount 550 / 550 1275 / 1275 800 / 800 Other: Meal Chocolate pudding Percent of Meal Consumed 100% Feeding Ability Independent # Voids 1 4 2 # Bowel Movements 1 1 1 Exam: General: Laying in bed, in no acute distress Chest: Clear Cardiac vascular: Regular, no lower extremity edema Abdomen: Obese, soft, active bowel sounds Musculoskeletal: Right lower extremity in brace, neurovascularly intact. Neuro: Alert, oriented 3, no confusion, no asterixis. Medical - PN: Obj Da - Labs CBC & Chem 7: 11/07/17 05:03 11/01/17 14:09 Labs: Abnormal Lab Results 11/10/17 11/09/17 11/08/17 07:00 06:20 05:40 PT 21.5 H 21.3 H 17.2 H INR 1.8 H 1.8 H 1.4 H Microbiology 11/06/17 18:17 Gram Stain - Final Knee - Right Gram Stain - Final Anaerobic Culture - Preliminary Gram Stain - Final Wound Culture - Final Staphylococcus epidermidis 11/06/17 18:18 Gram Stain - Final Knee - Right Gram Stain - Final Anaerobic Culture - Preliminary Gram Stain - Final Wound Culture - Final Staphylococcus epidermidis Meds: Medications Bisacodyl (Dulcolax) 10 mg [place] Q2-3DAYS PRN PRN Reason: Constipation Dextrose (Dextrose 50%) 0 ml IV UD PRN PRN Reason: Hypoglycemia Diagnostic Test (Pha) (Accu-Chek) 1 each FS ACHS [facility] Last Admin: 11/10/17 16:52 Dose: 1 each Docusate Sodium (Colace) 100 mg PO BID [facility] Last Admin: 11/10/17 08:47 Dose: 100 mg Escitalopram Oxalate (Lexapro) 10 mg PO DAILY [facility] Last Admin: 11/10/17 08:48 Dose: 10 mg Furosemide (Lasix) 40 mg PO DAILY [facility] Last Admin: 11/10/17 08:47 Dose: 40 mg Glucose (Insta-Glucose) 15 gm PO PRN PRN PRN Reason: Hypoglycemia Heparin Sodium (Porcine) (Heparin Flush) 2 ml IV Q12 [facility] Last Admin: 11/10/17 08:46 Dose: 2 ml Hydromorphone HCl (Dilaudid) 0 mg IV Q2HP PRN PRN Reason: PAIN LEVEL > 6 Last Admin: 11/10/17 04:30 Dose: 0.5 mg Vancomycin HCl 1,500 mg/ (Sodium Chloride) 500 mls @ 333.3 mls/hr IV Q12H [facility] Last Infusion: 11/10/17 10:19 Dose: Infused Clindamycin Phosphate 600 mg/ (Sodium Chloride) 54 mls @ 100 mls/hr IV Q8H [facility] Last Admin: 11/10/17 14:01 Dose: 100 mls/hr Insulin Human Lispro (Humalog) 0 unit SQ ACHS [facility] PRN Reason: Protocol Last Admin: 11/10/17 16:53 Dose: Not Given Lactulose (Cephulac) 20 gm PO TID [facility] Last Admin: 11/10/17 14:30 Dose: 20 gm Magnesium Hydroxide (Milk Of Magnesia) 30 ml PO BIDP PRN PRN Reason: Constipation Ondansetron HCl (Zofran) 4 mg IV Q4HP PRN PRN Reason: Nausea And Vomiting Oxycodone HCl (Roxicodone) 5 - 10 mg PO Q4HP PRN PRN Reason: Pain Last Admin: 11/10/17 17:54 Dose: 10 mg Polyethylene Glycol (Miralax) 17 gm PO DAILYP PRN PRN Reason: Constipation Sodium Biphosphate/Sodium Phosphate (Fleets Adult) 1 dose [place] Q3-4DAYS PRN PRN Reason: Constipation Sodium Chloride (Saline Flush) 10 ml IV UD PRN PRN Reason: FLUSH Last Admin: 11/09/17 06:02 Dose: 10 ml Sodium Chloride (Saline Flush) 10 ml IV Q12 [facility] Last Admin: 11/10/17 08:48 Dose: 10 ml Spironolactone (Aldactone) 50 mg PO DAILY [facility] Last Admin: 11/10/17 08:47 Dose: 50 mg Throat Lozenges (Cepacol) 1 lozenge PO PRN PRN PRN Reason: Sore Throat Vancomycin HCl (Vancomycin Per Pharmacy) 0 order IV UD [facility] Warfarin Sodium (Coumadin Per Pharmacy) 1 order PO UD [facility] Medical - PN: A/P - Time Spent With Patient Total time spent is greater than 50% in coordination of care (as documented) at patient's floor/unit and/or counseling patient: 25 - 35 minutes (1) Infection of total knee replacement Status: Acute Current Visit: Yes - Narrative A/P Narrative: 67-year-old male with a history of cirrhosis, osteoarthritis, status post right total knee arthroplasty with revision and subsequent infection of revised prosthesis (liner was exchanged) and wound. Now with recurrent infection. Infected right total knee arthroplasty. Staphylococcus epidermidis on final culture with speciation. Well-recognized pathogen for infecting prosthetic joints. Recommendations are for 6 weeks of therapy with vancomycin. Additional rifampin can be considered, would be hesitant to use rifampin in this patient with underlying liver disease, as carries risk of side effects. Current Staphylococcus different from the anaerobic species that was seen in one culture from July 09. 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 Currently compensated no evidence of encephalopathy. Plan: Continue with lactulose. Elevated blood glucoses. No prior history of diabetes. Is currently being covered with insulin. Could be secondary to physiologic stress from infection. Plan: Check hemoglobin A1c Will continue to follow Medical - PN: Qual - VTE Deep Vein Thrombosis/Pulmonary Embolism Present on Admission: No
[2017-11-11] MEDS: HYDROmorphone 2 MG/ML VIAL IV PRN (00:02)
[2017-11-11] MEDS: oxyCODONE HCL 5 MG TABLET PO PRN ×3 (03:44→11:27)
[2017-11-11 05:20] LABS: Basophils # (Auto) 0 K/mcL (0.0-0.3); Basophils % (Auto) 0.3 % (0.0-2.0); Eosinophils # (Auto) 0.2 K/mcL (0.0-0.7); Eosinophils % (Auto) 3.7 % (0.0-7.0); Granulocytes % (Auto) 67.3 % (38.0-78.0); Lymphocytes % (Auto) 15.2 % (15.5-49.0); Mean Cell Volume 91.2 fL (80.0-100.0); Mean Corpuscular HGB Conc 34.2 g/dL (31.0-36.0); Mean Corpuscular Hemoglobin 31.2 pg (26.0-34.0); Monocytes # (Auto) 0.9 K/mcL (0.1-0.9); Monocytes % (Auto) 13.5 % (1.0-12.0); Platelet Count 155 K/mcL (140-440); RBC 3.18 M/mcL (4.50-5.90); Red Cell Distribution Width 16.5 % (11.5-14.5)
[2017-11-11 05:44] LABS: Blood Urea Nitrogen 10 mg/dl (8-23)
[2017-11-11] MEDS: CLINDAMYCIN 600 MG in 0.9 % SODIUM CHLORIDE 50 ML IV SCH ×2 (06:04→13:19)
[2017-11-11] MEDS: INSULIN LISPRO 1 UNIT/0.01 ML UNIT SQ SCH ×2 (07:00→11:29)
[2017-11-11] MEDS: LACTULOSE 20 GM/30 ML ORAL.SOL PO SCH (09:05)
[2017-11-11] MEDS: SPIRONOLACTONE 25 MG TABLET PO SCH (09:06)
[2017-11-11] MEDS: ESCITALOPRAM 10 MG TABLET PO SCH (09:06)
[2017-11-11] MEDS: DOCUSATE SODIUM 100 MG CAPSULE PO SCH (09:06)
[2017-11-11] MEDS: FUROSEMIDE 40 MG TABLET PO SCH (09:06)
[2017-11-11] MEDS: 0.9 % SODIUM CHLORIDE 10 ML SYRINGE IV SCH (09:07)
--- NOTE | 2017-11-11 09:27 | Internal Med Progress Note ---
Medical - PN: Subj Patient information: Note initiated : 11/11/17 at 9:24 am Service Date, if different from initiated Date: [] Patient: Jamie Aggarwal 67 y/o M admitted on 11/06/17 for Right Knee, Removal of Total Knee, I&D . Chief Complaint: follow-up TKA infection Interval history: 11/07-consulted on this 67-year-old gentleman who had a right total knee arthroplasty approximately 3 years ago. He subsequently had revision for instability, and underwent revision with liner exchange on June 12, 2017. He tolerated the procedure well, intraoperative cultures were without growth. He did well initially, however he presented to [facility] on July 09 with complaints of surgical wound becoming red hot and swollen for 3-4 days. Apparently he had been working on a porch and had dehiscence of the wound. He had purulent drainage from the wound, and on July 10 he underwent irrigation debridement and had liner exchange and placement of antibiotic beads. Purulence extended into the wound at that time. Cultures were notable for eventual growth of Staphylococcus saccharolyticus on 1 of 3 anaerobic cultures, finalizing on July 20. All other aerobic and anaerobic cultures remained no growth. At that time he was started on vancomycin and ceftriaxone. He was eventually discharged from the hospital on July 13, and completed a 6 week course of antibiotics on August 24. He received vancomycin and ceftriaxone. Patient states he did well initially after antibiotics stopped, however then noted that he was having difficulty walking upstairs, apparently from pain in the knee. He also developed swelling of the knee. This occurred before . His symptoms continued to progress, particularly the swelling. Because of this, he presented to Dr. Simmons's office, who took him to the OR yesterday for incision and drainage. There is purulent material in the joint. He had removal of the hardware, a new femoral component and tibial component with antibiotics cementation antibiotic beads to allow weight bearing. Cultures were done intraoperatively. In addition to the patient's symptoms, inflammatory markers have worsened with a sedimentation rate of 65 and CRP of 8.0. 2/2-I saw the patient in late afternoon. He was still complaining of pain postoperatively. Cultures were reviewed, he now is growing coagulase-negative staph from both sets of intraoperative cultures from 2 days ago. Patient denies any fevers or chills. 2/3-still with some pain postoperatively. Slept poorly last night. Pain meds help some. Also notes increased urination with the diuretic. Working with physical therapy. Cultures from intraoperative, both sets, positive for coag- negative Staphylococcus. I've asked the lab to speciate, though they can say that it is not Staphylococcus lugdunesis, which often behaves more like staph aureus. Likely is Staphylococcus epidermidis. Sensitivities are to vancomycin. Given coag-negative staph, vancomycin is the preferred agent. 2/4-final cultures from intraoperative I&D shows staph epidermidis. Different pathogen then what grew from one anaerobic culture from 07/09/17. Will require 6 weeks of intravenous vancomycin for full treatment. Patient is complaining of knee pain, after having been up to the bathroom. Also noted there was some bleeding when his knee was unwrapped earlier today. Otherwise is without particular complaints. Low disappointed to hear easily going to require 6 weeks of antibiotic therapy, but there does not appear to be a relatively recommended alternative, particularly given staph epidermidis as the pathogen. 2/5-stable overnight, still complaining of pain, particularly when up working with physical therapy. Does not think current hydrocodone dose is adequate. We 'll defer to orthopedics for further pain management. 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 Currently day 5 of vancomycin with an end date of 12/18/2017. - Constitutional Vitals: Vital Signs Temp Pulse Resp BP Pulse Ox 98.9 F 64 18 105/56 95 11/11/17 06:37 11/11/17 07:21 11/11/17 06:37 11/11/17 06:37 11/11/17 07:21 Period Temp Pulse Resp BP Sys/Roper Pulse Ox Last 24 Hr 97.9 F-99.5 F 55-81 - 105-151/56-76 95-97 Intake and Output 11/10/17 11/11/17 11/11/17 21:59 05:59 13:59 Intake Total 894 / 894 1054 / 1054 Output Total 800 / 800 925 / 925 550 / 550 Balance 94 / 94 129 / 129 -550 / -550 Weight 261 lb 8 oz 261 lb 8 oz Intake & Output: Intake & Output 11/10/17 11/11/17 11/11/17 21:59 05:59 13:59 Intake Total 894 / 894 1054 / 1054 Output Total 800 / 800 925 / 925 550 / 550 Balance 94 / 94 129 / 129 -550 / -550 Weight 261 lb 8 oz 261 lb 8 oz Intake: IV 54 / 54 554 / 554 Cleocin 600 mg In Sodium 54 / 54 54 / 54 Chloride 0.9% 50 ml @ 100 mls/ hr IV Q8H [facility] Rx#:[id number] Vancomycin 1,500 mg In Sodium 500 / 500 Chloride 0.9% 500 ml @ 333.3 mls/hr IV Q12H [facility] Rx#: [id number] Oral 840 / 840 500 / 500 Output: Void Amount 800 / 800 925 / 925 550 / 550 Other: # Voids 2 # Bowel Movements 1 Exam: General: Laying in bed, no distress Chest: Clear to auscultation, no rales Cardiovascular: Regular Abdomen: Soft, active bowel sounds Extremities: Right leg in knee brace. Neuro: Alert, oriented, no confusion, no asterixis. Medical - PN: Obj Da - Labs CBC & Chem 7: 11/11/17 04:00 11/11/17 04:00 Labs: Abnormal Lab Results 11/11/17 11/11/17 11/11/17 04:00 04:00 04:00 RBC 3.18 L Hgb 9.9 L Hct 29.0 L RDW 16.5 H MPV 7.0 L Lymph % (Auto) 15.2 L Platte % (Auto) 13.5 H Lymph # (Auto) 1.0 L PT 21.1 H INR 1.8 H Creatinine 0.6 L 11/10/17 11/09/17 07:00 06:20 RBC Hgb Hct RDW MPV Lymph % (Auto) Platte % (Auto) Lymph # (Auto) PT 21.5 H 21.3 H INR 1.8 H 1.8 H Creatinine Microbiology 11/06/17 18:17 Fungal Smear - Final Knee - Right Fungal Culture - Preliminary 11/06/17 18:18 Fungal Smear - Final Knee - Right Fungal Culture - Preliminary 11/06/17 18:17 Gram Stain - Final Knee - Right Gram Stain - Final Anaerobic Culture - Preliminary Gram Stain - Final Wound Culture - Final Staphylococcus epidermidis 11/06/17 18:18 Gram Stain - Final Knee - Right Gram Stain - Final Anaerobic Culture - Preliminary Gram Stain - Final Wound Culture - Final Staphylococcus epidermidis Meds: Medications Bisacodyl (Dulcolax) 10 mg RI Q2-3DAYS PRN PRN Reason: Constipation Dextrose (Dextrose 50%) 0 ml IV UD PRN PRN Reason: Hypoglycemia Diagnostic Test (Pha) (Accu-Chek) 1 each FS ACHS [facility] Last Admin: 11/11/17 07:00 Dose: 1 each Docusate Sodium (Colace) 100 mg PO BID [facility] Last Admin: 11/11/17 09:06 Dose: 100 mg Escitalopram Oxalate (Lexapro) 10 mg PO DAILY [facility] Last Admin: 11/11/17 09:06 Dose: 10 mg Furosemide (Lasix) 40 mg PO DAILY [facility] Last Admin: 11/11/17 09:06 Dose: 40 mg Glucose (Insta-Glucose) 15 gm PO PRN PRN PRN Reason: Hypoglycemia Heparin Sodium (Porcine) (Heparin Flush) 2 ml IV Q12 [facility] Last Admin: 11/11/17 09:07 Dose: 2 ml Hydromorphone HCl (Dilaudid) 0 mg IV Q2HP PRN PRN Reason: PAIN LEVEL > 6 Last Admin: 11/11/17 00:02 Dose: 0.5 mg Vancomycin HCl 1,500 mg/ (Sodium Chloride) 500 mls @ 333.3 mls/hr IV Q12H [facility] Last Infusion: 11/10/17 22:17 Dose: Infused Clindamycin Phosphate 600 mg/ (Sodium Chloride) 54 mls @ 100 mls/hr IV Q8H [facility] Last Admin: 11/11/17 06:04 Dose: 100 mls/hr Insulin Human Lispro (Humalog) 0 unit SQ [facility] PRN Reason: Protocol Last Admin: 11/11/17 07:00 Dose: Not Given Lactulose (Cephulac) 20 gm PO TID [facility] Last Admin: 11/11/17 09:05 Dose: 20 gm Magnesium Hydroxide (Milk Of Magnesia) 30 ml PO BIDP PRN PRN Reason: Constipation Ondansetron HCl (Zofran) 4 mg IV Q4HP PRN PRN Reason: Nausea And Vomiting Oxycodone HCl (Roxicodone) 5 - 10 mg PO Q4HP PRN PRN Reason: Pain Last Admin: 11/11/17 07:43 Dose: 10 mg Polyethylene Glycol (Miralax) 17 gm PO DAILYP PRN PRN Reason: Constipation Sodium Biphosphate/Sodium Phosphate (Fleets Adult) 1 dose RI Q3-4DAYS PRN PRN Reason: Constipation Sodium Chloride (Saline Flush) 10 ml IV UD PRN PRN Reason: FLUSH Last Admin: 11/09/17 06:02 Dose: 10 ml Sodium Chloride (Saline Flush) 10 ml IV Q12 [facility] Last Admin: 11/11/17 09:07 Dose: 10 ml Spironolactone (Aldactone) 50 mg PO DAILY [facility] Last Admin: 11/11/17 09:06 Dose: 50 mg Throat Lozenges (Cepacol) 1 lozenge PO PRN PRN PRN Reason: Sore Throat Vancomycin HCl (Vancomycin Per Pharmacy) 0 order IV UD [facility] Warfarin Sodium (Coumadin Per Pharmacy) 1 order PO UD [facility] Warfarin Sodium (Coumadin) 4 mg PO ONCE@1400 ONE Stop: 11/11/17 14:01 Medical - PN: A/P - Time Spent With Patient Total time spent is greater than 50% in coordination of care (as documented) at patient's floor/unit and/or counseling patient: 25 - 35 minutes (1) Infection of total knee replacement Status: Acute Current Visit: Yes - Narrative A/P Narrative: 67-year-old male with a history of cirrhosis, osteoarthritis, status post right total knee arthroplasty with revision and subsequent infection of revised prosthesis (liner was exchanged) and wound. Now with recurrent infection. Infected right total knee arthroplasty. Staphylococcus epidermidis on final culture with speciation. Recognized/common pathogen for prosthetic joint infection. Recommendations are for 6 weeks of therapy with vancomycin. Additional rifampin can be considered, would be hesitant to use rifampin in this patient with underlying liver disease, as carries risk of side effects. Current Staphylococcus different from the anaerobic species that was seen in one culture from July 09. 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 Currently compensated no evidence of encephalopathy. Plan: Continue with lactulose. Elevated blood glucoses. Likely stress reaction, resolved. HbA1c is normal. Medical - PN: Qual - VTE Deep Vein Thrombosis/Pulmonary Embolism Present on Admission: No
[2017-11-11] MEDS ORDERED: VANCOMYCIN 1,750 MG in 0.9 % SODIUM CHLORIDE 500 ML IV SCH (10:00)
--- NOTE | 2017-11-11 10:19 | Discharge Summary ---
Medical - DS: Prov Patient information: Note initiated : 11/11/17 at 10:03 am Service Date, if different from initiated Date: [] Patient: Jamie Aggarwal 67 y/o M admitted on 11/06/17 for Right Knee, Removal of Total Knee, I&D . Date of admission: 11/06/17 11:02 Discharge date: 11/11/17 Primary care physician: Vee Levine MD Admitting clinician: Eric Simmons Consults: 11/06/17 Consult to Physician [CONS] Urgent Comment: Consulting Provider: Pascale Estrada Reason For Exam: Physician to Consult Discharging clinician: Jennifer Duarte Medical - DS: Meds - Discharge Medications Prescriptions: HYDROcodone/APAP 10/325MG [Crosby 10/325Mg] 1 - 2 tab PO Q4H PRN #120 tab PRN Reason: Pain Vancomycin 1,750 mg IV Q12H #75 vial Warfarin [Coumadin] 4 mg PO DAILY #90 tab Active and Home Medications: Home Medications Furosemide [Lasix] 40 mg PO DAILY 06/11/17 [History Confirmed 11/06/17 Last Taken 11/04/17 08:00] Aspirin [Ecotrin] 325 mg PO BID #28 tab.ec 06/13/17 [Rx Confirmed 11/06/17 Last Taken 11/04/17 08:00] HYDROcodone/APAP 10/325MG [Crosby 10/325Mg] 1 - 2 tab PO Q4H PRN #90 tablet 06/13 [Rx Confirmed 11/01/17 Last Taken Unknown] Escitalopram 10 mg PO DAILY 07/12/17 [History Confirmed 11/06/17 Last Taken 08:00] oxyCODONE HCL [Roxicodone] 5 - 10 mg PO Q4HP PRN #60 tab 07/12/17 [Rx Confirmed 11/06/17 Last Taken 11/05/17 21:00] Escitalopram [Lexapro] 10 mg PO DAILY #30 tab 07/13/17 [Rx Confirmed 11/06/17 Last Taken 11/04/17 08:00] Lactulose [Cephulac] 20 gm PO TID oral.shaheed 07/13/17 [Rx Confirmed 11/06/17 Last Taken 11/05/17 21:00] Polyethylene Glycol 3350 [Miralax] 17 gm PO DAILYP PRN packet 07/13/17 [Rx Confirmed 11/06/17 Last Taken 11/05/17 08:00] Spironolactone [Aldactone] 50 mg PO DAILY tablet 07/13/17 [Rx Confirmed Last Taken 11/05/17 08:00] HYDROcodone/APAP 10/325MG [Crosby 10/325Mg] 1 - 2 tab PO Q4H PRN #120 tab [Rx Last Taken Unknown] Warfarin [Coumadin] 4 mg PO DAILY #90 tab 11/08/17 [Rx Last Taken Unknown] Medical - DS: Hosp Hospital course: The patient is a 67-year-old male with a history of cirrhosis from hepatitis C, status post right total knee arthroplasty proximally 3 years ago. He subsequently had revision for instability back in June with liner exchange. Intraoperative cultures at that time without growth. He did well initially, however he presented to [facility] on July 09, 2017 with complaints of surgical wound becoming red hot and swollen for 3-4 days. Apparently he had been working on a porch and had dehiscence of the wound. He had purulent drainage from the wound, and on July 10 he underwent irrigation debridement and had liner exchange and placement of antibiotic beads. Purulence extended into the wound at that time. Cultures were notable for eventual growth of Staphylococcus saccharolyticus on 1 of 3 anaerobic cultures, finalizing on July 20. All other aerobic and anaerobic cultures remained no growth. At that time he was started on vancomycin and ceftriaxone. He was eventually discharged from the hospital on July 13, and completed a 6 week course of antibiotics on August 24. He received vancomycin and ceftriaxone. Patient states he did well initially after antibiotics stopped, however then noted that he was having difficulty walking upstairs, apparently from pain in the knee. He also developed swelling of the knee. This occurred before . His symptoms continued to progress, particularly the swelling. Because of this, he presented to Dr. Simmons's office, who took him to the OR yesterday for incision and drainage. There is purulent material in the joint. He had removal of the hardware, a new femoral component and tibial component with antibiotics cementation antibiotic beads to allow weight bearing. Cultures were done intraoperatively. In addition to the patient's symptoms, inflammatory markers have worsened with a sedimentation rate of 65 and CRP of 8.0. Intraoperative cultures from this admission are growing Staphylococcus epidermidis. This is a recognized cause a prosthetic joint infections. Source is unclear, may have had transient bacteremia with hematogenous spread. Does not appear to be related to the infection on July 09. He will require 6 weeks of vancomycin trough in the 15 range. Rifampin is sometimes used as an adjunct, however in this case with his underlying liver disease and risk of significant hepatotoxicity would treat with vancomycin alone. On the day of discharge, he is on day 5 of vancomycin, the end date is 12/18/2017. The patient may benefit from outpatient infectious disease referral. One question would be whether he may benefit from prolonged oral suppressive therapy after IV vancomycin. Patient had elevated glucoses postoperatively, they normalized. His hemoglobin A1c was normal at 5.0. This likely represented a stress reaction. His cirrhosis remained compensated during this hospitalization. Discharge diagnosis: Staphylococcus epidermidis infection R TKA, status post I&D Secondary discharge diagnosis: Cirrhosis - Time Spent with Patient Total time spent providing and/or coordinating discharge services: Greater than 30 minutes Medical - DS: Exam - Constitutional Vitals: Vital Signs Temp Pulse Pulse Resp BP Pulse Ox 11/11/17 07:21 64 95 11/11/17 06:37 98.9 F 18 105/56 96 11/11/17 04:00 98.2 F 61 18 151/75 97 11/11/17 00:44 98.5 F 64 95 11/11/17 00:00 99.0 F H 55 L 18 115/65 96 11/10/17 20:00 99.5 F H 75 18 131/68 96 11/10/17 15:22 98.5 F 81 18 146/76 96 11/10/17 11:22 97.9 F 18 135/61 95 Intake and Output 11/10/17 11/11/17 11/11/17 21:59 05:59 13:59 Intake Total 894 / 894 1054 / 1054 174 / 174 Output Total 800 / 800 925 / 925 550 / 550 Balance 94 / 94 129 / 129 -376 / -376 Intake: IV 54 / 54 554 / 554 54 / 54 Cleocin 600 mg In Sodium 54 / 54 54 / 54 54 / 54 Chloride 0.9% 50 ml @ 100 mls/ hr IV Q8H COUNT INCLUDES [facility] Rx#:[id number] Vancomycin 1,500 mg In Sodium 500 / 500 Chloride 0.9% 500 ml @ 333.3 mls/hr IV Q12H COUNT INCLUDES THE [facility] Rx#: [id number] Oral 840 / 840 500 / 500 120 / 120 Output: Void Amount 800 / 800 925 / 925 550 / 550 Other: Meal Breakfast Percent of Meal Consumed 100% # Voids 2 # Bowel Movements 1 Weight 261 lb 8 oz 261 lb 8 oz Additional comments: General: Laying in bed, no distress Chest: Clear to auscultation, no rales Cardiovascular: Regular Abdomen: Soft, active bowel sounds Extremities: Right leg in knee brace. Neuro: Alert, oriented, no confusion, no asterixis. Medical - DS: Data Labs on day of discharge: Labs from last 24 hours 11/11/17 11/11/17 11/11/17 08:08 04:00 04:00 WBC 6.4 RBC 3.18 L Hgb 9.9 L Hct 29.0 L MCV 91.2 MCH 31.2 MCHC 34.2 RDW 16.5 H Plt Count 155 MPV 7.0 L Gran % 67.3 Lymph % (Auto) 15.2 L Evangeline % (Auto) 13.5 H Eos % (Auto) 3.7 Baso % (Auto) 0.3 Gran # 4.3 Lymph # (Auto) 1.0 L [place]eline # (Auto) 0.9 Eos # (Auto) 0.2 Baso # (Auto) 0 PT INR Sodium 136 Potassium 3.5 Chloride 98 Carbon Dioxide 30 Anion Gap 8.0 BUN 10 Creatinine 0.6 L GFR Calculation 103 Glucose 99 Calcium 8.6 Vancomycin Trough 11.0 11/11/17 04:00 WBC RBC Hgb Hct MCV MCH MCHC RDW Plt Count MPV Gran % Lymph % (Auto) Evangeline % (Auto) Eos % (Auto) Baso % (Auto) Gran # Lymph # (Auto) Ev[place]eline # (Auto) Eos # (Auto) Baso # (Auto) PT 21.1 H INR 1.8 H Sodium Potassium Chloride Carbon Dioxide Anion Gap BUN Creatinine GFR Calculation Glucose Calcium Vancomycin Trough Microbiology 11/06/17 18:17 Fungal Smear - Final Knee - Right Fungal Culture - Preliminary 11/06/17 18:18 Fungal Smear - Final Knee - Right Fungal Culture - Preliminary 11/06/17 18:17 Gram Stain - Final Knee - Right Gram Stain - Final Anaerobic Culture - Preliminary Gram Stain - Final Wound Culture - Final Staphylococcus epidermidis 11/06/17 18:18 Gram Stain - Final Knee - Right Gram Stain - Final Anaerobic Culture - Preliminary Gram Stain - Final Wound Culture - Final Staphylococcus epidermidis Medical - DS: A/P - Patient/Caregiver Discharge Instructions Activity: as instructed Diet: Consistent Carbohydrate Additional Instructions: Resume consistent carbohydrate diet as tolerated. Weight bearing as tolerated to right extremity. Dressing to right knee to be changed daily with silvasorb gel and gauze, VIK wrap. Elevate and use your cryocuff 4 times a day for 20 minutes at a time, to reduce pain and swelling. Prescriptions: HYDROcodone/APAP 10/325MG [Crosby 10/325Mg] 1 - 2 tab PO Q4H PRN #120 tab PRN Reason: Pain Warfarin [Coumadin] 4 mg PO DAILY #90 tab Other Amb Orders: OT Discharge Order Location: Determined By Patient Physical Therapy at Discharge - TKA Location: Determined By Patient Outpatient PICC Care Location: Determined By Patient Toilet Riser Discharge Order Location: Determined By Patient Walker Location: Determined By Patient Vancomycin,Trough Location: Determined By Patient - Problem Maintenance (1) Infection of total knee replacement Status: Acute Qualifiers: Encounter type: subsequent encounter Qualified Code(s): T84.59XD - Infection and inflammatory reaction due to other internal joint prosthesis, subsequent encounter; Z96.659 - Presence of unspecified artificial knee joint - Follow up Plan Follow up with: Vee Levine MD [Primary Care Provider] - (It has been recommended by Anesthesia to follow up with your Primary Care doctor concerning your lab work. They have been faxed to your doctor. Call to set up an appointment.) Bala Heller PA-C [Physician Rv Technician] - 11/21/17 1:40 pm Disposition: Xfer SNF Prognosis: Fair Rehab Potential: Fair I certify that the patient requires SNF services: Yes Overall status at discharge: patient is not back to baseline Medical - DS: Qual - VTE Deep Vein Thrombosis/Pulmonary Embolism Present on Admission: No
[2017-11-11] MEDS: VANCOMYCIN 1,500 MG in 0.9 % SODIUM CHLORIDE 500 ML IV SCH (11:31)
[2017-11-11] MEDS ORDERED: WARFARIN 4 MG TABLET PO ONE (14:00)
== END 2017-11-11 14:35 | DRG 465 ==
LOC: MEDSUR 11:02
PROVIDERS: ADMIT Orthopaedic Surgery; ATTEND Internal Medicine